=== PATIENT | female | born 2005 | race Caucasian/White ===

== ENCOUNTER 2024-10-18 14:02 | Emergency (ER) | payer OTHER, SELFPAY ==
[2024-10-18 14:32] VITALS: BP 118/65; PULSE 94; RESP 16; TEMP 36.4; O2SAT 99
--- NOTE | 2024-10-18 14:44 | ED.URI ---
HPI - URI/Sore Throat General Chief Complaint: Upper Respiratory Infection Stated Complaint: Sore Throat, Congestion, Achy Time Seen by Provider: 10/18/24 14:46 History of Present Illness HPI Narrative: 18-year-old female presented for complaint of sore throat, nasal congestion and body aches. Onset yesterday morning. Denies shortness of breath, wheezing, nausea vomiting diarrhea, fevers or chills. Taking ibuprofen, tylenol and nyquil. Related Data Allergies Allergy/AdvReac Type Severity Reaction Status Date / Time No Known Allergies Allergy Verified 10/18/24 14:47 Review of Systems Review of Systems: CONSTITUTIONAL: Denies fever, chills, or sweats. EYES: Denies visual changes, redness, or discharge. ENT: reports rhinorrhea, congestion, sore throat CARDIOVASCULAR: Denies chest pain, palpitations, or edema. RESPIRATORY: Denies dyspnea. GASTROINTESTINAL: Denies abdominal pain, nausea, vomiting, or diarrhea. SKIN: Denies rash NEUROLOGIC: Denies headache [facility] Social History Social History Smoking status: Never smoker Alcohol intake: never Exam Narrative: GENERAL: well-appearing EYES: conjunctivae clear ENT: Mucous membranes moist. TMs pearly pablo with normal light reflex bilaterally; no tragal tenderness. Oropharynx not erythematous without lesions. Tonsils enlarged 1+ and without exudate. No drooling, no hoarseness, no trismus, uvula midline. No tripod positioning, hot potato voice, or soft palate swelling. NECK: Supple. No lymphadenopathy CHEST: Clear to auscultation, breath sounds equal. No respiratory distress, speaks in full sentences. HEART: Regular rate and rhythm. No murmur heard. SKIN: Warm, dry, no rash. NEURO: Alert and oriented x3. Course Course Emergency Course: Patient is aware of diagnosis, understands and agrees to treatment plan. Anticipatory guidance given. Patient agrees to follow-up as directed and is aware of reasons to seek care at the emergency department. Portions of this record may have been created with voice recognition software Level of Care: Express Care Visit Vital Signs Vital signs: Vital Signs Temperature 97.6 F 10/18/24 14:32 Pulse Rate 94 10/18/24 14:32 Respiratory Rate 16 10/18/24 14:32 Blood Pressure 118/65 10/18/24 14:32 Pulse Oximetry 99 10/18/24 14:32 Temperature 97.6 F 10/18/24 14:32 Pulse Rate 94 10/18/24 14:32 Respiratory Rate 16 10/18/24 14:32 Blood Pressure 118/65 10/18/24 14:32 Pulse Oximetry 99 10/18/24 14:32 MDM - URI/Sore Throat MDM Narrative Medical decision making narrative: Negative flu, COVID, strep result reviewed with pt. Advise supportive treatments. Patient is appropriate for outpatient treatment and follow-up. Differential Diagnosis Differential diagnosis: Likely upper respiratory infection, viral infection and pharyngitis Lab Data Labs: Lab Results 10/18/24 Range/Units 14:46 POC Influenza A Ag Negative (Negative) POC Influenza B Ag Negative (Negative) POC SARS CoV-2 Ag Negative (Negative) POC Grp A Strep Screen Negative (Negative) Discharge Plan Discharge Clinical Impression: Upper respiratory infection Patient Disposition: Home, Self-Care Condition: Stable Instructions: Antibiotic Form, Upper Respiratory Infection (ED) Additional Instructions: Flu and COVID negative. Rapid strep swab was negative today You will be notified in a few days if the culture comes back positive for strep, and appropriate antibiotics will be called in at that time. if symptoms are due to a viral illness, it is not treated with antibiotics. Viral symptoms can be present for up to 10-14 days. Recommendations: Flonase spray and Zyrtec for sinus congestion Cough syrup may cause drowsiness; avoid driving or take it at night time. Tylenol every 8 hours as needed for pain/fever Soft foods, cool liquids, warm tea. Gargle with warm saltwater twice a day. Chloraseptic spray and throat lozenges. Rest and stay hydrated. --Follow up with your PCP --Go to the ER immediately if you cannot swallow your saliva, trouble breathing/wheezing, throat swelling, pain is persistent and severe Patient Language: Turkmen Follow-up/Referrals: Adrianne,Monet Ruth, CORPORATE COMPLIANCE MANAGER [Primary Care Provider] - Stand Alone Forms: Work/School Release IP Time of Disposition: 14:57
[2024-10-18 14:48] LABS: EDCOVIDSCREEN Negative (Negative); EDINFLUASCREEN Negative (Negative); EDINFLUBSCREEN Negative (Negative); EDSTREPNEGPOS1 Negative (Negative)
--- OUTSIDE RECORDS SUMMARY | 2024-10-25 16:37 | XMS_ITS | Clinical Summary ---
Author Organization [facility] Address On license of [facility] [place] [address] [place] [address] Care Team Providers Care Food And Beverage Cashier Name Role Phone Monet Silver [facility] Primary Care Provider + Allergies No known active allergies Medications busPIRone (BUSPAR) 15 MG tabletIndications: Situational anxiety TAKE 1 TABLET(15 MG) BY MOUTH TWICE DAILY 90 tablet 3 Active drospirenone-ethin yl estradiol (KISHOR) 3-0.02 MG tabletIndications: Encounter for initial prescription of contraceptive pills Take 1 tablet by mouth daily. 84 tablet 4 Active hydrOXYzine (ATARAX) 10 MG tabletIndications: Anxiety Take 1 tablet (10 mg total) by mouth 3 (three) times daily as needed for Itching. 30 tablet 5 4 Active Active Problems Problem Noted Date Diagnosed Date Anxiety 01/10/2024 BMI 22.0-22.9, adult 04/28/2018 Resolved Problems Problem Noted Date Diagnosed Date Resolved Date Well child visit 04/24/2018 07/01/2020 Immunizations Name Administration Dates Next Due Dtap (Acel-Immune) 06/22/2006, 5,04/19/2005,02/22 Dtap (Generic) 04/24/2016, 0,06/22/2006,06/14,04/19/2005,02/22/2005,01/12/2005 Flucelvax 6 Months+ (Prefill ed Syringe) 08/03/2019 HPV 11/05/2016,06/28/2016,05/04/2016 Hepatitis A Vaccine - 2 Dose 03/20/2007,06/22/20 06 Hepatitis B Pediatric 09/06/2005,01/17/2005,0310/2004 Hib Vaccine, Prp-D 06/22/2006, 5,04/19/2005,02/22 Influenza (Generic) 08/06/2008, 6,09/06/2005,08/01 Influenza Adult (Generic) 08/09/2023,07/30/2022, 08/01/2020 MMR (Generic) 12/29/2009,01/28/2006 Meningococcal (MenQuadfi) 07/18/2022 Meningococcal B 04/24/2016 PFIZER COVID-19 (WHALEY CAP), MRNA, LNP-S, PF, 30 MCG/0.3 ML TRACEY-SUCROSE, IM 11/10/2021 PFIZER COVID-19 (ORIGINAL FO RMULATION, PURPLE CAP) mRNA, LNP-S, PF, 30 MCG/0.3 ML DOSE 05/10/2021,04/17/2021 Pneumococcal (Generic) 01/28/2006,2004,04/19/2005,02/22 Polio Ipv (Generic) 01/28/2006,04/19/2005,2004 Polio Opv (Generic) 12/29/2009,04/09/2005,2004 Varicella Vaccine 12/29/2009,01/28/2006 Family History Medical History Relation Comments Diabetes Father Relation Status Comments Father Alive Mother Alive Social History Tobacco Use Types Packs/Day Years Used Date Smoking Tobacco: Never Smokeless Tobacco: Never Tobacco Cessation:Counseling Given: No Alcohol Use Standard Drinks/Week Comments No 0 (1 standard drink = 0.6 oz pur e alcohol) AUDIT-C Answer Date Recorded Frequency of Alcohol Consumption Never 04/30/2019 Average Number of Drinks Not on file 019 Frequency of Binge Drinking Not on file 04/20 PHQ-2 Answer Date Recorded Patient Health Questionnaire-2 Score 0 10/28/2023 Comments No Sex and Gender Information Value Date Recorded Sex Assigned at Not on file Legal Sex Female 6:09 PM CDT Gender Identity Not on file Sexual Orientation Not on file Last Filed Vital Signs Vital Sign Reading Time Taken Comments Blood Pressure 126/83 04/30/2024 4:50 PM CDT Pulse 93 04/30/2024 4:50 PM CDT Temperature 36.6 ??C (97.9 ??F) 04/30/2024 4:50 PM CD T Respiratory Rate 16 04/30/2024 4:50 PM CDT Oxygen Saturation 99% 04/30/2024 4:50 PM CDT Inhaled Oxygen Concentration - - Weight 80.7 kg (178 lb) 04/30/2024 4:50 PM CDT Height 180.3 cm (5' 11 ) 04/30/2024 4:50 PM CDT Body Mass Index 24.83 04/30/2024 4:50 PM CDT Plan of Treatment Health Maintenance Due Date Last Done Comments Hepatitis C 2022 COVID-19 Vaccine ( season) 2024 08/09/2023, 08/29/2022, 11/10/2021, Additional history exists Influenza Adult (#1) 2024 08/09/2023, 07/30/2022, 08/01/2020, Additional history exists Annual Physical 04/30/2025 04/30/2024, 10/2022, 07/18/2022, Additional history exists DTaP, Tdap and Td Vaccines (7 - Tdap) 04/24/2026 04/24/2016, 12/29/2009, 06/22/2006, Additional history exists Hepatitis B Vaccines Completed 09/06/2005, 01/17/2005, 2004 Pneumococcal Vaccine: Pediatrics (0 to 5 Years) and At-Risk Patients (6 to 64 Years) Aged Out 01/28/2006, 06/14/2005, 04/19/2005, Additional history exists No longer eligible based on patient's age to complete this topic HPV Vaccines Completed 11/05/2016, 05/2016, 05/04/2016 Meningococcal Vaccine Completed 07/18/2022, 016 RSV Immunizations Under 20 Months Aged Out No longer eligible based on patient's age to complete this topic Insurance [employer] Care Teams Food And Beverage Cashier Relationship Specialty Start Date End Date Monet Silver, MECHANICAL INSULATOR-BC [id number], [address] [place] [address] PCP - General Nurse Practitioner Family 10/28/23
--- OUTSIDE RECORDS SUMMARY | 2024-10-25 16:37 | XMS_ITS | Encounter Summary ---
Author Organization [facility] Address [address] [place] [address]. [place] [address] [place] [address] Care Team Providers Care Preparation Supervisor Name Role Phone Monet SilverP- Primary Care Provider + Encounter Details Date Type Department Care Team (Latest Contact Info) Description 04/22/2024 Scan HEALTH INFO SR[facility]CS Scanned, Doc Med Group Social History Tobacco Use Types Packs/Day Years Used Date Smoking Tobacco: Never Smokeless Tobacco: Never Alcohol Use Standard Drinks/Week Comments No 0 [...] on file Sexual Orientation Not on file documented as of this encounter Plan of Treatment Not on file documented as of this encounter Visit Diagnoses Not on filedocumented in this encounter Additional Health Concerns Assessment Noted Time PHQ-9 Depression Total Score: 0 10/28/19 24 4:50 PM SPINNER FRAME documented as of this encounter Care Teams Preparation Supervisor Relationship Specialty Start Date End Date Monet Silver FNP-TIP [id number], [address] [place] [id number] PCP - General Nurse Practitioner Family 10/28/23 documented as of this encounter
--- OUTSIDE RECORDS SUMMARY | 2024-10-25 16:37 | XMS_ITS | Encounter Summary ---
Author Organization [facility] Address [facility] [facility] [place] [address] [place] [address] Care Team Providers Care Wood Processing Worker Name Role Phone Monet Silver [facility] Primary Care Provider + Encounter Details Date Type Department Care Team (Late st Contact Info) Description 07/24/2024 Orders Only [facility] - [place] [address] [place] [address] Mike Garcia MD [address] [place] [address] Social History Tobacco Use Types Packs/Day Years [...] as of this encounter Plan of Treatment Scheduled Orders Name Type Priority Associated Diagnoses Orde r Schedule OXR LT FOOT M3V Imaging Routine Pain in left foot Expected: 07/27/2024, Expires: 07/24/2025 documented as of this encounter Visit Diagnoses Diagnosis Pain in left foot- Primary Pain in limb documented in this encounter Additional Health Concerns Assessment Noted Time PHQ-9 Depression Total Score: 0 10/28/19 4:50 PM AGRICULTURE LABORATORY TECHNICIAN documented as of this encounter Care Teams Wood Processing Worker Relationship Specialty Start Date End Date Monet Silver, DRAPERY ESTIMATOR- [phone], [address] [place] [id number] PCP - General Nurse Practitioner Family 10/28/23 documented as of this encounter
--- OUTSIDE RECORDS SUMMARY | 2024-10-25 16:37 | XMS_ITS | Patient Health Summary ---
Author Organization [facility] Address [address] [place] [address] Care Team Providers Care Researcher Name Role Phone Samina Bui MD Unavailable Tian Jenkins MD Primary Care Provider + [phone] Note from [facility],non-owned Affiliates and Associated Physician Practices is amultiple site organization consisting of ambulatory clinics and hospital sitesin [place], [place], [place] and [place]. This disclosure is being madepursuant to the Care Everywhere program and may not contain all information available regarding this patient. Last updated 18.[facility] Allergies No known active allergies Medications * Be aware that medications may not be up to date on this document. Alwaysverify current medications with the patient. * cetirizine (ZYRTEC) 5 MG/5ML syrup Take 2.5 mg by mouth daily. Immunizations * DTaP VACCINE IM (6wk-6yrs)(Given 06/22/2006, 06/14/2005, 04/19/2005, 02/22/2005) * HEP A PEDS 2 DOSE(Given 03/20/2007, 06/22/2006) * HEP B VACCINE, PED/ADOL(Given 09/06/2005, 01/17/2005, 2004) * HIB BOOSTER(Given 06/22/2006, 06/14/2005, 04/19/2005, 02/22/2005) * INFLUENZA(Given 08/06/2008, 08/01/2006, 09/06/2005, 08/01/2005) * MMR(Given 01/28/2006) * PNEUMOCOCCAL CONJ, PEDS(Given 01/28/2006, 06/14/2005, 04/19/2005, 02/22/2005) * POLIO IPV(Given 01/28/2006, 04/19/2005, 2004) * VARICELLA(Given 01/28/2006) Social History Tobacco Use Types Packs/Day Years Used Date Smoking Tobacco: Never Assessed Sex and Gender Information Value Date Recorded Sex Assigned at Not on file Gender Identity Not on file Sexual Orientation Not on file Last Filed Vital Signs Vital Sign Reading Time Taken Comments Blood Pressure 103/79 07/08/2010 9:40 PM CDT Pulse 109 07/08/2010 9:40 PM CDT Temperature 36.6 ??C (97.8 ??F) 07/08/2010 6:02 PM CD T Respiratory Rate 17 07/08/2010 9:40 PM CDT Oxygen Saturation 99% 07/08/2010 9:40 PM CDT Inhaled Oxygen Concentration - - Weight 23 kg (50 lb 11.3 oz) 07/08/2010 6:02 PM CDT Height - - Body Mass Index - - Procedures * ED SEDATION(Performed 07/08/2010) * ED SEDATION(Performed 07/08/2010) Results * ED SEDATION (07/08/2010 10:32 PM CDT) Narrative 07/08/2010 10:32 PM CDT 07/08/2010 ?6:31 PM Azalia Neri [id number] History Chief Complaint Patient presents with ? ? Laceration ??pt was running, tripped and fell into corner of [facility] cabinet. ?? Incident around 1430. ??No LOC. ??No vomiting. ??about 1.5cm laceration. ??bleeding controlled. Laceration The incident occurred 3 to 5 hours ago. The laceration is located on the face.The laceration is 2 cm in size. The depth of the laceration is through muscle.The quality of the laceration is: straight.The pain has been improving since onset. She reports no foreign bodies present. Her tetanus status is UTD. Past Medical History Diagnosis Date ? ? Routine or Child Health Check 08/02/08 ? ? Acute Upper Respiratory Infections of Unspecified Site 09/26/07, 12/16/07 ??02/20/08 ? ? UNSPECIFIED OTITIS MEDIA 12/16/07 ? ? Unspecified Otalgia 12/29/07 ? ? Acute Pharyngitis 04/13/08 ? ? Unspecified Esotropia 04/13/08 ? ? Streptococcal Sore Throat 11/02/08 ? ? Acute Sinusitis, Unspecified 01/01/09 No past surgical history on file. History Social History ? ? Marital Status: Single ??Spouse Name: N/A ??Number of Children: N/A ? ? Years of Education: N/A Occupational History ? ? Not on file. Social History Main Topics ? ? Tobacco Use: Not on file ? ? Alcohol Use: Not on file ? ? Drug Use: Not on file ? ? Sexually Active: Not on file Other Topics Concern ? ? Not on file Social History Narrative ? ? No narrative on file Medications Current outpatient prescriptions Medication Sig Dispense Refill ? ? cetirizine (ZYRTEC) 5 MG/5ML syrup Take 2.5 mg by mouth daily. ? Review of Systems Constitutional: Negative. ?? HENT: Negative. ?? Eyes: Negative. ?? Respiratory: Negative. ?? Cardiovascular: Negative. ?? Neurological: Negative for dizziness and headaches. BP 102/72 Pulse 104 Temp 97.8 ??F Resp 22 Wt 23 kg (50 lb 11.3 oz) Physical Exam Constitutional: She appears well-developed and well-nourished. She is active. HENT: Head: Atraumatic. Right Ear: Tympanic membrane normal. Left Ear: Tympanic membrane normal. Nose: Nose normal. Mouth/Throat: Dentition is normal. Oropharynx is clear. ? 2 cm horizontal laceration through muscle above left eyebrow Eyes: Conjunctivae and extraocular motions are normal. Pupils are equal, round, and reactive to light. Neck: Normal range of motion. Neck supple. Cardiovascular: Normal rate, regular rhythm, S1 normal and S2 normal. ?? Pulmonary/Chest: Effort normal and breath sounds normal. Procedures Sedation Date/Time: 07/08/2010 7:29 PM Performed by: MILA LOVE Authorized by: MILA LOVE Consent: Written consent obtained. Risks and benefits: risks, benefits and alternatives were discussed Consent given by: parent Patient understanding: patient states understanding of the procedure being performed Patient consent: the patient's understanding of the procedure matches consent given Procedure consent: procedure consent matches procedure scheduled Relevant documents: relevant documents present and verified Test results: test results available and properly labeled Site marked: the operative site was marked Imaging studies: imaging studies available Required items: required blood products, implants, devices, and special equipment available Patient identity confirmed: arm band Time out: Immediately prior to procedure a time out was called to verify the correct patient, procedure, equipment, ict customer support officer and site/side marked as required. ASA Class I-No underlying medical problems Likelihood of discomfort High Ability to remain immobile Poor Anticipated level of sedation Moderate History of sleep apnea/snoring No Limited ROM-head,mouth,neck No Loose or chipped teeth No Chest assessment Clear Heart assessment Regular Rhythm Patient sedated: yes Sedation Date/Time: 07/08/2010 8:30 PM Performed by: MILA LOVE Authorized by: MILA LOVE Consent: Written consent obtained. Consent given by: parent Patient understanding: patient states understanding of the procedure being performed Patient consent: the patient's understanding of the procedure matches consent given Procedure consent: procedure consent matches procedure scheduled Relevant documents: relevant documents present and verified Test results: test results available and properly labeled Site marked: the operative site was marked Imaging studies: imaging studies available Required items: required blood products, implants, devices, and special equipment available Patient identity confirmed: arm band Time out: Immediately prior to procedure a time out was called to verify the correct patient, procedure, equipment, ict customer support officer and site/side marked as required. ASA Class I-No underlying medical problems Likelihood of discomfort High Ability to remain immobile Poor Anticipated level of sedation Moderate History of sleep apnea/snoring No Limited ROM-head,mouth,neck No Loose or chipped teeth No Chest assessment Clear Heart assessment Regular Rhythm Patient sedated: no Patient tolerance: Patient tolerated the procedure well with no immediate complications. EKG Interpretation Lab/SPO2 Interpretation Medical Decision Making I have reviewed the: Nursing Notes and Vitals. I have discussed the case with ENT. Progress Notes: I have personally seen and examined this patient. I have fully participated in the care of this patient. I have reviewed all pertinent clinical information, including history, physical exam and plan. I have reviewed the nurses notes. I have reviewed available labs and radiographic studies. ? ED Plan/Course: laceration repaired by ENT-see procedure note. Clinical Impression: facial laceration Procedure Note Mila Love MD - 07/08/2010 6:31 PM CDT 07/08/2010 6:31 PM Azalia E Halle [id number] History Chief Complaint Patient presents with ? ? Laceration pt was running, tripped and fell into corner of [facility] cabinet. Incidentaround 1430. No LOC. No vomiting. about 1.5cm laceration. bleedingcontrolled. Laceration The incident occurred 3 to 5 hours ago. The laceration is located on theface.The laceration is 2 cm in size. The depth of the laceration isthrough muscle.The quality of the laceration is: straight.The pain hasbeen improving since onset. She reports no foreign bodies present. Hertetanus status is UTD. Past Medical History Diagnosis Date ? ? Routine Infant or Child Health Check 08/02/08 ? ? Acute Upper Respiratory Infections of Unspecified Site 09/26/07,12/16/07 02/20/08 ? ? UNSPECIFIED OTITIS MEDIA 12/16/07 ? ? Unspecified Otalgia 12/29/07 ? ? Acute Pharyngitis 04/13/08 ? ? Unspecified Esotropia 04/13/08 ? ? Streptococcal Sore Throat 11/02/08 ? ? Acute Sinusitis, Unspecified 01/01/09 No past surgical history on file. History Social History ? ? Marital Status: Single Spouse Name: N/A Number of Children: N/A ? ? Years of Education: N/A Occupational History ? ? Not on file. Social History Main Topics ? ? Tobacco Use: Not on file ? ? Alcohol Use: Not on file ? ? Drug Use: Not on file ? ? Sexually Active: Not on file Other Topics Concern ? ? Not on file Social History Narrative ? ? No narrative on file Medications Current outpatient prescriptions Medication Sig Dispense Refill ? ? cetirizine (ZYRTEC) 5 MG/5ML syrup Take 2.5 mg by mouth daily. Review of Systems Constitutional: Negative. HENT: Negative. Eyes: Negative. Respiratory: Negative. Cardiovascular: Negative. Neurological: Negative for dizziness and headaches. BP 102/72 Pulse 104 Temp 97.8 ??F Resp 22 Wt 23 kg (50 lb 11.3oz) Physical Exam Constitutional: She appears well-developed and well-nourished. She isactive. HENT: Head: Atraumatic. Right Ear: Tympanic membrane normal. Left Ear: Tympanic membrane normal. Nose: Nose normal. Mouth/Throat: Dentition is normal. Oropharynx is clear. 2 cm horizontal laceration through muscle above left eyebrow Eyes: Conjunctivae and extraocular motions are normal. Pupils are equal,round, and reactive to light. Neck: Normal range of motion. Neck supple. Cardiovascular: Normal rate, regular rhythm, S1 normal and S2 normal. Pulmonary/Chest: Effort normal and breath sounds normal. Procedures Sedation Date/Time: 07/08/2010 7:29 PM Performed by: MILA LOVE Authorized by: MILA LOVE Consent: Written consent obtained. Risks and benefits: risks, benefits and alternatives were discussed Consent given by: parent Patient understanding: patient states understanding of the procedure beingperformed Patient consent: the patient's understanding of the procedure matchesconsent given Procedure consent: procedure consent matches procedure scheduled Relevant documents: relevant documents present and verified Test results: test results available and properly labeled Site marked: the operative site was marked Imaging studies: imaging studies available Required items: required blood products, implants, devices, and specialequipment available Patient identity confirmed: arm band Time out: Immediately prior to procedure a time out was called to verifythe correct patient, procedure, equipment, ict customer support officer and site/sidemarked as required. ASA Class I-No underlying medical problems Likelihood of discomfort High Ability to remain immobile Poor Anticipated level of sedation Moderate History of sleep apnea/snoring No Limited ROM-head,mouth,neck No Loose or chipped teeth No Chest assessment Clear Heart assessment Regular Rhythm Patient sedated: yes Sedation Date/Time: 07/08/2010 8:30 PM Performed by: MILA LOVE Authorized by: MILA LOVE Consent: Written consent obtained. Consent given by: parent Patient understanding: patient states understanding of the procedure beingperformed Patient consent: the patient's understanding of the procedure matchesconsent given Procedure consent: procedure consent matches procedure scheduled Relevant documents: relevant documents present and verified Test results: test results available and properly labeled Site marked: the operative site was marked Imaging studies: imaging studies available Required items: required blood products, implants, devices, and specialequipment available Patient identity confirmed: arm band Time out: Immediately prior to procedure a time out was called to verifythe correct patient, procedure, equipment, ict customer support officer and site/sidemarked as required. ASA Class I-No underlying medical problems Likelihood of discomfort High Ability to remain immobile Poor Anticipated level of sedation Moderate History of sleep apnea/snoring No Limited ROM-head,mouth,neck No Loose or chipped teeth No Chest assessment Clear Heart assessment Regular Rhythm Patient sedated: no Patient tolerance: Patient tolerated the procedure well with no immediatecomplications. EKG Interpretation Lab/SPO2 Interpretation Medical Decision Making I have reviewed the: Nursing Notes and Vitals. I have discussed the case with ENT. Progress Notes: I have personally seen and examined this patient. I havefully participated in the care of this patient. I have reviewed allpertinent clinical information, including history, physical exam and plan.I have reviewed the nurses notes. I have reviewed available labs andradiographic studies. ED Plan/Course: laceration repaired by ENT-see procedure note. Clinical Impression: facial laceration Mila Love MD PROCEDURE/MINOR SURG ICAL ORDERABLES * ED SEDATION (07/08/2010 10:32 PM CDT) Narrative 07/08/2010 10:32 PM CDT 07/08/2010 ?6:31 PM Azalia Neri [id number] History Chief Complaint Patient presents with ? ? Laceration ??pt was running, tripped and fell into corner of [facility] cabinet. ?? Incident around 1430. ??No LOC. ??No vomiting. ??about 1.5cm laceration. ??bleeding controlled. Laceration The incident occurred 3 to 5 hours ago. The laceration is located on the face.The laceration is 2 cm in size. The depth of the laceration is through muscle.The quality of the laceration is: straight.The pain has been improving since onset. She reports no foreign bodies present. Her tetanus status is UTD. Past Medical History Diagnosis Date ? ? Routine Infant or Child Health Check 08/02/08 ? ? Acute Upper Respiratory Infections of Unspecified Site 09/26/07, 12/16/07 ??02/20/08 ? ? UNSPECIFIED OTITIS MEDIA 12/16/07 ? ? Unspecified Otalgia 12/29/07 ? ? Acute Pharyngitis 04/13/08 ? ? Unspecified Esotropia 04/13/08 ? ? Streptococcal Sore Throat 11/02/08 ? ? Acute Sinusitis, Unspecified 01/01/09 No past surgical history on file. History Social History ? ? Marital Status: Single ??Spouse Name: N/A ??Number of Children: N/A ? ? Years of Education: N/A Occupational History ? ? Not on file. Social History Main Topics ? ? Tobacco Use: Not on file ? ? Alcohol Use: Not on file ? ? Drug Use: Not on file ? ? Sexually Active: Not on file Other Topics Concern ? ? Not on file Social History Narrative ? ? No narrative on file Medications Current outpatient prescriptions Medication Sig Dispense Refill ? ? cetirizine (ZYRTEC) 5 MG/5ML syrup Take 2.5 mg by mouth daily. ? Review of Systems Constitutional: Negative. ?? HENT: Negative. ?? Eyes: Negative. ?? Respiratory: Negative. ?? Cardiovascular: Negative. ?? Neurological: Negative for dizziness and headaches. BP 102/72 Pulse 104 Temp 97.8 ??F Resp 22 Wt 23 kg (50 lb 11.3 oz) Physical Exam Constitutional: She appears well-developed and well-nourished. She is active. HENT: Head: Atraumatic. Right Ear: Tympanic membrane normal. Left Ear: Tympanic membrane normal. Nose: Nose normal. Mouth/Throat: Dentition is normal. Oropharynx is clear. ? 2 cm horizontal laceration through muscle above left eyebrow Eyes: Conjunctivae and extraocular motions are normal. Pupils are equal, round, and reactive to light. Neck: Normal range of motion. Neck supple. Cardiovascular: Normal rate, regular rhythm, S1 normal and S2 normal. ?? Pulmonary/Chest: Effort normal and breath sounds normal. Procedures Sedation Date/Time: 07/08/2010 7:29 PM Performed by: MILA LOVE Authorized by: MILA LOVE Consent: Written consent obtained. Risks and benefits: risks, benefits and alternatives were discussed Consent given by: parent Patient understanding: patient states understanding of the procedure being performed Patient consent: the patient's understanding of the procedure matches consent given Procedure consent: procedure consent matches procedure scheduled Relevant documents: relevant documents present and verified Test results: test results available and properly labeled Site marked: the operative site was marked Imaging studies: imaging studies available Required items: required blood products, implants, devices, and special equipment available Patient identity confirmed: arm band Time out: Immediately prior to procedure a time out was called to verify the correct patient, procedure, equipment, ict customer support officer and site/side marked as required. ASA Class I-No underlying medical problems Likelihood of discomfort High Ability to remain immobile Poor Anticipated level of sedation Moderate History of sleep apnea/snoring No Limited ROM-head,mouth,neck No Loose or chipped teeth No Chest assessment Clear Heart assessment Regular Rhythm Patient sedated: yes Sedation Date/Time: 07/08/2010 8:30 PM Performed by: MILA LOVE Authorized by: MILA LOVE Consent: Written consent obtained. Consent given by: parent Patient understanding: patient states understanding of the procedure being performed Patient consent: the patient's understanding of the procedure matches consent given Procedure consent: procedure consent matches procedure scheduled Relevant documents: relevant documents present and verified Test results: test results available and properly labeled Site marked: the operative site was marked Imaging studies: imaging studies available Required items: required blood products, implants, devices, and special equipment available Patient identity confirmed: arm band Time out: Immediately prior to procedure a time out was called to verify the correct patient, procedure, equipment, ict customer support officer and site/side marked as required. ASA Class I-No underlying medical problems Likelihood of discomfort High Ability to remain immobile Poor Anticipated level of sedation Moderate History of sleep apnea/snoring No Limited ROM-head,mouth,neck No Loose or chipped teeth No Chest assessment Clear Heart assessment Regular Rhythm Patient sedated: no Patient tolerance: Patient tolerated the procedure well with no immediate complications. EKG Interpretation Lab/SPO2 Interpretation Medical Decision Making I have reviewed the: Nursing Notes and Vitals. I have discussed the case with ENT. Progress Notes: I have personally seen and examined this patient. I have fully participated in the care of this patient. I have reviewed all pertinent clinical information, including history, physical exam and plan. I have reviewed the nurses notes. I have reviewed available labs and radiographic studies. ? ED Plan/Course: laceration repaired by ENT-see procedure note. Clinical Impression: facial laceration Procedure Note Mila Love MD - 07/08/2010 6:31 PM CDT 07/08/2010 6:31 PM Azalia Neri [id number] History Chief Complaint Patient presents with ? ? Laceration pt was running, tripped and fell into corner of [facility]. Incidentaround 1430. No LOC. No vomiting. about 1.5cm laceration. bleedingcontrolled. Laceration The incident occurred 3 to 5 hours ago. The laceration is located on theface.The laceration is 2 cm in size. The depth of the laceration isthrough muscle.The quality of the laceration is: straight.The pain hasbeen improving since onset. She reports no foreign bodies present. Hertetanus status is UTD. Past Medical History Diagnosis Date ? ? Routine Infant or Child Health Check 08/02/08 ? ? Acute Upper Respiratory Infections of Unspecified Site 09/26/07,12/16/07 02/20/08 ? ? UNSPECIFIED OTITIS MEDIA 12/16/07 ? ? Unspecified Otalgia 12/29/07 ? ? Acute Pharyngitis 04/13/08 ? ? Unspecified Esotropia 04/13/08 ? ? Streptococcal Sore Throat 11/02/08 ? ? Acute Sinusitis, Unspecified 01/01/09 No past surgical history on file. History Social History ? ? Marital Status: Single Spouse Name: N/A Number of Children: N/A ? ? Years of Education: N/A Occupational History ? ? Not on file. Social History Main Topics ? ? Tobacco Use: Not on file ? ? Alcohol Use: Not on file ? ? Drug Use: Not on file ? ? Sexually Active: Not on file Other Topics Concern ? ? Not on file Social History Narrative ? ? No narrative on file Medications Current outpatient prescriptions Medication Sig Dispense Refill ? ? cetirizine (ZYRTEC) 5 MG/5ML syrup Take 2.5 mg by mouth daily. Review of Systems Constitutional: Negative. HENT: Negative. Eyes: Negative. Respiratory: Negative. Cardiovascular: Negative. Neurological: Negative for dizziness and headaches. BP 102/72 Pulse 104 Temp 97.8 ??F Resp 22 Wt 23 kg (50 lb 11.3oz) Physical Exam Constitutional: She appears well-developed and well-nourished. She isactive. HENT: Head: Atraumatic. Right Ear: Tympanic membrane normal. Left Ear: Tympanic membrane normal. Nose: Nose normal. Mouth/Throat: Dentition is normal. Oropharynx is clear. 2 cm horizontal laceration through muscle above left eyebrow Eyes: Conjunctivae and extraocular motions are normal. Pupils are equal,round, and reactive to light. Neck: Normal range of motion. Neck supple. Cardiovascular: Normal rate, regular rhythm, S1 normal and S2 normal. Pulmonary/Chest: Effort normal and breath sounds normal. Procedures Sedation Date/Time: 07/08/2010 7:29 PM Performed by: MILA LOVE Authorized by: MILA LOVE Consent: Written consent obtained. Risks and benefits: risks, benefits and alternatives were discussed Consent given by: parent Patient understanding: patient states understanding of the procedure beingperformed Patient consent: the patient's understanding of the procedure matchesconsent given Procedure consent: procedure consent matches procedure scheduled Relevant documents: relevant documents present and verified Test results: test results available and properly labeled Site marked: the operative site was marked Imaging studies: imaging studies available Required items: required blood products, implants, devices, and specialequipment available Patient identity confirmed: arm band Time out: Immediately prior to procedure a time out was called to verifythe correct patient, procedure, equipment, ict customer support officer and site/sidemarked as required. ASA Class I-No underlying medical problems Likelihood of discomfort High Ability to remain immobile Poor Anticipated level of sedation Moderate History of sleep apnea/snoring No Limited ROM-head,mouth,neck No Loose or chipped teeth No Chest assessment Clear Heart assessment Regular Rhythm Patient sedated: yes Sedation Date/Time: 07/08/2010 8:30 PM Performed by: MILA LOVE Authorized by: MILA LOVE Consent: Written consent obtained. Consent given by: parent Patient understanding: patient states understanding of the procedure beingperformed Patient consent: the patient's understanding of the procedure matchesconsent given Procedure consent: procedure consent matches procedure scheduled Relevant documents: relevant documents present and verified Test results: test results available and properly labeled Site marked: the operative site was marked Imaging studies: imaging studies available Required items: required blood products, implants, devices, and specialequipment available Patient identity confirmed: arm band Time out: Immediately prior to procedure a time out was called to verifythe correct patient, procedure, equipment, ict customer support officer and site/sidemarked as required. ASA Class I-No underlying medical problems Likelihood of discomfort High Ability to remain immobile Poor Anticipated level of sedation Moderate History of sleep apnea/snoring No Limited ROM-head,mouth,neck No Loose or chipped teeth No Chest assessment Clear Heart assessment Regular Rhythm Patient sedated: no Patient tolerance: Patient tolerated the procedure well with no immediatecomplications. EKG Interpretation Lab/SPO2 Interpretation Medical Decision Making I have reviewed the: Nursing Notes and Vitals. I have discussed the case with ENT. Progress Notes: I have personally seen and examined this patient. I havefully participated in the care of this patient. I have reviewed allpertinent clinical information, including history, physical exam and plan.I have reviewed the nurses notes. I have reviewed available labs andradiographic studies. ED Plan/Course: laceration repaired by ENT-see procedure note. Clinical Impression: facial laceration Mila Love MD PROCEDURE/MINOR SURG ICAL ORDERABLES Care Teams Researcher Relationship Specialty Start Date End Date Samina Bui MD PCP - Pediatrics 08/25/09 Tian Jenkins MD [address] [place] [address] PCP - General 07/08/10
--- OUTSIDE RECORDS SUMMARY | 2024-10-25 16:37 | XMS_ITS | Encounter Summary ---
Author Organization [facility] Address Formerly [facility] [place] [address] [place] [address] Care Team Providers Care Tree Climber Name Role Phone Monet SilverP- Primary Care Provider + Encounter Details Date Type Department Care Team (Latest Contact Info) Description 04/22/2024 Travel Social History Tobacco Use Types Packs/Day Years [...] Total Score: 0 10/28/19 24 4:50 PM MAINTENANCE AND OPERATIONS SUPERVISOR documented as of this encounter Care Teams Tree Climber Relationship Specialty Start Date End Date Monet Silver FNP-BC [address], [address] [place] [address] PCP - General Nurse Practitioner Family 10/28/23 documented as of this encounter
--- OUTSIDE RECORDS SUMMARY | 2024-10-25 16:37 | XMS_ITS | Encounter Summary ---
Author Organization [facility] Address Formerly [facility] [facility] [place] [place] [address] [place] [address] Care Team Providers Care Piece Hand Name Role Phone Nika Fitzgerald [facility] Primary Care Provider + Reason for Visit * Reason Comments Medication Follow up medication renewal Encounter Details Date Type Department Care Team (Late st Contact Info) Description 04/30/2024 4:40 PM CDT Office Visit [facility] [id number] [place] [id number] Nika Fitzgerald, [facility] [id number] [place] [address] [address] [place] [address] Medication (Follow up medication renewal) Social History Tobacco Use Types Packs/Day Years [...] on file documented as of this encounter Last Filed Vital Signs Vital Sign Reading [...] Mass Index 24.83 04/30/2024 4:50 PM CDT documented in this encounter Progress Notes * Nika Fitzgerald, AUTOMOTIVE SALES EXECUTIVE-BC - 04/30/2024 4:40 PM CDT Reason for Visit: SPORTS PHYSICAL EXAM: History of Present Illness: Azalia Neri is a 18-year-old female with past medical history of anxiety. She presents to the clinic today for sports physical. Today, she reports feeling well, and without any health complaints. She denies history of concussion, arrhythmia, heart murmur, seizure disorder, asthma, musculoskeletal injuries or disease. She saw orthopedics for evaluation of foot pain and no surgery wasneeded. She was advised against surgery due to its risks and low success rate. The doctor explainedthat the pain was due to tight calf muscles putting pressure on the toes, causing inflammation. Thepatient is doing calf stretches and has been prescribed insoles for her shoes. The foot pain does not interfere with daily activities but may be problematic during sports season. She reports her uncle recently from sudden at age 45 yo. She denies dizziness, CP, dyspnea, or near syncope. She has had palpitations in the past that she attributed to anxiety. Echocardiogram and holter monitor were ordered but she has not yet scheduled. Past Medical History: Diagnosis Date Allergy seasonal Anxiety No past surgical history on file. Family History Problem Relation Name Age of Onset Diabetes Father Aren Social History Tobacco Use Smoking status: Never Smokeless tobacco: Never Vaping Use Vaping status: Never Used Substance Use Topics Alcohol use: No Drug use: No Review of Systems - General: No new diagnoses since the last visit. Reports not having fevers, chills, or night sweats. - Cardiovascular: No chest pain, shortness of breath, irregular heartbeat, or murmurs. Family history includes an uncle who suddenly at age 45 due to a heart-related issue. - Respiratory: No shortness of breath, wheezing. - Gastrointestinal: No diarrhea, constipation. - Genitourinary: No urinary symptoms. - Musculoskeletal: No broken bones, back pain, or injuries. Able to perform various movements without issues. - Neurological: No history of seizures, head injuries, dizziness, or fainting. No numbness or tingling. - Psychiatric: History of anxiety, no recent changes. - Dermatologic: No rashes. - HEENT: No hearing issues, ringing in ears, trouble swallowing. No lumps or changes in the breast. - Ophthalmologic: Vision test required, last checked during the last physical. - Allergies: No changes in allergies. Patient has no known allergies. Current Outpatient Medications Medication Instructions busPIRone (BUSPAR) 15 MG tablet TAKE 1 TABLET(15 MG) BY MOUTH TWICE DAILY drospirenone-ethinyl estradiol (KISHOR) 3-0.02 MG tablet 1 tablet, Oral, Daily hydrOXYzine (ATARAX) 10 mg, Oral, 3 times daily PRN OBJECTIVE: Vitals: 04/30/24 1650 BP: 126/83 Pulse: 93 Resp: 16 Temp: 97.9 ??F (36.6 ??C) SpO2: 99% Body mass index is 24.83 kg/m??. Physical Exam Vitals reviewed. Constitutional: General: She is not in acute distress. Appearance: Normal appearance. She is normal weight. She is not ill-appearing or toxic-appearing. HENT: Head: Normocephalic and atraumatic. Right Ear: Tympanic membrane, ear canal and external ear normal. There is no impacted cerumen. Left Ear: Tympanic membrane, ear canal and external ear normal. There is no impacted cerumen. Nose: Nose normal. Mouth/Throat: Mouth: Mucous membranes are moist. Pharynx: Oropharynx is clear. Eyes: General: No scleral icterus. Right eye: No discharge. Left eye: No discharge. Extraocular Movements: Extraocular movements intact. Conjunctiva/sclera: Conjunctivae normal. Pupils: Pupils are equal, round, and reactive to light. Neck: Thyroid: No thyroid mass, thyromegaly or thyroid tenderness. Vascular: No carotid bruit. Trachea: Trachea normal. Cardiovascular: Rate and Rhythm: Normal rate and regular rhythm. Pulses: Normal pulses. Radial pulses are 2+ on the right side and 2+ on the left side. Dorsalis pedis pulses are 2+ on the right side and 2+ on the left side. Heart sounds: Normal heart sounds. No murmur heard. No gallop. Pulmonary: Effort: Pulmonary effort is normal. No respiratory distress. Breath sounds: Normal breath sounds. No wheezing, rhonchi or rales. Abdominal: General: Bowel sounds are normal. There is no distension. Palpations: Abdomen is soft. There is no mass. Tenderness: There is no abdominal tenderness. There is no right CVA tenderness, left CVA tendernessor guarding. Musculoskeletal: General: No swelling, tenderness, deformity or signs of injury. Normal range of motion. Cervical back: Normal range of motion and neck supple. Right lower leg: No edema. Left lower leg: No edema. Lymphadenopathy: Cervical: No cervical adenopathy. Skin: General: Skin is warm and dry. Capillary Refill: Capillary refill takes less than 2 seconds. Findings: No lesion or rash. Neurological: General: No focal deficit present. Mental Status: She is alert and oriented to person, place, and time. Cranial Nerves: Cranial nerves 2-12 are intact. Sensory: Sensation is intact. Motor: Motor function is intact. No weakness or tremor. Coordination: Coordination is intact. Gait: Gait is intact. Deep Tendon Reflexes: Reflex Scores: Bicep reflexes are 2+ on the right side and 2+ on the left side. Patellar reflexes are 2+ on the right side and 2+ on the left side. Psychiatric: Mood and Affect: Mood and affect normal. Speech: Speech normal. Speech is not slurred. Behavior: Behavior normal. Behavior is cooperative. Thought Content: Thought content normal. Cognition and Memory: Cognition normal. Judgment: Judgment normal. VISION: Right Eye: 20/20 Left Eye: 20/20 ASSESSMENT: Healthy 18-year-old female who is cleared for sports activities as desired pending negative EKG. Encounter Diagnose(s) ICD-10-CM SNOMED CT(R) 1. Routine sports physical exam Z02.5 SPECIAL EXAMINATION STATUS ECG 12 lead 2. Family history of sudden Z84.89 FAMILY HISTORY OF SUDDEN ECG 12 lead PLAN: School Preparticipation Examination form reviewed with gaurdian and student, and completed, and will be released to patient pending EKG results. [facility] Certificate of Child Health Examination Form reviewed, including immunizations,health history, risk evaluation. Physical exam portion completed and signed, with approval for physical education and interscholastic sports for the next year.* Immunizations reviewed and Up to date. 4. Anticipatory guidance on diet, activity, safe sex, tobacco use, substance use and abuse. She verbalized understanding. RADHA DILLON 05/10/2023 5:14 PM documented in this encounter Plan of Treatment Not on file documented as of this encounter Results * ECG 12 lead (05/20/2024 11:13 AM CDT) 05/20/2024 11:1 3 AM CDT Narrative [facility] - 05/22/2024 5:15 PM CDT ?[facility] ? Test Date: ?2024-05-20 Pat Name: ? AZALIAMAYRA BUSCHKODAK ?Department: ?? 85 ? Room: ? Gender: ? Female ? Disc Jockey: ?? : ?2005 ? Requested By: NIKA FITZGERALD Order Number: [id number] ? Reading : ?? Buddy Allen ? Measurements Intervals ?Otto ? Rate: ? 70 ? P: ?53 TX: ? 182 ?QRS: ?47 QRSD: ? 96 ? T: ?33 QT: ? 363 ? QTc: ?392 ? Interpretive Statements SINUS RHYTHM Compared to ECG 10/19/2019 11:32:52 No significant changes Procedure Note Buddy Allen MD - 05/22/2024 [facility] Test Date: 2024-05-20 Pat Name: AZALIA NERI Department: 85 Room: Gender: Female Disc Jockey: : 2005 Requested By: NIKA FITZGERALD Order Number: [id number] Reading MD: Buddy Allen Measurements Intervals Otto Rate: 70 P: 53 TX: 182 QRS: 47 QRSD: 96 T: 33 QT: 363 QTc: 392 Interpretive Statements SINUS RHYTHM Compared to ECG 10/19/2019 11:32:52 No significant changes us Nika WOOD-TIP ECG ORDERABLES Final Re sult [facility] documented in this encounter Visit Diagnoses Diagnosis Routine sports physical exam- Primary Other general medical examination for administrative purposes Family history of sudden Family history of other condition Routine sports physical exam Other general medical examination for administrative purposes Family history of sudden Family history of other condition documented in this encounter Additional Health Concerns Assessment Noted Time PHQ-9 Depression Total Score: 0 10/28/19 24 4:50 PM [facility] documented as of this encounter Care Teams Piece Hand Relationship Specialty Start Date End Date Nika Fitzgerald FNP-BC [address] [facility], [address] [place] [address] PCP - General Nurse Practitioner Family 10/28/23 documented as of this encounter
--- OUTSIDE RECORDS SUMMARY | 2024-10-25 16:37 | XMS_ITS | Referral Summary ---
Author Organization [facility] Address [address] [place] [address] Care Team Providers Care Park Activities Coordinator Name Role Phone Samina Bui MD Unavailable Tian Jenkins MD Primary Care Provider [phone] Source Comments [facility],non-owned Affiliates and Associated Physician Practices is amultiple site organization consisting of ambulatory clinics and hospital sitesin [place], [place], [place] and [place]. This disclosure is being madepursuant to the Care Everywhere program and may not contain all information available regarding this patient. Last updated 18.[facility] [employer] Allergies No known active allergies Medications * Be aware that medications may not be up to date on this document. Alwaysverify current medications with the patient. Medication Sig Dispensed Refills Start Date End Date Status cetirizine (ZYRTEC) 5 MG/5ML syrup Take 2.5 mg by mouth daily. Active Immunizations Name Administration Dates Next Due DTaP VACCINE IM (6wk-6yrs) 06/22/2006,06/14/2005 ,04/19/2005,02/22/2005 HEP A PEDS 2 DOSE 03/20/2007,06/22/2006 HEP B VACCINE, PED/ADOL 09/06/2005,01/17/2005, HIB BOOSTER 06/22/2006,06/14/2005,04/19/2005 ,02/22/2005 INFLUENZA 08/06/2008,08/01/2006,09/06/2005 ,08/01/2005 MMR 01/28/2006 PNEUMOCOCCAL CONJ, PEDS 01/28/2006,06/14/2005,,02/22/2005 POLIO IPV 01/28/2006,04/19/2005,2004 VARICELLA 01/28/2006 Social History Tobacco Use Types Packs/Day Years [...] - - Body Mass Index - - Plan of Treatment Not on file Care Teams Park Activities Coordinator Relationship Specialty Start Date End Date Samina Bui MD PCP - Pediatrics 08/25/09 Tian Jenkins MD [address] [place] [address] PCP - General 07/08/10
--- OUTSIDE RECORDS SUMMARY | 2024-10-25 16:37 | XMS_ITS | Encounter Summary ---
Author Organization [facility] Address [address] [place] [address] Care Team Providers Care Tech Brazer Tester Name Role Phone Samina Bui MD Unavailable Tian Jenkins MD Primary Care Provider [phone] Encounter Details Date Type Department Care Team (Late st Contact Info) Description 07/08/2010 6:34 PM CDT - 07/08/2010 6:35 PM CDT Hospital Encounter Emergency Med icine Discharge Disposition: Home or Self Care Social History Tobacco Use Types Packs/Day Years Used Date Smoking Tobacco: Never Assessed Sex and Gender Information Value Date Recorded Sex Assigned at Not on file Gender Identity Not on file Sexual Orientation Not on file documented as of this encounter Medications at Time of Discharge Medication Sig Dispensed Refills Start Date End Date cetirizine (ZYRTEC) 5 MG/5ML syrup Take 2.5 mg by mouth daily. documented as of this encounter Miscellaneous Notes * Miscellaneous Scans - Document, Scanned - 08/15/2010 5:40 PM CDT documented in this encounter Plan of Treatment Not on file documented as of this encounter Visit Diagnoses Not on filedocumented in this encounter Care Teams Tech Brazer Tester Relationship Specialty Start Date End Date Samina Bui MD PCP - Pediatrics 08/25/09 Tian Jenkins MD [address] [place] [address] PCP - General 07/08/10 documented as of this encounter
--- OUTSIDE RECORDS SUMMARY | 2024-10-25 16:37 | XMS_ITS | Encounter Summary ---
Author Organization [facility] Address [facility] [facility] [place] [address] [place] [address] Care Team Providers Care Piano Bench Assembler Name Role Phone Monet SilverP- Primary Care Provider + Encounter Details Date Type Department Care Team (Latest Contact Info) Description 05/20/2024 Travel Social History Tobacco Use Types Packs/Day [...] Total Score: 0 10/28/19 24 4:50 PM FILM EDITOR SUPERVISOR documented as of this encounter Care Teams Piano Bench Assembler Relationship Specialty Start Date End Date Monet Silver FNP-BC [address], [address] [place] [address] PCP - General Nurse Practitioner Family 10/28/23 documented as of this encounter
--- OUTSIDE RECORDS SUMMARY | 2024-10-25 16:37 | XMS_ITS | Clinical Summary ---
Author Organization [facility] Address [address] [facility] [place] [address] Care Team Providers Care Wood Milling Machine Operator Name Role Phone Samina Bui MD Unavailable Tian Jenkins MD Primary Care Provider [phone] Source Comments [facility],non-owned Affiliates and Associated Physician Practices is amultiple site organization consisting of ambulatory clinics and hospital sitesin [place], [place], [place] and [place]. This disclosure is being madepursuant to the Care Everywhere program and may not contain all information available regarding this patient. Last updated 18.[facility] [employer] Allergies No known active allergies Medications * [...] Mass Index - - Plan of Treatment Health Maintenance Due Date Last Done Comments DTAP/TDAP/TD VACCINES (5 - Tdap) 12/20/2015 06/22/2006, 06/14/2005, 04/19/2005, Additional history exists HIV SCREENING 12/20/2019 HPV VACCINE (1 - 3-dose series) 12/20/2019 CHLAMYDIA/GONORRHEA SCREENING 2020 HEPATITIS C SCREENING 12/15/2022 DEPRESSION SCREENING 10/21/2023 COVID-19 VACCINE ( season) 2024 INFLUENZA VACCINE (#1) 2024 8, 08/01/2006, 09/06/2005, Additional history exists ZOSTER VACCINE (1 of 2) 2054 HEPATITIS B VACCINE Completed 09/06/2005, 01/17/2005, 2004 PNEUMOCOCCAL VACCINE Completed 01/28/2006, 06/14/2005, 04/19/2005, Additional history exists HIB VACCINE Completed 06/22/2006, 05/22, 04/19/2005, Additional history exists MENINGOCOCCAL VACCINE Aged Out No ella radha eligible based on patient's age to complete this topic Care Teams Wood Milling Machine Operator Relationship Specialty Start Date End Date Samina Bui MD PCP - Pediatrics 08/25/09 Tian Jenkins MD [address] [place] [address] PCP - General 07/08/10
--- OUTSIDE RECORDS SUMMARY | 2024-10-25 16:37 | XMS_ITS | Encounter Summary ---
Author Organization [facility] Address [address] [place] [address]. [place] [address] [place] [address] Care Team Providers Care Extruding Press Adjuster Name Role Phone Monet SilverP- Primary Care Provider + Encounter Details Date Type Department Care Team (Latest Contact Info) Description 05/01/2024 Scan HEALTH INFO SRVCS Scanned, Doc Med [...] Total Score: 0 10/28/19 24 4:50 PM PANEL SAW OPERATOR documented as of this encounter Care Teams Extruding Press Adjuster Relationship Specialty Start Date End Date Monet Silver FNP-TIP [address], [address] [place] [address] PCP - General Nurse Practitioner Family 10/28/23 documented as of this encounter
--- OUTSIDE RECORDS SUMMARY | 2024-10-25 16:37 | XMS_ITS | Encounter Summary ---
Author Organization [facility] Address [facility] [facility] [place] [address] [place] [address] Care Team Providers Care Teacher Asst Name Role Phone Monet SilverP- Primary Care Provider + Encounter Details Date Type Department Care Team (Latest Contact Info) Description 04/30/2024 Travel Social History Tobacco Use Types Packs/Day [...] Total Score: 0 10/28/19 24 4:50 PM VP DELIVERY documented as of this encounter Care Teams Teacher Asst Relationship Specialty Start Date End Date Monet Silver FNP-BC [address], [address] [place] [address] PCP - General Nurse Practitioner Family 10/28/23 documented as of this encounter
--- OUTSIDE RECORDS SUMMARY | 2024-10-25 16:37 | XMS_ITS | Encounter Summary ---
Author Organization [facility] Address [address] [place] [address] Care Team Providers Care Nonprofit Fundraiser Name Role Phone Samina Bui MD Unavailable Tian Jenkins MD Primary Care Provider + [phone] Reason for Visit * Reason Comments Laceration pt was running, trip ped and [facility]. Incident around 1430. No LOC. No vomiting. about 1.5cm laceration. bleeding controlled. Encounter Details Date Type Department Care Team (Late st Contact Info) Description 07/08/2010 6:34 PM CDT - 07/08/2010 9:51 PM CDT Emergency ER at [address] [address] Conversion, Doctor Mila Love MD [address] [place] [address] [place] [address] Laceration of Face Discharge Disposition: Home or Self Care Social [...] - - Body Mass Index - - documented in this encounter Discharge Instructions * Discharge Instructions* Candace Mcintosh MD - 07/08/2010 9:03 PM CDT Laceration Care, Child A laceration is a cut or lesion that goes through all layers of the skin and into the tissue just beneath the skin. Your child's caregiver used either sutures, byron, wound adhesive (glue), or Steri-Strips to repair the laceration. These tools bring the skin margins together to allow for faster healing and a better cosmetic outcome. All such wounds will heal with a scar. Once the wound has healed, scarring canbe minimized by covering the wound with sunscreen during the day for one year. HOME CARE INSTRUCTIONS For Sutures or Byron: l Keep the wound clean and dry. l If your child was given a dressing, you should change it at least once a day or if it becomes wetor dirty or as instructed. l Twice a day, wash the area with soap and water and rinse with plain water to remove all soap. Pat(do not rub) dry with a clean towel. Look for signs of infection (see below). l After cleaning, apply a thin layer of the antibiotic ointment recommended by your child's caregiver. This will help prevent infection and keep the bandage from sticking. l Your child may shower as usual after the first 24 hours, but should not soak the area in water until the sutures are dissolved. l Acetaminophen (Tylenol??) or ibuprofen (Advil?? or Motrin??) may be taken as directed for relief from pain and discomfort. Seek immediate medical care IF: l There is redness, swelling, increasing pain, or pus coming from the wound. l There is a red line that goes up your child's arm or leg. l You notice a foul smell coming from the wound or dressing. l Your child develops a fever (temperature 100.4?? F (38?? C) or higher). l The wound edges reopen. l You notice something coming out of the wound such as wood or glass. l The wound is on your child's hand or foot and you find that they are unable to properly move a finger or toe. l There is severe swelling around the wound causing pain and numbness or a change in color in your child's arm, hand, leg, or foot. Document Released: 12/17/2007 Document Re-Released: 10/26/2008 ExitCare?? Patient Information ??2009 [employer]. Lacerations on the Face Cuts on the face usually heal quickly, but need special care to reduce the scarring. Keep the cut clean. Scabs and crusts can be removed by using a cotton swab moistened with clean tap water. You canalso use a warm, wet washcloth. If you allow a scab to stay on too long, it may leave a wider scar when the stitches come out. You can use an antibiotic ointment to cover the healing cut after cleaning it. The sutures in facial lacerations should usually be taken out in 4-5 days to avoid stitch landon. It will take 1-2 years for the scar to lose its redness and to heal completely. Wait a few days after your stitches are removed before applying makeup. You should protect your healing wound by using a sunscreen for the next 3-6 months to reduce the pigment that will form in the scar. SEEK IMMEDIATE MEDICAL CARE IF YOU DEVELOP: ?? Redness, pain, or swelling around the wound. ?? Pus-like drainage. ?? Chills or a fever. You may need a tetanus booster if you have not had one in the past 5 years. Check your vaccination records with your caregiver to see if you need one. Document Released: 11/14/2005 Document Re-Released: 07/24/2007 ExitCare?? Patient Information ??2009 [employer]Pin. Post Procedural Sedation, Child Your child has been given sedation today for a procedure. This was to help your child relax or evensleep through the procedure. They may remain sleepy and a little ???out of it?? for up to several hours after this procedure. A responsible adult family member or adult friend should stay with the child until the medications have worn off. Your child will need to be observed closely for the next 24 hours and should play indoors. Your child's coordination may be slightly impaired until all the medicine used today has completely worn off. Before leaving the hospital, ask questions if there is anything you do not understand. Make sure that you fully understand your child's medication and possible side effects. home care instructions 1. Do not leave your child unattended at any time in a car seat. If the child falls asleep in a carseat, make sure their head remains upright. Watch them continuously to make sure there are no breathing difficulties. 2. Never leave you child alone while they are still sleepy unless it is bedtime and the child had previously been at normal behavior before going to sleep. 3. Your child may drink fluids and eat light foods when fully awake if there is no nausea (feeling sick to their stomach) or vomiting. 4. Your child should not ride a bicycle, skate, use swing sets, climb, swim, use machines, or participate in any activity where they could become injured. Avoid these activities for at least twenty-four hours or longer until behaving and acting normally again. 5. Ask questions if you do not understand something. 6. Supervise all play or bathing for the next twenty four hours. 7. Make sure you and your family fully understands everything about the medication given your childand what side effects may occur. 8. Keep all appointments as scheduled. Follow all instructions. seek immediate medical care if: 9. Your child has recurrent vomiting. 10. Your child develops a rash. call 911 if: 11. Your child becomes difficult to awaken. 12. Your child has trouble breathing. 13. Your child does not appear normal. Document Released: 10/07/2006 Document Re-Released: 04/19/2008 [facility] Patient Information ??2009 PixelPin. * Discharge Instructions* Document, Scanned - 07/10/2010 3:11 PM CDT documented in this encounter Medications at Time of Discharge Medication Sig Dispensed Refills Start Date End Date cetirizine (ZYRTEC) 5 MG/5ML syrup Take 2.5 mg by mouth daily. documented as of this encounter ED Notes * Deandra Zhang RN - 07/08/2010 9:50 PM CDT Pt awake and alert - denies any complaints. amb with steady gait. Instructions give to parents. No questions voiced. * Deandra Zhang RN - 07/08/2010 9:25 PM CDT Previous note charted in error under Yue HINDS - charted by Deandra Mccollum RN * Yue Alva RN - 07/08/2010 9:19 PM CDT Popsicle given - pt awake and alert, denies any complaints. Mother at bedside. Awaiting discharge. * Mila Love MD - 07/08/2010 6:31 PM CDTAssociated Order(s): ED SEDATION; ED SEDATION 07/08/2010 6:31 PM Azalia Neri [id number] History Chief Complaint Patient presents with ??? Laceration pt was running, tripped and fell into corner of [facility] cabinet. Incident around 1430. No LOC. No vomiting. about 1.5cm laceration. bleeding controlled. Laceration The incident occurred 3 to 5 hours ago. The laceration is located on the face.The laceration is 2 cm in size. The depth of the laceration is through muscle.The quality of the laceration is: straight.The pain has been improving since onset. She reports no foreign bodies present. Her tetanus status is UTD. Past Medical History Diagnosis Date ??? Routine Infant or Child Health Check 08/02/08 ??? Acute Upper Respiratory Infections of Unspecified Site 09/26/07, 12/16/07 02/20/08 ??? UNSPECIFIED OTITIS MEDIA 12/16/07 ??? Unspecified Otalgia 12/29/07 ??? Acute Pharyngitis 04/13/08 ??? Unspecified Esotropia 04/13/08 ??? Streptococcal Sore Throat 11/02/08 ??? Acute Sinusitis, Unspecified 01/01/09 No past surgical history on file. History Social History ??? Marital Status: Single Spouse Name: N/A Number of Children: N/A ??? Years of Education: N/A Occupational History ??? Not on file. Social History Main Topics ??? Tobacco Use: Not on file ??? Alcohol Use: Not on file ??? Drug Use: Not on file ??? Sexually Active: Not on file Other Topics Concern ??? Not on file Social History Narrative ??? No narrative on file Medications Current outpatient prescriptions Medication Sig Dispense Refill ??? cetirizine (ZYRTEC) 5 MG/5ML syrup Take 2.5 [...] to verify the correct patient, procedure, equipment, learning support specialist and site/side marked as required. ASA Class [...] to verify the correct patient, procedure, equipment, learning support specialist and site/side marked as required. ASA Class [...] have reviewed available labs and radiographic studies. ED Plan/Course: laceration repaired by ENT-see procedure note. Clinical Impression: facial laceration * Candace Mcintosh MD - 07/08/2010 6:29 PM CDT 07/08/2010 6:29 PM Azalia Neri [id number] History Chief Complaint Patient presents with ??? Laceration pt was running, tripped and fell into corner of [facility] cabinet. Incident around 1430. No LOC. No vomiting. about 1.5cm laceration. bleeding controlled. HPI Comments: Azalia Neri is a previously healthy 4 y.o. female who presents with 2 cm laceration to left side of forehead. Patient fell and hit head on glass cabinet at home today at approximately 1430. Denies LOC, vomiting, vision change. Initially presented to OSH, transferred here - parents want lac repaired by plastics. Last PO intake at 12:00pm. Past Medical History Diagnosis Date ??? Routine Infant or Child Health Check 08/02/08 ??? Acute Upper Respiratory Infections of Unspecified Site 09/26/07, 12/16/07 02/20/08 ??? UNSPECIFIED OTITIS MEDIA 12/16/07 ??? Unspecified Otalgia 12/29/07 ??? Acute Pharyngitis 04/13/08 ??? Unspecified Esotropia 04/13/08 ??? Streptococcal Sore Throat 11/02/08 ??? Acute Sinusitis, Unspecified 01/01/09 No past surgical history on file. History Social History ??? Marital Status: Single Spouse Name: N/A Number of Children: N/A ??? Years of Education: N/A Occupational History ??? Not on file. Social History Main Topics ??? Tobacco Use: Not on file ??? Alcohol Use: Not on file ??? Drug Use: Not on file ??? Sexually Active: Not on file Other Topics Concern ??? Not on file Social History Narrative ??? No narrative on file Medications Current outpatient prescriptions Medication Sig Dispense Refill ??? cetirizine (ZYRTEC) 5 MG/5ML syrup Take 2.5 mg by mouth daily. Review of Systems HENT: Negative for neck pain. Eyes: Negative for visual disturbance. Gastrointestinal: Negative for vomiting. Skin: Positive for wound. Neurological: Negative for dizziness and headaches. BP 102/72 Pulse 104 Temp 97.8 ??F Resp 22 Wt 23 kg (50 lb 11.3 oz) Physical Exam Constitutional: She appears well-developed and well-nourished. She is active and cooperative. HENT: Head: Normocephalic. Right Ear: External ear and pinna normal. Left Ear: External ear and pinna normal. Nose: Nose normal. Mouth/Throat: Mucous membranes are moist. Oropharynx is clear. 2 cm laceration above left eyebrow, muscle exposed, mild amount of swelling and bruising. Eyes: Conjunctivae and lids are normal. Neck: Full passive range of motion without pain. Cardiovascular: Normal rate, regular rhythm, S1 normal and S2 normal. Murmur heard. Systolic murmur is present with a grade of 1/6 Pulmonary/Chest: Effort normal and breath sounds normal. There is normal air entry. Abdominal: Soft. Bowel sounds are normal. She exhibits no distension. There is no organomegaly. No tenderness. Musculoskeletal: Normal range of motion. Neurological: She is alert. She has normal strength. No cranial nerve deficit or sensory deficit. Reflex Scores: Patellar reflexes are 2+ on the right side and 2+ on the left side. Skin: Skin is warm and dry. Capillary refill takes less than 3 seconds. Laceration noted. No rash noted. Psychiatric: She has a normal mood and affect. Her speech is normal and behavior is normal. Thoughtcontent normal. Procedures Procedures Conscious sedation and laceration repair. Please see ED attending and ENT resident procedure notes for details. EKG Interpretation Lab/SPO2 Interpretation Medical Decision Making Progress Notes Discussed with ENT. ENT will repair laceration. Patient has been consented for procedural sedation. 2049: Laceration sutured by ENT. Patient tolerated procedure well. See ENT resident and ED attending procedure notes for details. ED Plan/Course Will discharge patient when sedation wears off. Patient tolerated lac repair and sedation well. Clinical Impression Head laceration Candace Mcintosh MD 07/09/2010 1:51 AM * Karen Murphy RN - 07/08/2010 5:19 PM CDT Nurse report--L eyebrow gaping laceration--2 cm, npo., coming by car. documented in this encounter Miscellaneous Notes * Miscellaneous Scans - Document, Scanned - 07/14/2010 4:03 PM CDT * Miscellaneous Scans - Document, Scanned - 07/10/2010 12:25 PM CDT * Miscellaneous Scans - Document, Scanned - 07/10/2010 10:41 AM CDT * Miscellaneous Scans - Document, Scanned - 07/10/2010 10:36 AM CDT documented in this encounter Plan of Treatment Not on file documented as of this encounter Procedures Procedure Name Priority Date/Time Associated Diagnosis Comments ED SEDATION Routine 07/08/2010 10:32 PM CDT ED SEDATION Routine 07/08/2010 10:32 PM CDT documented in this encounter Results * ED SEDATION (07/08/2010 10:32 PM CDT) Narrative 07/08/2010 10:32 PM CDT 07/08/2010 ?6:31 PM Azalia Neri [id number] History Chief Complaint Patient presents with ? ? Laceration ??pt was running, tripped and fell into corner of [email or web address] cabinet. ?? Incident around 1430. ??No LOC. [...] to verify the correct patient, procedure, equipment, learning support specialist and site/side marked as required. ASA Class [...] to verify the correct patient, procedure, equipment, learning support specialist and site/side marked as required. ASA Class [...] PM CDT 07/08/2010 6:31 PM Azalia Neri [id number] History Chief Complaint Patient presents with ? ? Laceration pt was running, tripped and fell into corner of [facility] cabinet. Incidentaround 1430. No LOC. No vomiting. [...] called to verifythe correct patient, procedure, equipment, learning support specialist and site/sidemarked as required. ASA Class I-No [...] called to verifythe correct patient, procedure, equipment, learning support specialist and site/sidemarked as required. ASA Class I-No [...] PM CDT 07/08/2010 ?6:31 PM Azalia Neri [id number] History Chief Complaint Patient presents with ? ? Laceration ??pt was running, tripped and fell into corner of [email or web address] cabinet. ?? Incident around 1430. ??No LOC. [...] to verify the correct patient, procedure, equipment, learning support specialist and site/side marked as required. ASA Class [...] to verify the correct patient, procedure, equipment, learning support specialist and site/side marked as required. ASA Class [...] PM CDT 07/08/2010 6:31 PM Azalia Neri [id number] History Chief Complaint Patient presents with ? ? Laceration pt was running, tripped and fell into corner of [facility]. Incidentaround 1430. No LOC. No vomiting. [...] called to verifythe correct patient, procedure, equipment, learning support specialist and site/sidemarked as required. ASA Class I-No [...] called to verifythe correct patient, procedure, equipment, learning support specialist and site/sidemarked as required. ASA Class I-No [...] Mila Love MD PROCEDURE/MINOR SURG ICAL ORDERABLES documented in this encounter Visit Diagnoses Diagnosis Laceration of face Open wound of face, unspecified site, without mention of complication documented in this encounter Administered Medications Inactive Administered Medications - up to 3 most recent administrations Medication Order MAR Action Action Date Dose Rate Site acetaminophen (TYLENOL) solution 340 mg 340 mg (14.8 mg/kg), Oral, ONCE, 1 dose, On 07/08/10 at 1815, Do not exceed 90 mg/kg/day or 4 g/day whichever is less $ Given 07/08/2010 6:12 PM CDT 340 mg ketamine (KETALAR) injection 25 mg 25 mg (1.09 mg/kg), Intravenous, PRN, Sedation, 4 doses, Starting on 07/08/10 at 1858, Until 07/09/10 at 0951, High Risk, High Alert Medication: Must document double check on IV MAR flowsheet. $ Given 07/08/2010 8:25 PM CDT 50 mg krmxmdund-bgugtdphbbr-gyipnzlwlh (LET) solution 3 mL 3 mL (0.13 mL/kg), Topical, ONCE, 1 dose, On 07/08/10 at 1815 $ Given 07/08/2010 6:08 PM CDT 3 mL documented in this encounter Active and Recently Administered Medications Times are shown in CDT. Scheduled Medication Order 07/06/2010 07/07/2010 07/08/2010 acetaminophen (TYLENOL) solution 340 mg (COMPLETED) 340 mg (14.8 mg/kg), Oral, ONCE, 1 dose, On 07/08/10 at 1815, Do not exceed 90 mg/kg/day or 4 g/day whichever is less 1812 ($ Given - Prov ider: Ashlee Cruz) bhtjgpmxm-uaweqwzovsv-xruvsnlkgv (LET) solution 3 mL (COMPLETED) 3 mL (0.13 mL/kg), Topical, ONCE, 1 dose, On 07/08/10 at 1815 1808 ($ Given - Prov ider: Ashlee Cruz) PRN Medication Order 07/06/2010 07/07/2010 07/08/2010 ketamine (KETALAR) injection 25 mg (CANCELED) 25 mg (1.09 mg/kg), Intravenous, PRN, Sedation, 4 doses, Starting on 07/08/10 at 1858, Until 07/09/10 at 0951, High Risk, High Alert Medication: Must document double check on IV MAR flowsheet. 2024 ($ Given - Prov ider: Deandra Zhang RN) documented in this encounter Care Teams Nonprofit Fundraiser Relationship Specialty Start Date End Date Samina Bui MD PCP - Pediatrics 08/25/09 Tian Jenkins MD [address] [place] [address] PCP - General 07/08/10 documented as of this encounter
--- OUTSIDE RECORDS SUMMARY | 2024-10-25 16:37 | XMS_ITS | Encounter Summary ---
Author Organization [facility] Address [address] [place] [address]. [place] [address] [place] [address] Care Team Providers Care Environmental Communications Specialist Name Role Phone Monet SilverP- Primary Care Provider + Encounter Details Date Type Department Care Team (Latest Contact Info) Description 04/29/2024 Scan HEALTH INFO SRVCS Scanned, Doc Med [...] Total Score: 0 10/28/19 24 4:50 PM ORGANIC SEARCH LEAD documented as of this encounter Care Teams Environmental Communications Specialist Relationship Specialty Start Date End Date Monet Silver FNP-TIP [address], [address] [place] [id number] PCP - General Nurse Practitioner Family 10/28/23 documented as of this encounter
--- OUTSIDE RECORDS SUMMARY | 2024-10-25 16:37 | XMS_ITS | Encounter Summary ---
Author Organization [facility] Address [address] [place] [address]. [place] [address] [place] [address] Care Team Providers Care Passenger Service Supervisor Name Role Phone Monet Silver [facility] Primary Care Provider + Encounter Details Date Type Department Care Team (Late st Contact Info) Description 05/25/2024 OluKai Message Enc [facility] Family & Internal Medicine [facility] [address] [place] [address] Britany, [facility] Provider Sports Physical Social History Tobacco Use Types Packs/Day Years [...] Total Score: 0 10/28/19 24 4:50 PM POOL LIFEGUARD documented as of this encounter Care Teams Passenger Service Supervisor Relationship Specialty Start Date End Date Monet Silver, [facility]- [address], [address] [place] [address] PCP - General Nurse Practitioner Family 10/28/23 documented as of this encounter
--- OUTSIDE RECORDS SUMMARY | 2024-10-25 16:37 | XMS_ITS | Encounter Summary ---
Author Organization [facility] Address [facility] [place] [place] [address] [place] [address] Care Team Providers Care City Editor Name Role Phone Nika Fitzgerald [facility] Primary Care Provider + Encounter Details Date Type Department Care Team (Latest Contact Info) Description 05/20/2024 12:07 PM CDT - 05/20/2024 11:59 PM CDT Hospital Encounter [facility] Cardiopulmonary Services [address] [place], [place] [id number] Nika Fitzgerald, [facility] [address], [address] [place] [address] Discharge Disposition: Home or Self Care (Routine Discharge) Social History Tobacco Use Types Packs/Day Years [...] this encounter Medications at Time of Discharge busPIRone (BUSPAR) 15 MG tabletIndications:S ituational anxiety TAKE 1 TABLET(15 MG) BY MOUTH TWICE DAILY 90 tablet 05/31/2023 drospirenone-ethiny l estradiol (KISHOR) 3-0.02 MG tabletIndications:E ncounter for initial prescription of contraceptive pills Take 1 tablet by mouth daily. 84 tablet 04/17/2024 hydrOXYzine (ATARAX) 10 MG tabletIndications:A nxiety Take 1 tablet (10 mg total) by mouth 3 (three) times daily as needed for Itching. 30 tablet 5 05/19/2024 documented as of this encounter Plan of Treatment Not on file documented as of this encounter Procedures Procedure Name Priority Date/Time Associated Diagnosis Comments ECG 12-LEAD Routine 05/20/2024 11:13 AM CDT Routine sports physical exam Family history of sudden documented in this encounter Results * ECG 12 lead (05/20/2024 11:13 AM CDT) 05/20/2024 11:1 3 AM CDT Narrative [facility] ([facility]) RAD - 05/22/2024 5:15 PM CDT ?[facility] ? Test Date: ?2024-05-20 Pat Name: ? AZALIA NERI ?Department: ?? 85 ? Room: ? Gender: ? Female ? Jumpbasting Facing Baster: ?? : ?2005 ? Requested By: NIKA FITZGERALD Order Number: [id number] ? Reading : ?? Buddy Allen ? Measurements Intervals ?[place] ? Rate: ? 70 ? P: ?53 NV: ? 182 ?QRS: ?47 QRSD: ? 96 ? T: ?33 QT: ? 363 ? QTc: ?392 ? Interpretive Statements SINUS RHYTHM Compared to ECG 10/19/2019 11:32:52 No significant changes Procedure Note Buddy Allen MD - 05/22/2024 [facility] Test Date: 2024-05-20 Pat Name: AZALIA NERI Department: 85 Room: Gender: Female Jumpbasting Facing Baster: : 2005 Requested By: NIKA FITZGERALD Order Number: [id number] Reading MD: Buddy Allen Measurements Intervals [place] Rate: 70 P: 53 NV: 182 QRS: 47 QRSD: 96 T: 33 QT: 363 QTc: 392 Interpretive Statements SINUS RHYTHM Compared to ECG 10/19/2019 11:32:52 No significant changes us Nika WOOD-TIP ECG ORDERABLES Final Re sult [facility] RAD documented in this encounter Visit Diagnoses Diagnosis Routine sports physical exam Other general medical examination for administrative purposes Family history of sudden Family history of other condition documented in this encounter Additional Health Concerns Assessment Noted Time PHQ-9 Depression Total Score: 0 10/28/19 24 4:50 PM FREIGHT FLAGMAN documented as of this encounter Care Teams City Editor Relationship Specialty Start Date End Date Nika Fitzgerald FNP-BC [address] [facility] [address] [address] [place] [address] PCP - General Nurse Practitioner Family 10/28/23 documented as of this encounter
--- OUTSIDE RECORDS SUMMARY | 2024-10-25 16:38 | XMS_ITS | Encounter Summary ---
Author Organization [facility] Address [facility] [place] [address] [place] [address] Care Team Providers Care Entry Analyst Name Role Phone Monet SilverP- Primary Care Provider + Encounter Details Date Type Department Care Team (Latest Contact Info) Description 01/10/2024 Travel Social History Tobacco Use Types Packs/Day [...] Total Score: 0 10/28/19 24 4:50 PM REFINER OPERATOR documented as of this encounter Care Teams Entry Analyst Relationship Specialty Start Date End Date Monet Silver FNP-BC [address], [address] [place] [address] PCP - General Nurse Practitioner Family 10/28/23 documented as of this encounter
--- OUTSIDE RECORDS SUMMARY | 2024-10-25 16:38 | XMS_ITS | Encounter Summary ---
Author Organization [facility] Address [facility] [place] [address] [place] [address] Care Team Providers Care Programmer Analyst Name Role Phone Monet SilverP- Primary Care Provider + Encounter Details Date Type Department Care Team (Latest Contact Info) Description 10/28/2023 Travel Social History Tobacco Use Types Packs/Day [...] Total Score: 0 10/28/19 24 4:50 PM MECHANICAL MAINTENANCE documented as of this encounter Care Teams Programmer Analyst Relationship Specialty Start Date End Date Monet Silver FNP-BC [address], [address] [place] [address] PCP - General Nurse Practitioner Family 10/28/23 documented as of this encounter
--- OUTSIDE RECORDS SUMMARY | 2024-10-25 16:38 | XMS_ITS | Encounter Summary ---
Author Organization [facility] Address [facility] [place] [address] [place] [address] Care Team Providers Care Business Coordinator Name Role Phone Christina Reid Primary Care Provider Encounter Details Date Type Department Care Team (Latest Contact Info) Description 10/23/2022 9:25 AM SECURITY SITE SUPERVISOR - 10/23/2022 11:59 PM [facility] Hospital Encounter [facility] [address] [place], [place] [id number] [place] [address] [place], [place] [id number] Discharge Disposition: Home or Self Care (Routine [...] Date Recorded Patient Health Questionnaire-2 Score 0 10/23/2022 Comments No Sex and Gender Information Value Date Recorded Sex Assigned at Not on file Legal Sex Female 6:09 PM CDT Gender Identity Not on file Sexual Orientation Not on file COVID-19 Exposure Response Date Recorded In the last 10 days, have yanick segura been in contact with someone who was confirmed or suspected to have Coronavirus/COVID-19? No / Unsure 10/23/2022 8:40 AM SECURITY SITE SUPERVISOR documented as of this encounter Medications at Time of Discharge busPIRone (BUSPAR) 15 MG tabletIndication s:Situational anxiety Take 1 tablet (15 mg total) by mouth 2 (two) times daily. 90 tablet 10/23/2022 3 PENICILLIN G SODIUM IJ Taking for tooth extraction 3 documented as of this encounter Plan of Treatment Not on file documented as of this encounter Procedures Procedure Name Priority Date/Time Associated Diagnosis Comments TSH W/REFLEX Routine 10/23/2022 9:49 AM SECURITY SITE SUPERVISOR Routine general medical examination at a [facility] care facility COMPREHENSIVE METABOLIC PANEL Routine 10/23/2022 9:49 AM SECURITY SITE SUPERVISOR Routine general medical examination at a [facility] care facility LIPID PANEL Routine 10/23/2022 9:49 AM SECURITY SITE SUPERVISOR Routine general medical examination at a [facility] care facility CBC W/DIFF AUTOMATED Routine 10/23/2022 9:49 AM SECURITY SITE SUPERVISOR Routine general medical examination at [facility] facility documented in this encounter Results * LIPID PANEL (10/23/2022 9:49 AM SECURITY SITE SUPERVISOR) CHOLESTEROL 107 <200.0 MG/DL 10/23/2022 10:58 AM SECURITY SITE SUPERVISOR [facility] TRIGLYCERIDES 49 <150 MG/DL 10/23/2022 10:58 AM SECURITY SITE SUPERVISOR [facility] HDL 45 >40.0 MG/DL 10/23/2022 10:58 AM [facility] LDL (CALCULATED) 52 <100 MG/DL 10/23/19 10:58 AM [facility] NON HDL CHOLESTEROL 62 <130 MG/DL 10/23 10:58 AM [facility] CHOL/HDL RATIO 2.4 0.0 - 4.5 10/23/2022 10:58 AM [facility] VLDL CALCULATION 10 5 - 55 MG/DL 10/23/2022 10:58 AM [facility] LIPID INTERPRETATION 10/23/2022 10:58 AM [facility] Comment: NIH CONCENSUS REPORT RECOMMENDATIONS: ?ADULT ?CHILD ??LOW RISK: ?CHOLESTEROL ? <200 ? <170 ?TRIGLYCERIDE ?<150 ?--- ?HDL ? >=60 ?--- ?LDL ? <100 ? <110 ??BORDERLINE: ?CHOLESTEROL ? 200-239 ?? 170-199 ?TRIGLYCERIDE ?150-199 ? --- ?HDL ?40-59 ?--- ?LDL ? 100-159 ?? 110-129 ??HIGH RISK: ?CHOLESTEROL ? >=240 ?>=200 ?TRIGLYCERIDE ?>=200 ? --- ?HDL ?<40 ?--- ?LDL ? >=160 ?>=130 10/23/2022 9:49 AM SECURITY SITE SUPERVISOR [facility] Final Result [facility] [address] [place] [address], * (ABNORMAL) COMPREHENSIVE METABOLIC PANEL (10/23/2022 9:49 AM SECURITY SITE SUPERVISOR) Pathologist [facility] GLUCOSE 91 70 - 99 MG/DL 10/23/2022 10:58 AM [facility] BUN 10 7 - 18 MG/DL 10/23/2022 10:58 AM [facility] CREATININE S/P/B 0.68 0.55 - 1.02 MG/DL 10/23/2022 10:58 AM [facility] SODIUM S/P/B 140 136 - 145 MMOL/L 10/23/2022 10:58 AM [facility] POTASSIUM S/P/B 4.1 3.5 - 5.1 MMOL/L 10/23/2022 10:58 AM [facility] CHLORIDE S/P/B 103 100 - 108 MMOL/L 10/23/2022 10:58 AM [facility] CO2 26.6 21 - 32 MMOL/L 10/23/2022 10:58 AM [facility] CALCIUM S/P/B 9.0 8.5 - 10.1 MG/DL 10/23/2022 10:58 AM [facility] BILIRUBIN TOTAL S/P/B 0.7 0.2 - 1.1 MG/DL 10/23/2022 10:58 AM [facility] TOTAL PROTEIN S/P/B 7.7 6.4 - 8.2 G/DL 10/23/2022 10:58 AM [facility] ALBUMIN S/P/B 4.1 3.4 - 5.0 G/DL 10/23/2022 10:58 AM [facility] AST 14(L) 15 - 37 U/L 10/23/2022 10:58 AM [facility] ALT 8(L) 14 - 55 U/L 10/23/2022 10:58 AM [facility] ALKALINE PHOSPHATASE S/P/B 48(L) 50 - 136 U/L 10/23/2022 10:58 AM [facility] ANION GAP 10.4 5 - 15 MMOL/L 10/23/2022 10:58 AM [facility] BUN CREATININE RATIO 14.7 6 - 26 10/23/2022 10:58 AM [facility] A/G RATIO 1.1 1.0 - 2.0 RATIO 10/23/2022 10:58 AM [facility] GFR ESTIMATE NOT CALCULATED ML/MIN/1. 73 M2 10/23/2022 10:58 AM [facility] Comment: NOTE: eGFR is not calculated for patients <18 years of age. This is an estimated GFR calculation using the new CKD EPI creatinine equation without race and so does not require a correction factor for race. This estimated GFR should not be used for calculating drug doses. 10/23/2022 9:49 AM SECURITY SITE SUPERVISOR us Christina [facility] Final Result [facility] [address] [place] [address], * TSH W/REFLEX (10/23/2022 9:49 AM SECURITY SITE SUPERVISOR) TSH 1.213 0.358 - 3.74 uIU/ML 10/23/2022 10:58 AM [facility] Comment: HIGH DOSES OF BIOTIN MAY INTERFERE WITH THIS TEST RESULT. CORRELATION TO CLINICAL HISTORY AND PRESENTATION RECOMMENDED. FREE T4 NOT INDICATED 10/23/2022 9:49 AM SECURITY SITE SUPERVISOR Christina [facility] Final Result [facility] [address] [place] [address], * (ABNORMAL) CBC W/DIFF AUTOMATED (10/23/2022 9:49 AM SECURITY SITE SUPERVISOR) WBC 5.23 4.2 - 9.4 x10'3/uL 10/23/2022 10:33 AM [facility] RBC 4.51 3.90 - 4.96 x10'6/uL 10/23/2022 10:33 AM [facility] HGB 13.1 10.8 - 13.3 G/DL 10/23/2022 10:33 AM [facility] HCT 40.0(H) 32.4 - 39.5 % 10/23/2022 10:33 AM [facility] MCV 88.7 76.9 - 90.6 FL 10/23/2022 10:33 AM [facility] MCH 29.0 24.8 - 29.5 PG 10/23/2022 10:33 AM [facility] MCHC 32.8 31.8 - 34.6 G/DL 10/23/2022 10:33 AM [facility] RDW 12.6 12.4 - 14.9 % 10/23/2022 10:33 AM [facility] PLT 213 189 - 394 x10'3/uL 10/23/2022 10:33 AM [facility] MPV 11.3 9.6 - 11.7 FL 10/23/2022 10:33 AM [facility] RBC MORPHOLOGY NORMAL 10/23/2022 10:33 AM [facility] PLT MORPH. NORMAL 10/23/2022 10:33 AM [facility] WBC MORPHOLOGY NORMAL 10/23/2022 10:33 AM [facility] LYMPHOCYTES % 35.2 15.8 - 45.0 % 10/23/2022 10:33 AM [facility] NEUTROPHILS % 53.5 42.1 - 71.9 % 10/23/2022 10:33 AM [facility] MONOCYTES % 7.8 5.7 - 12.5 % 10/23/2022 10:33 AM [facility] EOSINOPHILS 2.5 0.0 - 5.6 % 10/23/2022 10:33 AM [facility] BASOPHILS 0.6 0.0 - 1.3 % 10/23/2022 10:33 AM [facility] ABS. NEUTROPHILS 2.80 1.40 - 6.00 x10'3/uL 10/23/2022 10:33 AM [facility] IMMATURE GRANS % 0.4 0.0 - 0.5 % 10/23/2022 10:33 AM [facility] ABS. LYMPHOCYTES 1.84 0.80 - 4.70 x10'3/uL 10/23/2022 10:33 AM [facility] 10/23/2022 9:49 AM SECURITY SITE SUPERVISOR Christina [facility] Final Result [facility] [address] [place] [address], documented in this encounter Visit Diagnoses Diagnosis Routine general medical examination at a health care facility documented in this encounter Additional Health Concerns Assessment Noted Time PHQ-9 Depression Total Score: 0 12/13/19 22 3:57 PM SECURITY SITE SUPERVISOR documented as of this encounter Care Teams Business Coordinator Relationship Specialty [place] [address] [place] [address] PCP - General PHYSICIAN PLASTIC CUTTER 12/29/19 10/27/23 documented as of this encounter
--- OUTSIDE RECORDS SUMMARY | 2024-10-25 16:38 | XMS_ITS | Encounter Summary ---
Author Organization [facility] Address [address] [place] [address]. [place] [address] [place] [address] Care Team Providers Care Emd Special Education Teacher Name Role Phone Adrianne Monet Mccollum [facility] Primary Care Provider + Reason for Visit * Reason Onset Date Comments Schedule Test 11/11/2023 48hr monitor Encounter Details Date Type Department Care Team (Late st Contact Info) Description 11/11/2023 Telephone [facility] [address] [address] Kierra العلي RMA Schedule Test (48hr monitor) Social History Tobacco Use Types Packs/Day Years [...] on file documented as of this encounter Progress Notes * ELENI Wilburn - 11/11/2023 11:58 AM CST Left message to schedule 48hr monitor per Monet Silver NP ODYNAMICS PROFESSOR documented in this encounter Plan of Treatment Not on file documented as of this encounter Visit Diagnoses Not on filedocumented in this encounter Additional Health Concerns Assessment Noted Time PHQ-9 Depression Total Score: 0 10/28/19 24 4:50 PM HYDRODYNAMICS PROFESSOR documented as of this encounter Care Teams Emd Special Education Teacher Relationship Specialty Start Date End Date Monet Silver, FUEL EFFICIENT AUTOMOBILE DESIGNER- [address] [facility], [address] [place] [address] PCP - General Nurse Practitioner Family 10/28/23 documented as of this encounter
--- OUTSIDE RECORDS SUMMARY | 2024-10-25 16:38 | XMS_ITS | Encounter Summary ---
Author Organization [facility] Address [address] [place] [address]. [place] [address] [place] [address] Care Team Providers Care Apprentice Architect Name Role Phone Christina Reid Primary Care Provider [phone] Encounter Details Date Type Department Care Team (Latest Contact Info) Description 10/23/2022 Travel Social History Tobacco Use Types Packs/Day [...] Recorded In the last 10 days, have yo u been in contact with someone who was confirmed or suspected to have Coronavirus/COVID-19? No / Unsure 10/23/2022 8:40 AM FISHERIES TECHNICAL OFFICER documented as of this encounter Plan of Treatment Not on file documented as of this encounter Visit Diagnoses Not on filedocumented in this encounter Additional Health Concerns Assessment Noted Time PHQ-9 Depression Total Score: 0 12/13/19 22 3:57 PM FISHERIES TECHNICAL OFFICER documented as of this encounter Care Teams Apprentice Architect Relationship Specialty [place] [address] [place] [address] PCP - General PHYSICIAN UNINDENTURED APPRENTICE 12/29/19 10/27/23 documented as of this encounter
--- OUTSIDE RECORDS SUMMARY | 2024-10-25 16:38 | XMS_ITS | Encounter Summary ---
Author Organization [facility] Address [facility] [place] [address] [place] [address] Care Team Providers Care Train Attendant Name Role Phone Monet Silver [facility] Primary Care Provider + Encounter Details Date Type Department Care Team (Late st Contact Info) Description 03/17/2024 Orders Only [facility] - [place] [address] [place] [address] Elias Boland MD [address] [place] [address] Social History Tobacco Use Types Packs/Day Years [...] documented as of this encounter Results * OXR FOOT STANDING LT 3V (03/19/2024 8:04 AM CDT) Anatomical Region Laterality Modality Foot Radiographic Lupe ging Narrative 03/19/2024 2:42 PM CDT PROCEDURE: OXR FOOT STANDING LT 3V VIEWS: 3 DATE: ??03/19/24 CLINICAL INDICATION: pain FINDINGS: Weightbearing rated rest of the left foot demonstrates lucency present within the medial sesamoid with increased sclerosis present within the fragments. ??Lateral sesamoid appears unremarkable. ??Overall alignment within the foot appears normal. ??There are no significant degenerative changes. ??Minimal soft tissue swelling is noted. IMPRESSION: Left medial sesamoid fracture us Elias Boland MD GENERAL IMAGING Final Result documented in this encounter Visit Diagnoses Diagnosis Pain of foot, unspecified laterality- Primary documented in this encounter Additional Health Concerns Assessment Noted Time PHQ-9 Depression Total Score: 0 10/28/19 4:50 PM VACUUM PLASTIC FORMING MACHINE OPERATOR documented as of this encounter Care Teams Train Attendant Relationship Specialty Start Date End Date Monet Silver, PLANT OPERATIONS ENGINEER-BC [address] [facility], [address] [place] [address] PCP - General Nurse Practitioner Family 10/28/23 documented as of this encounter
--- OUTSIDE RECORDS SUMMARY | 2024-10-25 16:38 | XMS_ITS | Encounter Summary ---
Author Organization [facility] Address [address] [place] [address]. [place] [address] [place] [address] Care Team Providers Care Manager Machine Name Role Phone Adrianne Monet Mccollum [facility] Primary Care Provider + Reason for Visit * Reason Onset Date Comments Schedule Test 11/19/2023 48hr monitor Encounter Details Date Type Department Care Team (Late st Contact Info) Description 11/19/2023 Telephone [facility] [address] [address] Kierra العلي RMA Schedule Test (48hr monitor) [...] encounter Progress Notes * ELENI Wilburn - 11/19/2023 5:16 PM CST Left message to schedule 48hr monitor per S SILAS Silver (x2) Will send letter for patient to contact our office to schedule EAST ARCHEOLOGY PROFESSOR documented in this encounter Plan of Treatment Not on file documented as of this encounter Visit Diagnoses Not on filedocumented in this encounter Additional Health Concerns Assessment Noted Time PHQ-9 Depression Total Score: 0 10/28/19 4:50 PM NEAR EAST ARCHEOLOGY PROFESSOR documented as of this encounter Care Teams Manager Machine Relationship Specialty Start Date End Date Monet Silver, TRADING MANAGER- [address] [address], [address] [place] [address] PCP - General Nurse Practitioner Family 10/28/23 documented as of this encounter
--- OUTSIDE RECORDS SUMMARY | 2024-10-25 16:38 | XMS_ITS | Encounter Summary ---
Author Organization [facility] Address [facility]6 [facility] [place] [address] [place] [address] Care Team Providers Care Or Rn Name Role Phone Monet Silver [facility] Primary Care Provider + Encounter Details Date Type Department Care Team (Late st Contact Info) Description 03/11/2024 Paydiantt Message Enc [facility] Family & Internal Medicine - [place] [address] [place] [address] Monet Silver, [facility] [address] [facility] [address] [place] [address] Foot Pain Social History Tobacco Use Types Packs/Day Years [...] as of this encounter Progress Notes * RADHA Rizzo - 03/11/2024 5:16 PM CDT I have seen her in the past, but it looks like Christina is still listed as PCP. I would recommend she be seen in the office for this to determine if further evaluation or referral is needed to podiatry. She should wear supportive shoes/tennis shoes. If her running shoes are old or worn it would be beneficial to change them. I would recommend she stop running until pain has improved. She can try OTC acetaminophen or ibuprofen for pain and soaking in epsom salts 10-20 minutes daily. * Swetha Cerda RN - 03/11/2024 2:41 PM CDT Please advise. Are you her primary provider now? documented in this encounter Plan of Treatment Not on file documented as of this encounter Visit Diagnoses Not on filedocumented in this encounter Additional Health Concerns Assessment Noted Time PHQ-9 Depression Total Score: 0 10/28/19 24 4:50 PM CAGE SUPERVISOR documented as of this encounter Care Teams Or Rn Relationship Specialty Start Date End Date Monet Silver FNP-BC [address] [facility], [address] [place] [address] PCP - General Nurse Practitioner Family 10/28/23 documented as of this encounter
--- OUTSIDE RECORDS SUMMARY | 2024-10-25 16:38 | XMS_ITS | Encounter Summary ---
Author Organization [facility] Address [facility] [place] [address] [place] [address] Care Team Providers Care Finishing Machine Operator Name Role Phone Christina Reid Primary Care Provider [phone] Reason for Visit * Reason Comments Physical Pt here for well chi ld and sports physical and meningitis shot Encounter Details Date Type Department Care Team (Late st Contact Info) Description 07/18/2022 3:00 PM CDT Office Visit [facility] Medical Group Family & Internal Medicine [facility] [address] [place] [address] [place] [id number] [place] [address] Physical (Pt here for well child and sports physical and meningitis shot) Social History Tobacco Use Types Packs/Day Years [...] on file 04/20 PHQ-2 Answer Date Recorded PHQ-2 Score - If the patient scores above 3, please move on to questions 3-9 0 12/13/2021 Comments No Sex and Gender Information Value Date Recorded Sex Assigned at Not on file Legal Sex Female 6:09 PM CDT Gender Identity Not on file Sexual Orientation Not on file COVID-19 Exposure Response Date Recorded In the last 10 days, have yo u been in contact with someone who was confirmed or suspected to have Coronavirus/COVID-19? No / Unsure 07/18/2022 2:49 PM CDT documented as of this encounter Last Filed Vital Signs Vital Sign Reading Time Taken Comments Blood Pressure 109/67 07/18/2022 2:51 PM CDT Pulse 81 07/18/2022 2:51 PM CDT Temperature 36.8 ??C (98.3 ??F) 07/18/2022 2:51 PM CD T Respiratory Rate 18 07/18/2022 2:51 PM CDT Oxygen Saturation 99% 07/18/2022 2:51 PM CDT Inhaled Oxygen Concentration - - Weight 74.8 kg (165 lb) 07/18/2022 2:51 PM CDT Height 176.5 cm (5' 9.5 ) 07/18/2022 2:51 PM CDT Body Mass Index 24.02 07/18/2022 2:51 PM CDT Body Mass Index Percentile 77.61% 07/18/2022 2:5 1 PM CDT Growth Chart: [facility] (Girls, 2- 20 Years) documented in this encounter Patient Instructions * Patient Instructions* CHAPARRITA Maria - 07/18/2022 3:00 PM CDT BMI: Body Mass Index (BMI) is a number calculated from a person's weight and height. It is used to assess if excess weight is a health risk and whether further healthcare interventions are necessary.As parents and caregivers, it is our job to teach children a healthy lifestyle. One way to encourage that is to follow the 5210 program. 5: Eat 5 servings of fruits and veggies everyday 2: Limit yourchild???s recreational screen time to less than 2 hours each day 1: Encourage at least 1 hour or more of physical activity each day 0: No sugar drinks. Encourage that your child limits his fluid intake to water and low-fat milk. For more resources: letsgo.org, choosemyplate.gov, letsmove.gov NUTRITION: Your goal for milk intake is 16 ounces (2 cups) per day. The [place] [employer] andthe [place] of [employer] recommend a daily intake of at least 600 IU of Vitamin D for everyone over age 1. This may be accomplished by offering a children???s multivitamin that offers 400-600 IU of vitamin D per serving once a day in addition to the daily milk intake. Your child should also aim for a goal of at least 1200 mg of calcium each day. Encourage calcium rich foods or a calcium supplement. DEVELOPMENT: Continue to keep an open, nonjudgmental line of communication between you and your teen regarding all those difficult topics: sex, dating, drugs, alcohol, tobacco. Be on the alert forsudden changes in mood, school performance, relationships with family/peers. PARENTING A TEENAGER: C hoose your villatoro carefully, be available to your teen, establish interactions with your teen???s friends and their parents. Let your teen know that you are available in times of trouble without judgement. Use these times for education. Do not belittle their need for peer acceptance, but help them with self- confidence and decision making. Take the time to talk to your teenager, even if their bodylanguage says they???re not interested. Show them the same respect that you expect in return: make eye contact, don???t interrupt, ask questions to elicit converstion, share your own experiences, andlisten, listen, listen. SCHOOL: This can be an extremely stressful time for a teenager. There is typ ically a great deal of pressure to start making decisions about the future. Grades are extremely important at this age. Your child may be preparing for college preparatory exams and choosing what to do beyond high school. Watch carefully for signs of stress in your teen, such as irritability, depression, and exhaustion. Extracurricular activities can be good for the resume and even boost school performance and self-confidence. Although, too many may be counterproductive. Reward the achievementsthat your teen accomplishes and help them make a plan for those areas where he/she might be struggling. WORK: About half of all high school students have some kind of a timekeeper supervisor job. Before your teen considers this, make sure that he/she is fulfilling his/her goals at home and at school. The [employer] of the [employer] suggests these guidelines: No more than 4 hours per day and 20 hours per week during the school year, No more than 8 hours per day and 40 hours per week during the summer, no working before 7 am or after 10 pm. IMMUNIZATIONS: Menactra #2 (Meningococcal vaccine groups A,C,Y, W-135). After the age of 16, your teenager should have completed all of thechildhood immunizations. Optional vaccines to consider if not already done: Flu vaccine, Hepatitis A vaccine, HPV vaccine, Meningococcal group B vaccine (Trumenba) NEXT VISIT: We recommend seeing your child every year for a healthy check up to monitor for normal physical, emotional, and social growth. Pediatricians often see children through their 18th year and sometimes longer. If you and y documented in this encounter Progress Notes * CHAPARRITA Maira - 07/18/2022 3:00 PM CDT Images from the original note were not included. _ Reason for Visit: Physical (Pt here for well child and sports physical and meningitis shot) History of Present Illness: FRANK Neri is a 16-year-old female here for well-child exam.She presents with her father. She is due for meningitis shot. She is also due for a sports physical. She has no ongoing health issues. ROS: Review of Systems Feeling well. Denies headaches, vision or hearing problems. No recent colds or flus, denies symptoms suggestive of allergies. Denies dysphagia, heartburn or indigestion. No dyspnea or chest pain on exertion. No nausea, abdominal pain, change in bowel habits, black or bloody stools. No urinary tractsymptoms. No muscle or joint aches or pains. No foot or leg edema. No numbness, tingling,or weakness. No anxiety or depressive symptoms, Sleeping well. No significant weight gain or loss. No fatigue. Medications: No outpatient medications have been marked as taking for the 07/18/22 encounter (Office Visit) with CHAPARRITA Maria. No Known Allergies Past Medical History: Diagnosis Date ??? Allergy seasonal ??? Anxiety History reviewed. No pertinent surgical history. Social History Tobacco Use ??? Smoking status: Never Smoker ??? Smokeless tobacco: Never Used Vaping Use ??? Vaping Use: Never used Substance Use Topics ??? Alcohol use: No ??? Drug use: No Family History Problem Relation Name Age of Onset ??? Diabetes Father Aren Family Status Relation Name Status ??? Mother Alive ??? Father Aren Alive Physical Exam Constitutional: Patient is oriented to person, place, and time. Patient appears well-developed and well-nourished. HENT: Right Ear: External ear normal. Left Ear: External ear normal. Head: Normocephalic. Nose: Nose normal. Mouth/Throat: Oropharynx is clear and moist. Eyes: Pupils are equal, round, and reactive to light. Neck: No JVD present. No thyromegaly present. Cardiovascular: Normal rate, regular rhythm, normal heart sounds and intact distal pulses. No murmur heard. Pulmonary/Chest: No respiratory distress. Patient has no wheezes. Patient has no rales. Patient exhibits no tenderness. Abdominal: Patient exhibits no distension and no mass. There is no tenderness. There is no rebound and no guarding. Musculoskeletal: Normal range of motion. Patient exhibits no edema, tenderness or deformity. Lymphadenopathy: Patient has no cervical adenopathy. Neurological: Patient is alert and oriented to person, place, and time. Skin: No rash noted. No erythema. Psychiatric: Patient has a normal mood and affect. The behavior is normal. Thought content normal. No flowsheet data found. Vitals: 07/18/22 1451 Patient Position: Sitting BP Location: Left arm Cuff size: Adult Regular BP: (!) 109/67 Pulse: 81 Body mass index is 24.02 kg/m??. Assessment and Plan Encounter Diagnose(s) ICD-10-CM ICD-9-CM SNOMED CT(R) 1. Need for prophylactic vaccination and inoculation against meningococcus Z23 V03.89 REQUIRES A MENINGITIS VACCINATION [[id number]] MenQuadfi (MENINGOCOCCAL CONJUGATE VAC) 2. Encounter for routine child health examination without abnormal findings Z00.129 V20.2 PATIENT ENCOUNTER STATUS See forms completed for patient's physical. Orders Placed This Encounter ??? [[id number]] MenQuadfi (MENINGOCOCCAL CONJUGATE VAC) Patient should follow annual wellness exams recommended for age and sex of patient. Items to consider but not limited included yearly annual fasting labs, colonscopy or cologuard when indicated. PSA and prostate for males. Mammogram and female exam for females, Portions of this note were dictated using [employer] speech recognition software. Occasional wrong wordor sound-alike substitutions may have occurred due to the inherent limitations of voice recognition software. Please read the chart carefully and recognize, using context, where the substitutions may have occurred. Christina Reid PA-C evaluated and Dr Buddy Allen reviewed and agrees with plan. Cosigned by Buddy Allen MD at 07/19/2022 7:03 AM CDT documented in this encounter Plan of Treatment Not on file documented as of this encounter Visit Diagnoses Diagnosis Need for prophylactic vaccination and inoculation against meningococcus- Primary Need for other specified prophylactic vaccination against single bacterial disease Encounter for routine child health examination without abnormal findings Routine infant or child health check documented in this encounter Additional Health Concerns Assessment Noted Time PHQ-9 Depression Total Score: 0 12/13/19 22 3:57 PM MACHINE UMBRELLA TIPPER documented as of this encounter Care Teams Finishing Machine Operator Relationship Specialty [place] [address] [place] [address] PCP - General PHYSICIAN COMPLIANCE CONSULTANT 12/29/19 10/27/23 documented as of this encounter
--- OUTSIDE RECORDS SUMMARY | 2024-10-25 16:38 | XMS_ITS | Encounter Summary ---
Author Organization [facility] Address [address] [place] [address]. [place] [address] [place] [address] Care Team Providers Care Sr. Manager Marketing Name Role Phone Unavailable Primary Care Provider Unavailabl e Encounter Details Date Type Department Care Team (Latest Contact Info) Description 05/09/2018 Abstract [facility] Medical Group Hedy Lyles NP Social History Tobacco Use Types Packs/Day Years Used Date Smoking Tobacco: Never Assessed Comments Unknown Sex and Gender Information Value Date Recorded Sex Assigned at Not on file Legal Sex Female 6:09 PM CDT Gender Identity Not on file Sexual Orientation Not on file documented as of this encounter Plan of Treatment Not on file documented as of this encounter Visit Diagnoses Not on filedocumented in this encounter
--- OUTSIDE RECORDS SUMMARY | 2024-10-25 16:38 | XMS_ITS | Encounter Summary ---
Author Organization [facility] Address [facility] [place] [address] [place] [address] Care Team Providers Care Brazing Machine Operator Automatic Name Role Phone Monet Silvre [facility] Primary Care Provider + Reason for Visit * Reason Comments Medication Follow up medication Encounter Details Date Type Department Care Team (Late st Contact Info) Description 04/01/2024 8:20 AM CDT Office Visit [facility] Medical Group Family & Internal Medicine [facility] [id number] [place] [address] Monet Silver, [facility] [id number] [place] [address] [address] [place] [address] Medication (Follow up medication ) Social History Tobacco Use Types Packs/Day Years [...] Sign Reading Time Taken Comments Blood Pressure 112/64 04/01/2024 8:22 AM CDT Pulse 77 04/01/2024 8:22 AM CDT Temperature 36.3 ??C (97.3 ??F) 04/01/2024 8:22 AM CD T Respiratory Rate 16 04/01/2024 8:22 AM CDT Oxygen Saturation 99% 04/01/2024 8:22 AM CDT Inhaled Oxygen Concentration - - Weight 79.4 kg (175 lb) 04/01/2024 8:22 AM CDT Height 180.3 cm (5' 11 ) 04/01/2024 8:22 AM CDT Body Mass Index 24.41 04/01/2024 8:22 AM CDT documented in this encounter Progress Notes * Monet Silver, SUPERVISOR BILLPOSTING-BC - 04/01/2024 8:20 AM CDT Reason for Visit: Medication (Follow up medication ) History of Present Illness: Azalia Neri is a healthy 18-year-old female who presents to the clinic today for follow up of contraception and anxiety. Patient reports that anxiety is well-managed with buspirone and hydroxyzine, which is taken as needed, approximately once every week. Sleep, appetite, and mood are good. No c/o palpitations, dizziness, CP, or dyspnea. Patient has yet to start control due to a recent move and anticipates beginning it in about five days when her next menses starts. She has chronic left foot pain, which does not spike unless engaging in activities like sprinting. The pain is manageable, and the patient worksout almost daily without significant issues. She has been seeing orthopedics for this. She reports occasional drowsiness from hydroxyzine but prefers it over anxiety symptoms. No driving concerns. No smoking, alcohol, marijuana, or other drug use. No concerns for sexually transmitted infections. Nonew surgeries or allergies. Current Outpatient Medications Medication Instructions busPIRone (BUSPAR) 15 MG tablet TAKE 1 TABLET(15 MG) BY MOUTH TWICE DAILY drospirenone-ethinyl estradiol (KISHOR) 3-0.02 MG tablet 1 tablet, Oral, Daily Review of patient's allergies indicates: No Known Allergies Past Medical History: Diagnosis Date Allergy seasonal Anxiety History reviewed. No pertinent surgical history. Social History Socioeconomic History Marital status: Single Tobacco Use Smoking status: Never Smokeless tobacco: Never Vaping Use Vaping status: Never Used Substance and Sexual Activity Alcohol use: No Drug use: No Sexual activity: Never Social History Narrative Lives with parents and siblings Family History Problem Relation Name Age of Onset Diabetes Father Aren Review of Systems Constitutional: Negative. Respiratory: Negative. Cardiovascular: Negative. Gastrointestinal: Negative. Musculoskeletal: Positive for arthralgias (left foot). Neurological: Negative. Psychiatric/Behavioral: The patient is nervous/anxious. All other systems reviewed and are negative. Physical exam: Filed Vitals: 04/01/24 0822 BP: 112/64 Pulse: 77 Resp: 16 Temp: 97.3 ??F (36.3 ??C) TempSrc: Temporal SpO2: 99% Weight: 79.4 kg (175 lb) Height: 1.803 m (5' 11 ) Body mass index is 24.41 kg/m??. Physical Exam Vitals reviewed. Constitutional: General: She is not in acute distress. Appearance: Normal appearance. She is normal weight. She is not ill-appearing. HENT: Head: Normocephalic. Mouth/Throat: Mouth: Mucous membranes are moist. Eyes: General: No scleral icterus. Conjunctiva/sclera: Conjunctivae normal. Cardiovascular: Rate and Rhythm: Normal rate and regular rhythm. Pulses: Normal pulses. Heart sounds: Normal heart sounds. No murmur heard. No gallop. Pulmonary: Effort: Pulmonary effort is normal. No respiratory distress. Breath sounds: Normal breath sounds. Abdominal: Palpations: Abdomen is soft. Musculoskeletal: Right lower leg: No edema. Left lower leg: No edema. Skin: General: Skin is warm and dry. Findings: No rash. Neurological: General: No focal deficit present. Mental Status: She is alert. Mental status is at baseline. Psychiatric: Mood and Affect: Mood normal. Speech: Speech normal. Speech is not rapid and pressured or tangential. Behavior: Behavior normal. Behavior is cooperative. Thought Content: Thought content normal. Judgment: Judgment normal. Assessment: Encounter Diagnose(s) ICD-10-CM SNOMED CT(R) 1. Anxiety F41.9 ANXIETY hydrOXYzine (ATARAX) 10 MG tablet 2. Left foot pain M79.672 PAIN IN LEFT FOOT Plan: Anxiety: Chronic, stable. Continue current medications: - Hydroxyzine 10 mg as needed Q8 hours and Buspirone 15 mg daily. Palpitations resolved. Start control with the next menstrual cycle and monitor for any side effects. Left foot pain: Chronic. Not requiring medication use. Follow-up with Ortho regarding foot pain andMRI results in April as scheduled. Continue supportive care. Follow-up visit in six months to check on the control and anxiety follow up. RADHA DILLON 04/01/2024 8:29 AM Be advised that voice recognition software has been used on this chart and inadvertent errors may occur. These may not represent a true interpretation of the dictation given. documented in this encounter Plan of Treatment Not on file documented as of this encounter Visit Diagnoses Diagnosis Anxiety- Primary Anxiety state, unspecified Left foot pain Pain in limb documented in this encounter Additional Health Concerns Assessment Noted Time PHQ-9 Depression Total Score: 0 10/28/19 24 4:50 PM NEWSPAPER OR PERIODICAL EDITOR documented as of this encounter Care Teams Brazing Machine Operator Automatic Relationship Specialty Start Date End Date Monet Silver FNP-BC [address], [address] [place] [address] PCP - General Nurse Practitioner Family 10/28/23 documented as of this encounter
--- OUTSIDE RECORDS SUMMARY | 2024-10-25 16:38 | XMS_ITS | Encounter Summary ---
Author Organization [facility] Address [address] [place] [address]. [place] [address] [place] [address] Care Team Providers Care Plasma Processing Technician Name Role Phone Monet Silver [facility] Primary Care Provider + Reason for Visit * Reason Onset Date Comments Schedule Test 12/04/2023 48hr hm Encounter Details Date Type Department Care Team (Late st Contact Info) Description 12/04/2023 Telephone [facility] [address] [address] Kierra العلي RMA Schedule Test (48hr hm) Social History Tobacco Use Types Packs/Day Years [...] encounter Progress Notes * ELENI Wilburn - 12/04/2023 10:55 AM CST Several attempts made to contact patient by phone and by letter with no response. At this time we will make no further attempts to reach patient and will return their care back to ordering. (48hr ) NG SUPERVISOR documented in this encounter Plan of Treatment Not on file documented as of this encounter Visit Diagnoses Not on filedocumented in this encounter Additional Health Concerns Assessment Noted Time PHQ-9 Depression Total Score: 0 10/28/19 4:50 PM SEWING SUPERVISOR documented as of this encounter Care Teams Plasma Processing Technician Relationship Specialty Start Date End Date Monet Silver, LEVI MAKER- [address], [address] [place] [address] PCP - General Nurse Practitioner Family 10/28/23 documented as of this encounter
--- OUTSIDE RECORDS SUMMARY | 2024-10-25 16:38 | XMS_ITS | Encounter Summary ---
Author Organization [facility] Address [address] [place] [address]. [place] [address] [place] [address] Care Team Providers Care Cruise Director Name Role Phone Christina Reid Primary Care Provider [phone] Encounter Details Date Type Department Care Team (Latest Contact Info) Description 12/10/2021 Travel Social History Tobacco Use Types Packs/Day Years Used Date Smoking Tobacco: Never Smokeless Tobacco: Never Alcohol Use Standard Drinks/Week Comments No 0 (1 standard drink = 0.6 oz pur e alcohol) AUDIT-C Answer Date Recorded Frequency of Alcohol Consumption Never 04/30/2019 Average Number of Drinks Not on file 019 Frequency of Binge Drinking Not on file 04/20 Comments No Sex and Gender Information Value Date Recorded Sex Assigned at Not on file Legal Sex Female 6:09 PM CDT Gender Identity Not on file Sexual Orientation Not on file COVID-19 Exposure Response Date Recorded In the last 10 days, have yo u been in contact with someone who was confirmed or suspected to have Coronavirus/COVID-19? No / Unsure 12/10/2021 8:52 AM TRUCK DRIVER HELPER documented as of this encounter Plan of Treatment Not on file documented as of this encounter Visit Diagnoses Not on filedocumented in this encounter Care Teams Cruise Director Relationship Specialty [place] [address] [place] [address] PCP - General PHYSICIAN INSURANCE COMPLIANCE ANALYST 12/29/19 10/27/23 documented as of this encounter
--- OUTSIDE RECORDS SUMMARY | 2024-10-25 16:38 | XMS_ITS | Encounter Summary ---
Author Organization [facility] Address [facility] [place] [address] [place] [address] Care Team Providers Care Risk Officer Name Role Phone Christina Reid Primary Care Provider Reason for Visit * Reason Onset Date Comments Downtime Visit 07/16/2023 Encounter Details Date Type Department Care Team (Late st Contact Info) Description 06/21/2023 9:00 AM CDT Office Visit [facility] Medical Group Family & Internal Medicine [facility] [address] [place] [address] Monet Silver, [facility]- [address] [facility], [address] [place] [address] Downtime Visit Social History Tobacco Use Types Packs/Day Years [...] Date Recorded Patient Health Questionnaire-2 Score 0 11/20/2022 Comments No Sex and Gender Information Value Date Recorded Sex Assigned at Not on file Legal Sex Female 6:09 PM CDT Gender Identity Not on file Sexual Orientation Not on file documented as of this encounter Last Filed Vital Signs Vital Sign Reading Time Taken Comments Blood Pressure 122/82 06/21/2023 12:21 PM CDT Pulse - - Temperature - - Respiratory Rate - - Oxygen Saturation - - Inhaled Oxygen Concentration - - Weight - - Height - - Body Mass Index - - documented in this encounter Progress Notes * Ella Harmon MD - 11/04/2023 10:03 AM CST Additional documentation from 06/16/23-07/02/23 may be found under the media tab. REPORT DEVELOPER * Cortney Pope RN - 06/21/2023 9:00 AM CDTAddended by: CORTNEY POPE on: 07/16/2023 12:25 PM Modules accepted: Level of Service * Cortney Pope RN - 06/21/2023 9:00 AM CDT Refer to scanned documents for care provided during this time. documented in this encounter Plan of Treatment Not on file documented as of this encounter Visit Diagnoses Diagnosis DOWNTIME VISIT- Primary documented in this encounter Additional Health Concerns Assessment Noted Time PHQ-9 Depression Total Score: 0 12/13/19 22 3:57 PM BI REPORT DEVELOPER documented as of this encounter Care Teams Risk Officer Relationship Specialty [place] [address] [place] [address] PCP - General PHYSICIAN OPEN HEARTH STOCKYARD SUPERVISOR 12/29/19 10/27/23 documented as of this encounter
--- OUTSIDE RECORDS SUMMARY | 2024-10-25 16:38 | XMS_ITS | Encounter Summary ---
Author Organization [facility] Address [facility] [place] [address] [place] [address] Care Team Providers Care Sampling Theory Teacher Name Role Phone Unavailable Primary Care Provider Unavailabl e Reason for Visit * Reason Comments URI/ENT Symptoms Sore throat, headach es, chest congestion, productive cough. Symptoms for almost a week. Has been taking dayquil with some relief Encounter Details Date Type Department Care Team (Late st Contact Info) Description 11/23/2019 3:20 PM ELECTRIC BLASTING CAP ASSEMBLER Office Visit [facility] Family & Internal Medicine [facility] [address] [place] [address] [place] [address] [place] [address] URI/ENT Symptoms (Sore throat, headaches, chest congestion, productive cough. Symptoms for almost a week. Has been taking dayquil with some relief) Social History Tobacco Use Types Packs/Day Years [...] Sign Reading Time Taken Comments Blood Pressure 102/66 11/23/2019 3:34 PM ELECTRIC BLASTING CAP ASSEMBLER Pulse 77 11/23/2019 3:34 PM ELECTRIC BLASTING CAP ASSEMBLER Temperature 36.7 ??C (98.1 ??F) 11/23/2019 3:34 PM CS T Respiratory Rate 18 11/23/2019 3:34 PM ELECTRIC BLASTING CAP ASSEMBLER Oxygen Saturation 98% 11/23/2019 3:34 PM ELECTRIC BLASTING CAP ASSEMBLER Inhaled Oxygen Concentration - - Weight 73.9 kg (163 lb) 11/23/2019 3:34 PM ELECTRIC BLASTING CAP ASSEMBLER Height 176.5 cm (5' 9.5 ) 11/23/2019 3:34 PM ELECTRIC BLASTING CAP ASSEMBLER Body Mass Index 23.73 11/23/2019 3:34 PM ELECTRIC BLASTING CAP ASSEMBLER Body Mass Index Percentile 83.91% 11/23/2019 3:3 4 PM ELECTRIC BLASTING CAP ASSEMBLER Growth [facility] (Girls, 2- 20 Years) documented in this encounter Patient Instructions * Patient Instructions* CHAPARRITA Maria - 11/23/2019 3:20 PM ELECTRIC BLASTING CAP ASSEMBLER Images from the original note were not included. Patient Education Patient Education Sinus Headache Discharge Instructions About this topic A sinus headache is caused by infected sinuses. Sinuses are small air spaces in the head behind thenose, eyes, and cheeks. They lead into the nose. They allow fluid, called mucus, to drain. They canswell due to an allergy or an infection. When they swell, fluid gets trapped and it can get infected. This causes pressure in your head. If the pressure is very bad you will feel pain. If you move suddenly or lean forward the pain often gets worse. The pain is dull and throbs. You may feel it in the top of your face. You may also ache and have a yellow-green drainage from your nose. Your doctor may order drugs to stop the infection and to help with swelling. What care is needed at home? ?? Ask your doctor what you need to do when you go home. Make sure you ask questions if you do not understand what the doctor says. This way you will know what you need to do. ?? Use a salt water or saline rinse in your nose. Talk to your doctor about how often you should dothis. ?? Hold a warm cloth to your sinuses for a few minutes. Then, hold a cold cloth to your sinuses for30 seconds. Repeat a few times a day. ?? Take a hot bath or shower. Breathe in steam from a bowl of hot water or hot shower. This moist air can help the headache. ?? Drink 6 to 8 glasses of water each day. ?? Avoid beer, wine, and mixed drinks (alcohol). This can make the nose and sinuses swell. ?? Do not smoke and avoid areas where people smoke. What follow-up care is needed? Your doctor may ask you to make visits to the office to check on your progress. Be sure to keep these visits. What drugs may be needed? The doctor may order drugs to: ?? Relieve headache ?? Help with pain and swelling ?? Treat an allergy ?? Moisten your nose ?? Stop an infection Will physical activity be limited? You may be more comfortable if you do not lean forward or lie down. Try to sleep with your head andshoulders propped on a few pillows. Talk to your doctor about the right amount of activity for you. What can be done to prevent this health problem? ?? Avoid fumes, smoke, dust, and other allergens. These can bring on your headache. ?? Look for treatment if you have a cold or an infection. This can keep you from getting sinusitis. When do I need to call the doctor? ?? Signs of infection. These include a fever of 100.4??F (38??C) or higher, chills, very bad sore throat, ear or sinus pain, cough, more sputum or change in color of sputum. ?? Sinus headache lasts for more than a week ?? The drugs your doctor gave you do not work ?? You are not feeling better in 2 to 3 days or you are feeling worse Teach Back: Helping You Understand The Teach Back Method helps you understand the information we are giving you. The idea is simple. After talking with the staff, tell them in your own words what you were just told. This helps to makesure the staff has covered each thing clearly. It also helps to explain things that may have been abit confusing. Before going home, make sure you are able to do these: ?? I can tell you about my condition. ?? I can tell you what may help ease my pain. ?? I can tell you what I will do if my headache lasts for more than a week. Where can I learn more? [employer] https://americanmigrainefoundation.org/understanding-migraine/sinus-headaches/ NHS Choices http://www.nhs.uk/conditions/sinus-headache/Pages/Introduction.aspx Last Reviewed Date 2018-08-08 Consumer Information Use and Disclaimer This information is not specific medical advice and does not replace information you receive from your health care provider. This is only a brief summary of general information. It does NOT include all information about conditions, illnesses, injuries, tests, procedures, treatments, therapies, discharge instructions or life-style choices that may apply to you. You must talk with your health care provider for complete information about your health and treatment options. This information should not be used to decide whether or not to accept your health care provider???s advice, instructions or recommendations. Only your health care provider has the knowledge and training to provide advice that is right for you. Copyright Copyright ?? 2019 [employer]. and its affiliates and/or licensors. All rights reserved. TRIC BLASTING CAP ASSEMBLER documented in this encounter Progress Notes * CHAPARRITA Maria - 11/23/2019 3:20 PM CST Images from the original note were not included. _ Reason for Visit: URI/ENT Symptoms (Sore throat, headaches, chest congestion, productive cough. Symptoms for almost aweek. Has been taking dayquil with some relief) History of Present Illness: FRANK Neri is a 13-year-old female here for complaints of runny nose cough sore throat she has been sick for over a week she feels like she is getting worse shehas some nausea she has had no vomiting or diarrhea ROS: Review of Systems Feeling sick. Denies headaches, vision or hearing problems. Denies dysphagia, heartburn or indigestion. No dyspnea or chest pain on exertion. No nausea, abdominal pain, change in bowel habits, black or bloody stools. No urinary tract symptoms. No muscle or joint aches or pains. No foot or leg edema. No numbness, tingling,or weakness. No anxiety or depressive symptoms, Sleeping well. No significant weight gain or loss. No fatigue. Medications: Outpatient Medications Marked as Taking for the 11/23/19 encounter (Office Visit) with CHAPARRITA Maria Medication Sig Dispense Refill ??? amoxicillin 500 MG capsule Take 1 capsule (500 mg total) by mouth 3 (three) times daily for 10 days. 30 capsule 0 ??? loratadine 10 MG tablet Take 10 mg by mouth daily. ??? Xavhzpfhutoiwty-WU-DB-APAP (DAYQUIL LIQUICAPS OR) Take 2 tablets by mouth as needed. No Known Allergies History reviewed. No pertinent past medical history. History reviewed. No pertinent surgical history. Social History Tobacco Use ??? Smoking status: Never Smoker ??? Smokeless tobacco: Never Used Substance Use Topics ??? Alcohol use: No Frequency: Never ??? Drug use: No No family history on file. No family status information on file. Physical Exam Constitutional: Patient is oriented to person, place, and time. Patient appears well-developed and well-nourished. HENT: Right Ear: External ear normal. Left Ear: External ear normal. TMs of air-fluid levels bilaterally head: Normocephalic. Nose: Nose normal. Mouth/Throat: Oropharynx is clear and moist. No postnasal drainage eyes: Pupils are equal, round, and reactive to [...] edema, tenderness or deformity. Lymphadenopathy: Patient has positive cervical adenopathy. Neurological: Patient is alert and oriented to person, place, and time. Skin: No rash noted. No erythema. Psychiatric: Patient has a normal mood and affect. The behavior is normal. Thought content normal. No flowsheet data found. Vitals: 11/23/19 1534 Patient Position: Sitting BP Location: Right arm BP: (!) 102/66 Pulse: 77 Body mass index is 23.73 kg/m??. Diagnoses/Impression: 1. Acute non-recurrent frontal sinusitis amoxicillin 500 MG capsule Orders Placed This Encounter ??? Sgberqrfikzftvn-HW-QM-APAP (DAYQUIL LIQUICAPS OR) ??? amoxicillin 500 MG capsule Recommendations and Plan: See patient instructions I also suggest that she take Mucinex Patient should follow annual wellness exams recommended for age and sex of patient. Items to consider but not limited included yearly annual fasting labs, colonscopy or cologuard when indicated. PSA and prostate for males. Mammogram and female exam for females, Christina Reid PA-C evaluated and Dr Buddy Allen reviewed and agrees with plan. Cosigned by Buddy Allen MD at 11/23/2019 5:09 PM ELECTRIC BLASTING CAP ASSEMBLER TRIC BLASTING CAP ASSEMBLER TRIC BLASTING CAP ASSEMBLER documented in this encounter Plan of Treatment Not on file documented as of this encounter Visit Diagnoses Diagnosis Acute non-recurrent frontal sinusitis- Primary documented in this encounter
--- OUTSIDE RECORDS SUMMARY | 2024-10-25 16:38 | XMS_ITS | Encounter Summary ---
Author Organization [facility] Address [address] [place] [address]. [place] [address] [place] [address] Care Team Providers Care Real Estate Developer Name Role Phone Christina Reid Primary Care Provider [phone] Encounter Details Date Type Department Care Team (Latest Contact Info) Description 06/08/2020 Travel Social History Tobacco Use Types Packs/Day [...] Exposure Response Date Recorded In the last month, have you been in contact with someone who was confirmed or suspected to have Coronavirus / COVID-19? No / Unsure 06/08/2020 3:46 PM CDT documented as of this encounter Plan of Treatment Not on file documented as of this encounter Visit Diagnoses Not on filedocumented in this encounter Care Teams Real Estate Developer Relationship Specialty [place] [address] [place] [address] PCP - General PHYSICIAN OTR [employer] TRUCK DRIVER 12/29/19 10/27/23 documented as of this encounter
--- OUTSIDE RECORDS SUMMARY | 2024-10-25 16:38 | XMS_ITS | Encounter Summary ---
Author Organization [facility] Address [facility] [place] [address] [place] [address] Care Team Providers Care Management Psychologist Name Role Phone Christina Reid Primary Care Provider [phone] Reason for Visit * Reason Comments Sports Physical Encounter Details Date Type Department Care Team (Late st Contact Info) Description 12/13/2021 4:00 PM ABSENCE MANAGEMENT CONSULTANT Office Visit [facility] Family & Internal Medicine - [place] [address] [place] [address] [place] [address] [place], [place] [id number] Sports Physical Social History Tobacco Use Types [...] suspected to have Coronavirus/COVID-19? No / Unsure 12/13/2021 3:51 PM ABSENCE MANAGEMENT CONSULTANT documented as of this encounter Last Filed Vital Signs Vital Sign Reading Time Taken Comments Blood Pressure 102/70 12/13/2021 3:55 PM ABSENCE MANAGEMENT CONSULTANT Pulse 85 12/13/2021 3:55 PM ABSENCE MANAGEMENT CONSULTANT Temperature 36.6 ??C (97.9 ??F) 12/13/2021 3:55 PM CS T Respiratory Rate 18 12/13/2021 3:55 PM ABSENCE MANAGEMENT CONSULTANT Oxygen Saturation 99% 12/13/2021 3:55 PM ABSENCE MANAGEMENT CONSULTANT Inhaled Oxygen Concentration - - Weight 76.7 kg (169 lb) 12/13/2021 3:55 PM ABSENCE MANAGEMENT CONSULTANT Height 176.5 cm (5' 9.5 ) 12/13/2021 3:55 PM ABSENCE MANAGEMENT CONSULTANT Body Mass Index 24.6 12/13/2021 3:55 PM ABSENCE MANAGEMENT CONSULTANT Body Mass Index Percentile 82.39% 12/13/2021 3:5 5 PM ABSENCE MANAGEMENT CONSULTANT Growth Chart: [facility] (Girls, 2- 20 Years) documented in this encounter Progress Notes * CHAPARRITA Maria - 12/13/2021 4:00 PM CST Images from the original note were not included. _ Reason for Visit: Sports Physical History of Present Illness: FRANK Neri is a 15-year-old female here for sports physical ROS: Review of Systems Feeling well. Denies [...] have been marked as taking for the 12/13/21 encounter (Office Visit) with CHAPARRITA Maria. No [...] ??? Mother Alive ??? Father Aren Alive PHQ-2 - Over the last 2 weeks, how often have you been bothered by any of the following problems? 1. Little Interest or pleasure in doing things: 0-Not at All 2. Feeling down,depressed,or hopeless: 0-Not at All PHQ-2 Score - If the patient scores above 3, please move on to questions 3-9: 0 PHQ 9 - Over the last 2 weeks, how often have you been bothered by any of the following problems? Total Score: 0 Physical Exam Constitutional: Patient is oriented to [...] content normal. No flowsheet data found. Vitals: 12/13/21 1555 Patient Position: Sitting BP Location: Left arm Cuff size: Adult Regular BP: 102/70 Pulse: 85 Body mass index is 24.6 kg/m??. Assessment and Plan Encounter Diagnose(s) ICD-10-CM ICD-9-CM SNOMED CT(R) 1. Routine sports physical exam Z02.5 V70.3 SPECIAL EXAMINATION STATUS There are no diagnoses linked to this encounter. No orders of the defined types were placed in this encounter. See form I spent over 30 minutes obtaining history and performing exam. Time was also spent either ordering medications, tests, or ordering procedures. Time was also spent documenting the medical record, reviewing results, and communicating test results to the patient. Patient should follow annual wellness exams recommended for age and sex of patient. Items to consider but not limited included yearly annual fasting labs, colonscopy or cologuard when indicated. PSA and prostate for males. Mammogram and female exam for females, Portions of this note were dictated using [employer] speech recognition software. Occasional wrong wordor sound-alike substitutions may have occurred due to the inherent limitations of voice recognition software. Please read the chart carefully and recognize, using context, where the substitutions may have occurred. Christina Reid PA-C evaluated and Dr Buddy Allen reviewed and agrees with plan. Cosigned by Buddy Allen MD at 12/14/2021 7:40 AM ABSENCE MANAGEMENT CONSULTANT NCE MANAGEMENT CONSULTANT NCE MANAGEMENT CONSULTANT documented in this encounter Plan of Treatment Not on file documented as of this encounter Visit Diagnoses Diagnosis Routine sports physical exam- Primary Other general medical examination for administrative purposes documented in this encounter Additional Health Concerns Assessment Noted Time PHQ-9 Depression Total Score: 0 12/13/19 22 3:57 PM ABSENCE MANAGEMENT CONSULTANT documented as of this encounter Care Teams Management Psychologist Relationship Specialty [place] [address] [place] [address] PCP - General PHYSICIAN BULK FILLER 12/29/19 10/27/23 documented as of this encounter
--- OUTSIDE RECORDS SUMMARY | 2024-10-25 16:38 | XMS_ITS | Encounter Summary ---
Author Organization [facility] Address [facility] [place] [address] [place] [address] Care Team Providers Care Brush Or Broom Cutter Name Role Phone Monet Silver [facility] Primary Care Provider + Reason for Visit * Reason Onset Date Comments Appointment Reminder 03/17/2024 Encounter Details Date Type Department Care Team (Late st Contact Info) Description 03/17/2024 Telephone [facility] Orthopedic & Sports Medicine - [place] [address] [place], [place] [id number] Elias Boland MD [address] [place] [address] Appointment Reminder Social History Tobacco Use Types Packs/Day Years [...] as of this encounter Progress Notes * Rosemary Marcelino MA - 03/17/2024 2:53 PM CDT Called patient and verified that it was her left foot. She was scheduled with Dr. Boland on 03/19 at 8AM. * Hedy Francis MA - 03/17/2024 2:37 PM CDT Patient c/o pain in foot received request for appt to rule out possible stress fx Per Dr. Boland he will see patient this week and then Dr. Morley will see any follow ups needed task to Rosemary to schedule documented in this encounter Plan of Treatment Not on file documented as of this encounter Visit Diagnoses Not on filedocumented in this encounter Additional Health Concerns Assessment Noted Time PHQ-9 Depression Total Score: 0 10/28/19 24 4:50 PM CONSERVATION ENFORCEMENT OFFICER documented as of this encounter Care Teams Brush Or Broom Cutter Relationship Specialty Start Date End Date Monet Silver, STITCH BONDER MACHINE OPERATOR HELPER- [address], [address] [place] [address] PCP - General Nurse Practitioner Family 10/28/23 documented as of this encounter
--- OUTSIDE RECORDS SUMMARY | 2024-10-25 16:38 | XMS_ITS | Encounter Summary ---
Author Organization [facility] Address [address] [place] [address]. [place] [address] [place] [address] Care Team Providers Care Crop Research Scientist Name Role Phone Unavailable Primary Care Provider Unavailabl e Encounter Details Date Type Department Care Team (Late st Contact Info) Description 04/13/2008 Abstract [facility] CONVERSION [address] [place] [address] , Generic Conversion, Social History Tobacco Use Types Packs/Day Years [...]
--- OUTSIDE RECORDS SUMMARY | 2024-10-25 16:38 | XMS_ITS | Encounter Summary ---
Author Organization [facility] Address [facility] [facility] [place] [address] [place] [address] Care Team Providers Care Refueling Ramp Supervisor Name Role Phone Monet SilverP- Primary Care Provider + Encounter Details Date Type Department Care Team (Latest Contact Info) Description 03/31/2024 Travel Social History Tobacco Use Types Packs/Day [...] Total Score: 0 10/28/19 24 4:50 PM DUMPCART DRIVER documented as of this encounter Care Teams Refueling Ramp Supervisor Relationship Specialty Start Date End Date Monet Silver FNP-BC [address], [address] [place] [address] PCP - General Nurse Practitioner Family 10/28/23 documented as of this encounter
--- OUTSIDE RECORDS SUMMARY | 2024-10-25 16:38 | XMS_ITS | Encounter Summary ---
Author Organization [facility] Address [address] [place] [address] [place] [address] Care Team Providers Care Book Critic Name Role Phone Monet Silver [facility] Primary Care Provider + Reason for Referral * Imaging (Urgent) - Closed Specialty Diagnoses / Procedures Referred By Contac t Referred To Contact RADIOLOGY Diagnoses Left foot pain Procedures MRI FOOT LT WO CON Héctor Dumas MD [address] [place] [address] Phone: tel:[phone] fax: Referral ID Status Reason Start Date Expiration Date Visits Re quested Visits Authorized [id number] Closed 03/19/2024 04/18/2025 1 1 Reason for Visit * Reason Comments New Patient L foot pain that ran domly flared up end of softball season last fall. Pain under ball of foot. Worsens when bares weight. No known trauma Encounter Details Date Type Department Care Team (Late st Contact Info) Description 03/19/2024 8:00 AM CDT Office Visit [facility] Orthopedic & Sports Medicine - [place] [address] [place] [address] Héctor Dumas MD [address] [place] [address] New Patient (L foot pain that randomly flared up end of softball season last fall. Pain under ball of foot. Worsens when bares weight. No known trauma) Social History Tobacco Use Types Packs/Day Years [...] Sign Reading Time Taken Comments Blood Pressure 111/77 03/19/2024 8:04 AM CDT Pulse 77 03/19/2024 8:04 AM CDT Temperature 36.6 ??C (97.9 ??F) 03/19/2024 8 :04 AM CDT Respiratory Rate - - Oxygen Saturation - - Inhaled Oxygen Concentration - - Weight 79.6 kg (175 lb 6.4 oz) 03/19/2024 8:04 AM CDT Height 180.3 cm (5' 11 ) 03/19/2024 8:0 4 AM CDT patient reports Body Mass Index 24.46 03/19/2024 8:04 AM CDT documented in this encounter Progress Notes * Héctor Dumas MD - 03/19/2024 8:00 AM CDT Images from the original note were not included. Office Visit Reason for Visit: New Patient (L foot pain that randomly flared up end of softball season last fall. Pain under ball of foot. Worsens when bares weight. No known trauma) History of Present Illness: Azalia Neri is a healthy and active 18-year-old female presents for evaluation of chronic left foot pain. 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 She noted around July 2023 and shehad increasing left great toe pain. She was able to continue with normal activities with occasionalsoreness. She finished a full fall and spring season and softball but it seems that it is graduallyinterfering with her performance. Denies any specific injuries or trauma that contributed to the pain. It has been gradual and progressive. Denies having issues like this in the past. Denies numbnessor tingling to left lower extremity. Review of Systems: Constitutional: Negative for chills, fever and significant weight changes. Respiratory: Negative for shortness of breath, dyspnea. Cardiovascular: Negative for chest pain. Gastrointestinal: Negative for abdominal pain, constipation, diarrhea, nausea and vomiting. Genitourinary: Negative for dysuria. Outpatient Medications Marked as Taking for the 03/19/24 encounter (Office Visit) with Héctor Dumas MD Medication Sig Dispense Refill busPIRone (BUSPAR) 15 MG tablet TAKE 1 TABLET(15 MG) BY MOUTH TWICE DAILY 90 tablet 0 drospirenone-ethinyl estradiol (KISHOR) 3-0.02 MG tablet Take 1 tablet by mouth daily. 84 tablet 0 Review of patient's allergies indicates: No Known Allergies Past Medical History: Diagnosis Date Allergy seasonal Anxiety History reviewed. No pertinent surgical history. Social History Tobacco Use Smoking status: Never Smokeless tobacco: Never Vaping Use Vaping status: Never Used Substance Use Topics Alcohol use: No Drug use: No Family History Problem Relation Name Age of Onset Diabetes Father Aren Vital Signs: Filed Vitals: 03/19/24 0804 BP: 111/77 Pulse: 77 Temp: 97.9 ??F (36.6 ??C) TempSrc: Temporal Weight: 79.6 kg (175 lb 6.4 oz) Height: 1.803 m (5' 11 ) Estimated BMI Today: Estimated body mass index is 24.46 kg/m?? as calculated from the following: Height as of this encounter: 1.803 m (5' 11 ). Weight as of this encounter: 79.6 kg (175 lb 6.4 oz). Physical Exam: Constitutional: she is oriented to person, place, and time. she appears well- developed and well-nourished. No distress. HENT: Head: Normocephalic and atraumatic. Eyes: Conjunctivae are normal. No scleral icterus. Neck: Neck supple. Cardiovascular: Regular rate and intact distal pulses. Pulmonary/Chest: Effort normal. No stridor. No respiratory distress. Neurological: she is alert and oriented to person, place, and time. Skin: Skin is warm and dry. Psychiatric: she has a normal mood and affect. Nursing note and vitals reviewed. Ortho Exam: Physical examination of the left foot and ankle demonstrates no significant swelling or edema. She has normal posture. She has good range of motion. She is neurovascular intact distally. She is tender along the medial sesamoid of the great toe. She has good range of motion of the great toe. Imaging: Radiographs of the left foot demonstrates lucency through the medial sesamoid of the great toe withincreased sclerosis of the medial sesamoid. 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 This is a chronic condition, I do not think that she would really benefit from any immediate immobilization. She could potentially benefit from surgery. Case was discussed with Dr. Garcia who recommended an MRI and follow-up in his clinic to discuss further care. MRI ordered today and follow-up with Dr. Garcia to be scheduled after obtaining the images. Encounter Diagnose(s) ICD-10-CM SNOMED CT(R) 1. Left foot pain M79.672 PAIN IN LEFT FOOT MRI FOOT LT WO CON HÉCTOR DUMAS MD 03/19/2024 Portions of this note were dictated using Slingbox speech recognition software. Occasional wrong wordor sound-alike substitutions may have occurred due to the inherent limitations of voice recognition software. Please read the chart carefully and recognize, using context, where the substitutions may have occurred. documented in this encounter Plan of Treatment Not on file documented as of this encounter Results * MRI FOOT LT WO CON (03/31/2024 9:09 AM CDT) Anatomical Region Laterality Modality Foot Magnetic Resonan ce 03/31/2024 9:19 AM CDT Impressions 03/31/2024 9:25 AM CDT =====IMPRESSION:===== Possible tibial sesamoiditis of the first MTP. Bipartite tibial sesamoid. Adjacent mild plantar subcutaneous T2 hyperintensity, which may relate to adventitial bursitis. No acute osseous abnormality. No evidence of stress fracture, no bursitis. Ordered By: HÉCTOR DUMAS Interpreted By: Deep Topete, 03/31/2024 9:19 AM Narrative 03/31/2024 9:25 AM CDT EXAMINATION: MRI left foot without contrast EXAM DATE/TIME: 03/31/2024 8:25 AM REASON FOR EXAM: ??medial sesamoid injury Foot pain, chronic, osseous injury suspected ? First digit pain COMPARISON: None TECHNIQUE: Multiplanar, multisequence MRI of the left foot was obtained without the use of an IV contrast agent. FINDINGS: Mild plantar subcutaneous edema adjacent to the first MTP. No evidence of intermetatarsal bursitis. No evidence of intrinsic muscular atrophy of the foot. No convincing evidence of tenosynovitis or tendon tear. Lisfranc ligament is intact. No evidence of fracture. No suspicious bone lesion. Midfoot articulations intact. First MTP: T2 hyperintensity of the tibial sesamoid concerning for sesamoiditis and possible contusion. Joint well aligned. There is a bipartite tibial sesamoid. Procedure Note Deep Topete MD - 03/31/2024 EXAMINATION: MRI left foot without contrast EXAM DATE/TIME: 03/31/2024 8:25 AM REASON FOR EXAM: medial sesamoid injury Foot pain, chronic, osseous injury suspected First digit pain COMPARISON: None TECHNIQUE: Multiplanar, multisequence MRI of the left foot was obtainedwithout the use of an IV contrast agent. FINDINGS: Mild plantar subcutaneous edema adjacent to the first MTP. No evidence of intermetatarsal bursitis. No evidence of intrinsic muscular atrophy of the foot. No convincing evidence of tenosynovitis or tendon tear. Lisfranc ligament is intact. No evidence of fracture. No suspicious bone lesion. Midfoot articulations intact. First MTP: T2 hyperintensity of the tibial sesamoid concerning forsesamoiditis and possible contusion. Joint well aligned. There is abipartite tibial sesamoid. =====IMPRESSION:===== Possible tibial sesamoiditis of the first MTP. Bipartite tibial sesamoid.Adjacent mild plantar subcutaneous T2 hyperintensity, which may relate toadventitial bursitis. No acute osseous abnormality. No evidence of stress fracture, nobursitis. Ordered By: HÉCTOR DUMAS Interpreted By: Deep Topete, 03/31/2024 9:19 AM us Héctor Dumas MD MRI Final Result documented in this encounter Visit Diagnoses Diagnosis Left foot pain- Primary Pain in limb Left foot pain Pain in limb documented in this encounter Additional Health Concerns Assessment Noted Time PHQ-9 Depression Total Score: 0 10/28/19 24 4:50 PM RETAIL CLIENT MANAGER documented as of this encounter Care Teams Book Critic Relationship Specialty Start Date End Date Monet Silver, NEWSPAPER PRESS OPERATOR APPRENTICE- [id number] [facility], [address] [place] [id number] PCP - General Nurse Practitioner Family 10/28/23 documented as of this encounter
--- OUTSIDE RECORDS SUMMARY | 2024-10-25 16:38 | XMS_ITS | Encounter Summary ---
Author Organization [facility] Address [facility] [facility] [place] [address] [place] [address] Care Team Providers Care Mortgage Branch Manager Name Role Phone Unavailable Primary Care Provider Unavailabl e Reason for Visit * Reason Comments Physical 9th grade pysical an d sports physical-pt plays basketball and softball Encounter Details Date Type Department Care Team (Late st Contact Info) Description 04/30/2019 7:20 AM CDT Office Visit [facility] Family & Internal Medicine [address] [phone] Serina Lyles NP Physical (9th grade pysical and sports physical-pt plays basketball and softball ) Social History Tobacco Use Types Packs/Day [...] Sign Reading Time Taken Comments Blood Pressure 102/64 04/30/2019 7:34 AM CDT Pulse 87 04/30/2019 7:34 AM CDT Temperature 37.1 ??C (98.7 ??F) 04/30/2019 7:34 AM CD T Respiratory Rate 16 04/30/2019 7:34 AM CDT Oxygen Saturation 98% 04/30/2019 7:34 AM CDT Inhaled Oxygen Concentration - - Weight 69 kg (152 lb 3.2 oz) 04/30/2019 7:34 AM CDT Height 175.3 cm (5' 9 ) 04/30/2019 7:34 AM CDT Body Mass Index 22.48 04/30/2019 7:34 AM CDT Body Mass Index Percentile 79.07% 04/30/2019 7:3 4 AM CDT Growth Chart: [facility] (Girls, 2- 20 Years) documented in this encounter Progress Notes * Serina Lyles NP - 04/30/2019 7:20 AM CDT Reason for Visit: Physical (9th grade pysical and sports physical-pt plays basketball and softball ) History of Present Illness: Azalia Neri is a 13-year-old female who presents to the office for routine annual exam today.She is needing sports physical form filled out today. ROS: Review of Systems Constitutional: Negative. HENT: Negative. Eyes: Negative. Respiratory: Negative. Cardiovascular: Negative. Gastrointestinal: Negative. Genitourinary: Negative. Musculoskeletal: Negative. Skin: Negative. Neurological: Negative. Psychiatric/Behavioral: Negative. Medications: Current Outpatient Medications: ??? wjymfpoz-ojuvykwtw-rbsokdzummvlbb otic solution, Place 3 drops in ear(s) 4 (four) times daily.,Disp: , Rfl: No Known Allergies No past medical history on file. No past surgical history on file. Social History Socioeconomic History ??? Marital status: Single Spouse name: Not on file ??? Number of children: Not on file ??? Years of education: Not on file ??? Highest education level: Not on file Occupational History ??? Not on file Social Needs ??? Financial resource strain: Not on file ??? Food insecurity: Worry: Not on file Inability: Not on file ??? Transportation needs: Medical: Not on file Non-medical: Not on file Tobacco Use ??? Smoking status: Never Smoker ??? Smokeless tobacco: Never Used Substance and Sexual Activity ??? Alcohol use: No Frequency: Never ??? Drug use: No ??? Sexual activity: No Lifestyle ??? Physical activity: Days per week: Not on file Minutes per session: Not on file ??? Stress: Not on file Relationships ??? Social connections: Talks on phone: Not on file Gets together: Not on file Attends synagogue service: Not on file Active member of club or organization: Not on file Attends meetings of clubs or organizations: Not on file Relationship status: Not on file ??? Intimate partner violence: Fear of current or ex partner: Not on file Emotionally abused: Not on file Physically abused: Not on file Forced sexual activity: Not on file Other Topics Concern ??? Not on file Social History Narrative ??? Not on file No family history on file. No family status information on file. Physical Exam Constitutional: She is oriented to person, place, and time. She appears well- developed and well-nourished. HENT: Head: Normocephalic. Eyes: Conjunctivae are normal. Neck: Neck supple. Cardiovascular: Normal rate, regular rhythm and normal heart sounds. Pulmonary/Chest: Effort normal and breath sounds normal. Neurological: She is alert and oriented to person, place, and time. Skin: Skin is warm and dry. Psychiatric: She has a normal mood and affect. Her behavior is normal. Judgment and thought contentnormal. Nursing note and vitals reviewed. Filed Vitals: 04/30/19 0734 BP: 102/64 Pulse: 87 Resp: 16 Temp: 98.7 ??F (37.1 ??C) TempSrc: Oral SpO2: 98% Weight: 69 kg (152 lb 3.2 oz) Height: 5' 9 (1.753 m) Body mass index is 22.48 kg/m??. Assessment Encounter Diagnose(s) ICD-10-CM ICD-9-CM SNOMED CT(R) 1. Encounter for routine child health examination without abnormal findings Z00.129 V20.2 PATIENT ENCOUNTER STATUS Recommendations and Plan: Orders Placed This Encounter ??? natshcpu-lhxhadhvz-gbmnbmxepwhtha otic solution Normal physical today and forms filled out and returned to patient. F/U annually and PRN SERINA LYLES NP 04/30/2019 8:07 AM documented in this encounter Plan of Treatment Not on file documented as of this encounter Visit Diagnoses Diagnosis Encounter for routine child health examination without abnormal findings- Primary Routine infant or child health check documented in this encounter
--- OUTSIDE RECORDS SUMMARY | 2024-10-25 16:38 | XMS_ITS | Encounter Summary ---
Author Organization [facility] Address [facility] [facility] [place] [address] [place] [address] Care Team Providers Care Claims Supervisor Name Role Phone Christina Reid Primary Care Provider [phone] Encounter Details Date Type Department Care Team (Latest Contact Info) Description 11/10/2021 Scan HEALTH INFO SRVCS Scanned, Documents Social History Tobacco Use Types Packs/Day Years [...] on filedocumented in this encounter Care Teams Claims Supervisor Relationship Specialty [place] [address] [place] [address] PCP - General PHYSICIAN DRUG SAFETY SCIENTIST 12/29/19 10/27/23 documented as of this encounter
--- OUTSIDE RECORDS SUMMARY | 2024-10-25 16:38 | XMS_ITS | Encounter Summary ---
Author Organization [facility] Address [facility]ly [facility] [place] [address] [place] [address] Care Team Providers Care Melting Supervisor Name Role Phone Unavailable Primary Care Provider Unavailabl e Encounter Details Date Type Department Care Team (Latest Contact Info) Description 05/26/2018 Abstract [facility] Martinez Myers MD Social History Tobacco Use Types Packs/Day Years Used Date Smoking Tobacco: Never Assessed Comments Unknown Sex and Gender Information Value Date Recorded Sex Assigned at Not on file Legal Sex Female 6:09 PM CDT Gender Identity Not on file Sexual Orientation Not on file documented as of this encounter Progress Notes * Martinez Saini Md, MD - 05/26/2018 2:19 PM CDT [facility] Authorization Release of Information First Name: Azalia Ryan initial: Last Name: Halle Álvarez Maggie authorize [facility] to release any and all healthcare information about me to my [facility] personal health record for my own uses and purposes. I acknowledge that such healthcare information may include the following: x-rays, clinical diagnosis, histories of present illnesses, immunizations, allergies, prescription drug information, laboratory results, diagnosticscreening and testing, clinical procedures, medical research, clinical trials, billing, account, and insurance information. I acknowledge that such healthcare information may include information regarding mental health screenings and/or treatment, including psychotherapy notes; HIV/AIDS, infectious disease, sexually transmitted infection testing, screening, diagnosis, and/or treatment; genetic testing; history of domestic violence, child abuse, and/or family abuse; and, substance/alcohol use and treatment history. I acknowledge that with this authorization [facility] may disclose any information or records (within the scope of the authorization) that [facility] has received about me from other healthcare Practices or facilities. [facility] may, within its discretion, withhold from disclosure any of the above information as permitted or required by law. Access to treatment or services may not be denied to me if I decline to sign this Authorization or revoke my Authorization. However, without this Authorization, my Practice will not electronically release my healthcare information to my [facility] personal health record. I may revoke this Authorization at any time. Such revocation will promptly take effect except to the extent that [facility] already has acted based on this Authorization. I may revoke this Authorization by removing [facility] as a health care Practice with whichI want to be connected on my [facility] account or providing my request to [facility]. However, I acknowledge that data previously submitted by [facility] as authorized by me prior to my subsequent revocation of this Authorization will remain in my [facility] account. I understand that I may delete my [facility] account any time. This authorization shall end upon the earliest of: a) the termination of the connection between my healthcare Practice and my [facility] Account; or b) upon my written request submitted to . For Authorized Representatives of Patients younger than 18 years old: This Authorization shall upon the earliest of: (1) the date the minor reaches the age of 18; or (2) the date [facility] receives written revocation from the minor, as an emancipated minor with legal authority to managehis/her own healthcare. I understand that the information submitted to my [facility] account is subject to the privacy and security protections of applicable Federal and State laws. I further understand and acknowledge that the manner in which [facility] protects my personal information is detailed in the [facility] Privacy Policy and the [facility] Terms of Use. I understand that [facility] is not responsible for the security of data stored in the [facility] database, and that the owners of [facility] are responsible for ensuring the securityof the data stored in [facility]. I have the right to receive a copy of this Authorization and may do so by clicking [Print] above. Signed on 05/26/2018 Please complete the following information: Halle Azalia 2005 If signing on behalf of a Patient, please complete the following: Relationship to Patient: [Place x in the appropriate box below] [ ] Patient [X] Parent/Guardian/Other Legal Sack Sewer Machine By clicking [I ACCEPT], I acknowledge and agree to the terms of this Authorization. * Generic Parveen Myers MD - 05/26/2018 2:19 PM CDT [facility] Authorized Individual Authorization - Full Access By accepting where indicated below, I hereby authorize Jane Neri (hereinafter, Authorized Individual ) to have full access to my [facility] personal health record. By authorizing Authorized Individual to have full access to my [facility] account, I acknowledge and agree that I am authorizing Authorized Individual to: *Review and update my personal health record as maintained on [facility]; *Communicate with my health care providers with regard to my health status and otherwise; *Engage, on my behalf, in such transactions as are permitted between me and my health care providers through all existing communication channels including, but not limited to, Lot[employer] I understand that that once my information is disclosed to Authorized Individual, I will no longer have control over my health information and Authorized Individual may re-disclose my health information in such manner as Authorized Individual may determine from time to time. [facility] will not be resp onsible for re-disclosures by Authorized Individual. Authorization for Disclosure of PHI from [facility] to Authorized Individual By accepting where indicated below, I hereby authorize: [facility], on its own behalf and on behalf of: (1) all of its subsidiaries and otherwise affiliated entities for which it has the authority to act; (2) each of their respective employees, independent contractors and agents; and (3) each of their respective employed or contracted health care providers, as applicable (collectively, [facility] , to disclose the following information to the above named Authorized Individual: Any and all data and health information about me maintained by [facility], including but not limited to information related to the following types of records or information: billing and account statements, prescription drug information, secured e-mail transmissions between myself and [facility], and clinical testing and laboratory results, including but not limited, to genetic testing information, mental health treatment information (excluding psychotherapy notes), infectious disease information (including HIV status), information regarding mental, physical or sexual abuse; and substance abuse treatment information. [facility] may, within its discretion, elect to withhold from disclosure to the Authorized Individual any of the above information that contains particularly sensitive information. I understand that the disclosure of HIV/AIDS-related records and information to the Authorized Individual could have adverse consequences for me, including the loss or denial of employment, the loss or denial of health or life insurance benefits, alienation from friends and family members, and other forms of discriminatory treatment, whether lawful or unlawful. I understand that I have the right to review my mental health records at any reasonable time prior to authorizing their disclosure. I understand that my authorization includes the authorization to disclose any information or records (within the scope of this authorization) that [facility] has received from other healthcare providers or facilities. The purpose of this authorization is to enable Authorized Individual, on my behalf and in my stead,to access and maintain my personal health record on [facility], and otherwise to communicate with and engage in transactions with my health care providers, subject to my control and direction. This authorization shall upon (1) my termination of my [facility] account; or (2) my removal of Authorized Individual as an authorized user of [facility]. I may terminate my [facility] Account or terminate an Authorized Individual by following the directions on my [facility] account at any time. In addition, I can request assistance from [facility] in so doing by sending an email to [email or web address] By signing where indicated below, I acknowledge that: I may revoke this Authorization at any time. Such revocation will promptly take effect except to the extent that my health care provider has already acted based on this Authorization. I may revoke this Authorization by removing Authorized Individual as an authorized user of my [facility] account. I understand that when I remove Authorized Individual as an authorized user of my [facility] a ccount, I will be prompted by [facility] to submit a Revocation of Authorization form to my health care provider, which shall terminate my authorization. My health care provider cannot condition my access to treatment or services if I refuse to sign this Authorization. However, I further acknowledge that if I do not authorize my health care provider to communicate with Authorized Individual through FollowMyHealth or otherwise, it may not release my information to Authorized Individual. I further acknowledge and agree that my health care provider may require additional documentation from me and/or Authorized Individual before it will communicate with Authorized Individual with regard to my health care. I understand that that once my information is disclosed to Authorized Individual, it will no longerbe protected health information covered by the HIPAA Privacy Rule and may be subject to further disclosure. [facility] will not be responsible for re-disclosures by Authorized Individual. I have the right to receive a copy of this authorization and a copy may be found in the documents section of my [facility] account. Signed on 05/26/2018 Fill in the following information: Last Name, First Name and CA: Jane Neri Proxy For Azalia Neri Date of : [DD/MM/YYYY] 2005 Contact Information for Jane Neri Phone Number Mailing Address Relationship to subject of information: [Place x in the appropriate box below] [] Patient [X] Parent/Guardian/Other Legal Sack Sewer Machine By clicking [I ACCEPT], I acknowledge and agree to the terms of this authorization. documented in this encounter Plan of Treatment Not on file documented as of this encounter Visit Diagnoses Not on filedocumented in this encounter
--- OUTSIDE RECORDS SUMMARY | 2024-10-25 16:38 | XMS_ITS | Encounter Summary ---
Author Organization [facility] Address [facility] [place] [address] [place] [address] Care Team Providers Care Automotive Service Professional Name Role Phone Monet Silver [facility] Primary Care Provider + Encounter Details Date Type Department Care Team (Late st Contact Info) Description 04/22/2024 [email or web address] Message Enc [facility] Family & Internal Medicine [facility] [address] [place] [address] Monet Silver, [facility] [address] [facility] [address] [place] [address] Upcoming Appt. 04/30/24 Social History Tobacco Use Types Packs/Day Years [...] Total Score: 0 10/28/19 24 4:50 PM TEARER documented as of this encounter Care Teams Automotive Service Professional Relationship Specialty Start Date End Date Monet Silver, PROPERTY CARETAKER- [address], [address] [place] [address] PCP - General Nurse Practitioner Family 10/28/23 documented as of this encounter
--- OUTSIDE RECORDS SUMMARY | 2024-10-25 16:38 | XMS_ITS | Encounter Summary ---
Author Organization [facility] Address [address] [place] [address]. [place] [address] [place] [address] Care Team Providers Care Tissue Technologist Name Role Phone Monet SilverP- Primary Care Provider + Encounter Details Date Type Department Care Team (Latest Contact Info) Description 03/19/2024 Scan HEALTH INFO SRVCS Scanned, Doc Med [...] Total Score: 0 10/28/19 24 4:50 PM YARN REWINDER documented as of this encounter Care Teams Tissue Technologist Relationship Specialty Start Date End Date Monet Silver FNP-TIP [address], [address] [place] [address] PCP - General Nurse Practitioner Family 10/28/23 documented as of this encounter
--- OUTSIDE RECORDS SUMMARY | 2024-10-25 16:38 | XMS_ITS | Encounter Summary ---
Author Organization [facility] Address [address] [place] [address]. [place] [address] [place] [address] Care Team Providers Care Prosthetic Dentist Name Role Phone Christina Reid Primary Care Provider [phone] Monet Silver [facility] Primary Care Provider + Encounter Details Date Type Department Care Team (Latest Contact Info) Description 06/21/2023 Scan HEALTH INFO SRVCS Scanned, Doc Med [...] Total Score: 0 12/13/19 22 3:57 PM AUTOMOTIVE MACHINIST APPRENTICE documented as of this encounter Care Teams Prosthetic Dentist Relationship Specialty [place] [address] [place] [address] PCP - General PHYSICIAN RESPIRATORY THERAPIST ASSISTANT 12/29/19 10/27/23 Monet Silver, [facility]- [address], [address] [place] [address] PCP - General Nurse Practitioner Family 10/28/23 documented as of this encounter
--- OUTSIDE RECORDS SUMMARY | 2024-10-25 16:38 | XMS_ITS | Encounter Summary ---
Author Organization [facility] Address [facility] [place] [address] [place] [address] Care Team Providers Care Photo Technologist Name Role Phone Adrianne Monet Mccollum [facility] Primary Care Provider + Reason for Visit * Reason Comments Follow Up Left foot Encounter Details Date Type Department Care Team (Late st Contact Info) Description 04/22/2024 10:00 AM CDT Office Visit [facility] Orthopedic & Sports Medicine - [place] [address] [place] [address] China Zuleta MD [address] [place] [address] Follow Up (Left foot) Social History Tobacco Use Types Packs/Day Years [...] Sign Reading Time Taken Comments Blood Pressure 100/63 04/22/2024 9:49 AM CDT Pulse 79 04/22/2024 9:49 AM CDT Temperature 36.2 ??C (97.1 ??F) 04/22/2024 9:49 AM CD T Respiratory Rate - - Oxygen Saturation - - Inhaled Oxygen Concentration - - Weight 81.5 kg (179 lb 9.6 oz) 04/22/2024 9:49 A M CDT Height - - Body Mass Index 25.05 04/01/2024 8:22 AM CDT documented in this encounter Progress Notes * China Zuleta MD - 04/22/2024 10:00 AM CDT Images from the original note were not included. Office Visit Reason for Visit: Follow Up (Left foot) History of Present Illness: She had prior pain in the left foot last fall while playing softball for [employer]. He did reasonably well in the off season just doing her weights program over the winter. The primary season is in the spring. Her pain worsened during the spring season. This was really just noticeable when running. Whenshe was at rest or doing weights activities or walking she had no pain. She was treated in the boot when outside of her supple activities for period of time. She is not sure if this helped at all. She was seen by Dr. Boland and an MRI was obtained on 03/31/2024. Says she is able to compete still, although she has this persistent pain at the plantar forefoot. No therapy or other interventions. Vitals: Filed Vitals: 04/22/24 0949 BP: 100/63 Pulse: 79 Temp: 97.1 ??F (36.2 ??C) Weight: 81.5 kg (179 lb 9.6 oz) Physical Exam: Physical Exam Constitutional: She is oriented to person, place, and time. She appears well- developed and well-nourished. HENT: Head: Normocephalic. Eyes: EOM are normal. Cardiovascular: Extremities perfused. Pulmonary/Chest: Effort normal. No respiratory distress. Neurological: She is alert and oriented to person, place, and time. Psychiatric: She has a normal mood and affect. Ortho: On exam she has normal foot posture. Neutral heel alignment. She does have mild hallux valgus on the left side. She also has elevated left fifth toe which is chronic. He is tender at the tibial sesamoid on the left foot. She has no restriction of the hallux MTP joint motion. She does have mild tenderness at the second metatarsal head plantarly and at the fibular sesamoid. Certainly more tender atthe tibial sesamoid. She has restricted ankle motion with dorsiflexion to just neutral or 1 or 2 degrees past neutral with the knee extended. This improves to 15 degrees ankle dorsiflexion with the knee flexed. X-rays and MRI are reviewed. The x-ray shows a bipartite tibial sesamoid perhaps a tibial sesamoid fracture. The MRI is reviewed from 03/31/2024. This shows some edema within and around the tibial sesamoid. Read as sesamoiditis by the radiologist. There is minimal edema within the tibial sesamoid bone itself. No image results found. Assessment: Tibial sesamoiditis left foot Gastrocnemius contracture Plan: Talked with the patient about the diagnosis and treatment options. I showed her how to do calf stretching. I want her to do this really regularly over the next couple of months, incorporating this into her daily routine. Carbon fiber inserts also were ordered to be used for when she is more active either in her softball cleat or tennis shoes. Follow-up in 3 months for repeat examination and x-rays 3 views left foot. Procedures Summary: There are no diagnoses linked to this encounter. ROS: ROS Medications: Current Outpatient Medications: busPIRone (BUSPAR) 15 MG tablet, TAKE 1 TABLET(15 MG) BY MOUTH TWICE DAILY, Disp: 90 tablet, Rfl: 0 drospirenone-ethinyl estradiol (KISHOR) 3-0.02 MG tablet, Take 1 tablet by mouth daily., Disp: 84 tablet, Rfl: 0 hydrOXYzine (ATARAX) 10 MG tablet, Take 1 tablet (10 mg total) by mouth 3 (three) times daily as needed for Itching., Disp: 30 tablet, Rfl: 5 Allergies: No Known Allergies Medical History: Past Medical History: Diagnosis Date Allergy seasonal Anxiety Surgical History: History reviewed. No pertinent surgical history. Social History: Social History Socioeconomic History Marital status: Single Tobacco Use Smoking status: Never Smokeless tobacco: Never Vaping Use Vaping status: Never Used Substance and Sexual Activity Alcohol use: No Drug use: No Sexual activity: Never Social History Narrative Lives with parents and siblings Family History: Family History Problem Relation Name Age of Onset Diabetes Father Aren CHINA ZULETA MD 04/22/2024 Provider Attestation: I, CHINA ZULETA MD, personally performed the services described in thisdocumentation. All medical record and diagnosis entries made by the scribe were at my direction andin my presence. I have reviewed the chart and agree that the record reflects my personal performance and is accurate and complete. documented in this encounter Plan of Treatment Not on file documented as of this encounter Visit Diagnoses Diagnosis Sesamoiditis of left foot- Primary documented in this encounter Additional Health Concerns Assessment Noted Time PHQ-9 Depression Total Score: 0 10/28/19 24 4:50 PM POLYGRAPH EXAMINER documented as of this encounter Care Teams Photo Technologist Relationship Specialty Start Date End Date Monet Silver, PROPOSAL DIRECTOR- [address] [facility], [address] [place] [address] PCP - General Nurse Practitioner Family 10/28/23 documented as of this encounter
--- OUTSIDE RECORDS SUMMARY | 2024-10-25 16:38 | XMS_ITS | Encounter Summary ---
Author Organization [facility] Address [address] [place] [address]. [place] [address] [place] [address] Care Team Providers Care Roll On Man Name Role Phone Unavailable Primary Care Provider Unavailabl e Encounter Details Date Type Department Care Team (Late st Contact Info) Description 08/23/2005 Abstract [facility] [address] [place] [address] Ashlee Prasad MD [address] [place] [address] Social History Tobacco Use Types Packs/Day Years [...]
--- OUTSIDE RECORDS SUMMARY | 2024-10-25 16:38 | XMS_ITS | Encounter Summary ---
Author Organization [facility] Address [address] [place] [address]. [place] [address] [place] [address] Care Team Providers Care Package Delivery Driver Name Role Phone Unavailable Primary Care Provider Unavailabl e Encounter Details Date Type Department Care Team (Late st Contact Info) Description 04/28/2018 Abstract [facility] Medical Group Family & Internal Medicine [facility] [address] [place] [address] Lena Brown MD Social History Tobacco Use Types Packs/Day Years Used Date Smoking Tobacco: Never Assessed Comments Unknown Sex and Gender Information Value Date Recorded Sex Assigned at Not on file Legal Sex Female 6:09 PM CDT Gender Identity Not on file Sexual Orientation Not on file documented as of this encounter Last Filed Vital Signs Vital Sign Reading Time Taken Comments Blood Pressure 124/68 04/28/2018 1:23 PM CDT Pulse 85 04/28/2018 1:23 PM CDT Temperature - - Respiratory Rate - - Oxygen Saturation - - Inhaled Oxygen Concentration - - Weight 65.8 kg (145 lb) 04/28/2018 1:23 PM CDT Height 172.7 cm (5' 8 ) 04/28/2018 1:23 PM CDT Body Mass Index 22.05 04/28/2018 1:23 PM CDT Body Mass Index Percentile 80.85% 04/28/2018 1:2 3 PM CDT Growth Chart: CDC (Girls, 2- 20 Years) documented in this encounter Progress Notes * Hedy Lyels PRECISION LAYOUT WORKER - 04/28/2018 1:20 PM CDT Reason For Visit New Patient Visit, Health Architecture Intern Complaint Pt. is here to establish care with Hedy. She is here with her mother and her older sister. [facility] Pt. is needing a sports physical done for school. History of Present Illness PHQ-2 Depression Questionnaire: Over the past 2 weeks, how often have you been bothered by the following problems? 1.) Little interest or pleasure in doing things? Not at all. 2.) Feeling down, depressed or hopeless? Not at all. TOTAL SCORE: 0. Negative Screening REALM SF: Date: 04/28/2018 Examiner: LYDIA Grade Completed: HIGH SCHOOL Reading Level: 7 Can Pronounce: Menopause, Antibiotics, Exercise, Jaundice, Rectal, Anemia, Behavior Unable to Pronounce: HPI Free Text: 12 year old WF presents to clinic today with her mother and sister. She is starting in 8th grade and playing softball and basketball, needing a physical form filled out today for sports. She is up to date on vaccinations and has had the first menactra. Patient and mother deny any complaints or concerns today. Review of Systems Constitutional: negative. Head and Face: negative. Eyes: negative. ENT: negative. Cardiovascular: negative. Respiratory: negative. Gastrointestinal: negative. Genitourinary: negative. Musculoskeletal: negative. Neurological: negative. Psychiatric: negative. Endocrine: negative. Hematologic and Lymphatic: negative. ROS reported by the patient. Surgical History 1. no history of surgery Family History Father 1. Family history of diabetes mellitus (V18.0) (Z83.3) 2. Family history of hypertension (V17.49) (Z82.49) Social History ?? Dental care, regularly ?? twice per year ?? Does not have living will ?? Does not use illicit drugs (V49.89) (Z78.9) ?? Exercises regularly ?? play basketball and softball ?? House ?? Lives with parents () ?? Never a smoker ?? No alcohol use ?? No secondhand smoke exposure (V49.89) (Z78.9) ?? Occasional caffeine consumption ?? tea occasionally ?? Older siblings ?? one sister ?? Single ?? Student ?? 8th grade Allergies 1. No Known Drug Allergies Vitals Recorded: [id number] 01:23PM Temperature 98.5 F Heart Rate 85 Respiration 16 Systolic 124 Diastolic 68 O2 Saturation 99 Height 5 ft 8 in Weight 145 lb BMI Calculated 22.05 BSA Calculated 1.78 BMI Percentile 80 % 2-20 Stature Percentile 99 % 2-20 Weight Percentile 92 % Physical Exam Constitutional - General appearance: No acute distress, well appearing and well nourished.. Eyes - Conjunctiva and lids: No injection, edema or discharge. Pupils and irises: Equal, round, reactive to light bilaterally.. Ears, Nose, Mouth, and Throat - External inspection of ears and nose: Normal without deformities ordischarge. Otoscopic examination: Tympanic membranes pablo, translucent with good bony landmarks andlight reflex. Canals patent without erythema. Hearing: Normal. Nasal mucosa, septum, and turbinates: Normal, no edema or discharge. Lips, teeth, and gums: Normal, good dentition. Oropharynx: Moist mucosa, normal tongue and tonsils without lesions.. Neck - Neck: Supple, symmetric, no masses.. Pulmonary - Respiratory effort: Normal respiratory rate and rhythm, no increased work of breathing.Auscultation of lungs: Clear bilaterally.. Cardiovascular - Auscultation of heart: Regular rate and rhythm, normal S1 and S2, no murmur. Peripheral vascular exam: Normal. Examination of extremities for edema and/or varicosities: Normal.. Abdomen - Abdomen: Normal bowel sounds, soft, non-tender, no masses. Liver and spleen: No hepatomegaly or splenomegaly. Examination for hernias: No hernias palpated.. Musculoskeletal - Gait and station: Normal gait. Digits and nails: Normal without clubbing or cyanosis. Inspection/palpation of joints, bones, and muscles: Normal. Evaluation for scoliosis: No scoliosis on exam. Range of motion: Normal. Stability: No joint instability. Muscle strength/tone: Normal.. Skin - Palpation of skin and subcutaneous tissue: No rash or lesions.. Neurologic - Cranial nerves: Normal. Reflexes: Normal. Sensation: Normal. Coordination: Normal.. Psychiatric - judgment and insight: Normal. Orientation to person, place, and time: Normal. Recent and remote memory: Normal. Mood and affect: Normal.. Assessment 1. Well child visit (V20.2) (Z00.129) 2. BMI 22.0-22.9, adult (V85.1) (Z68.22) Plan Physical form filled out today and patient is up to date on vaccinations today. Recommend to see stab setter and driller. F/U annually and PRN. Recommended influenza vaccination in the fall. Signatures Electronically signed by : Hedy Lyles APN; Apr 29 2018 2:53PM TRANSIT OPERATOR (Author) documented in this encounter Plan of Treatment Not on file documented as of this encounter Visit Diagnoses Not on filedocumented in this encounter
--- OUTSIDE RECORDS SUMMARY | 2024-10-25 16:38 | XMS_ITS | Encounter Summary ---
Author Organization [facility] Address [facility] [place] [address] [place] [address] Care Team Providers Care Infant And Toddler Teacher Name Role Phone Unavailable Primary Care Provider Unavailabl e Encounter Details Date Type Department Care Team (Late st Contact Info) Description 09/29/2015 Abstract [facility] Diagnostic Imaging [address] [place] [address] Jeffrey Galloway MD [address] [place] [address] Social History Tobacco Use Types Packs/Day Years [...] encounter Visit Diagnoses Diagnosis Pain in left ankle Pain in joint, ankle and foot documented in this encounter
--- OUTSIDE RECORDS SUMMARY | 2024-10-25 16:38 | XMS_ITS | Encounter Summary ---
Author Organization [facility] Address [address] [place] [address]. [place] [address] [place] [address] Care Team Providers Care Sprue Knocker Name Role Phone Christina Reid Primary Care Provider [phone] Encounter Details Date Type Department Care Team (Latest Contact Info) Description 07/18/2022 Travel Social History Tobacco Use Types Packs/Day [...] Total Score: 0 12/13/19 22 3:57 PM TECHNICAL PROPOSAL WRITER documented as of this encounter Care Teams Sprue Knocker Relationship Specialty [place] [address] [place] [address] PCP - General PHYSICIAN FIELD PIPE LINES SUPERVISOR 12/29/19 10/27/23 documented as of this encounter
--- OUTSIDE RECORDS SUMMARY | 2024-10-25 16:38 | XMS_ITS | Encounter Summary ---
Author Organization [facility] Address [address] [place] [address]. [place] [address] [place] [address] Care Team Providers Care Sales Project Manager Name Role Phone Christina Reid Primary Care Provider [phone] Encounter Details Date Type Department Care Team (Latest Contact Info) Description 12/29/2019 Travel Social History Tobacco Use Types Packs/Day [...] on filedocumented in this encounter Care Teams Sales Project Manager Relationship Specialty [place] [address] [address] [place], [place] [id number] PCP - General PHYSICIAN RIGHT OF WAY MAN 12/29/19 10/27/23 documented as of this encounter
--- OUTSIDE RECORDS SUMMARY | 2024-10-25 16:38 | XMS_ITS | Encounter Summary ---
Author Organization [facility] Address [facility] [place] [address] [place] [address] Care Team Providers Care Farm Machinery Erector Name Role Phone Unavailable Primary Care Provider Unavailabl e Encounter Details Date Type Department Care Team (Late st Contact Info) Description 07/08/2010 Abstract [facility] [address] [place] [address] Monique Fair MD [address] [place], [place] [id number] Social History Tobacco Use Types Packs/Day Years [...]
--- OUTSIDE RECORDS SUMMARY | 2024-10-25 16:38 | XMS_ITS | Encounter Summary ---
Author Organization [facility] Address Replaced by [facility] [place] [address] [place] [address] Care Team Providers Care Cleaner And Trimmer Name Role Phone Christina Reid Primary Care Provider Reason for Visit * Reason Comments School Physical Sports- sophomore Encounter Details Date Type Department Care Team (Late st Contact Info) Description 06/08/2020 4:00 PM CDT Office Visit [facility] Medical Group Family & Internal Medicine [facility] [address] [place] [address] Christina Reid [place] [id number] [place] [address] School Physical (Sports- sophomore ) Social History Tobacco Use Types Packs/Day [...] Sign Reading Time Taken Comments Blood Pressure 98/74 06/08/2020 4:04 PM CDT Pulse 87 06/08/2020 4:04 PM CDT Temperature 37.2 ??C (98.9 ??F) 06/08/2020 4:04 PM CD T Respiratory Rate 16 06/08/2020 4:04 PM CDT Oxygen Saturation 98% 06/08/2020 4:04 PM CDT Inhaled Oxygen Concentration - - Weight 71.8 kg (158 lb 3.2 oz) 06/08/2020 4:04 P M CDT Height 175.3 cm (5' 9 ) 06/08/2020 4:04 PM CDT Body Mass Index 23.36 06/08/2020 4:04 PM CDT Body Mass Index Percentile 80.14% 06/08/2020 4:0 4 PM CDT Growth Chart: [facility] (Girls, 2- 20 Years) documented in this encounter Progress Notes * CHAPARRITA Rodriguez - 06/08/2020 4:00 PM CDT Images from the original note were not included. Office Progress Note Encounter Date: 06/08/2020 Reason for Visit: School Physical (Sports- sophomore ) Physical for basketball possibly softball Patient reports she did the echocardiogram screening through the [facility] and hada normal exam. History of Present Illness: Azalia Neri is a 14-year-old female here for Well Child Exam. Doing well currently with no complaints Hx of asthma: No Hx of seizure d/o: No Hx of food allergy: No Family hx of at young age: No Well Child 12-18 Year ROS: Feeling well. Denies headaches, vision or hearing [...] weight gain or loss. No fatigue. Medications: Current Outpatient Medications: ??? loratadine 10 MG tablet, Take 10 mg by mouth as needed. , Disp: , Rfl: ??? Ngvgqtbvonveoim-OG-ZW-APAP (DAYQUIL LIQUICAPS OR), Take 2 tablets by mouth as needed., Disp: , Rfl: Allergies: No Known Allergies Medical History: Past Medical History: Diagnosis Date ??? Allergy seasonal Surgical History: No past surgical history on file. Social History: Social History Tobacco Use ??? Smoking status: Never Smoker ??? Smokeless tobacco: Never Used Substance Use Topics ??? Alcohol use: No Frequency: Never ??? Drug use: No Family History: Family History Problem Relation Name Age of Onset ??? Diabetes Father PE: Filed Vitals: 06/08/20 1604 BP: (!) 98/74 Pulse: 87 Resp: 16 Temp: 98.9 ??F (37.2 ??C) TempSrc: Oral SpO2: 98% Weight: 71.8 kg (158 lb 3.2 oz) Height: 5' 9 (1.753 m) Body mass index is 23.36 kg/m??. 80 %ile (Z= 0.85) based on CDC (Girls, 2-20 Years) BMI-for-age based on BMI available as of 06/08/2020. Physical Exam Constitutional: Patient is oriented to [...] The behavior is normal. Thought content normal. Diagnoses/Impression: 1. Sports physical Recommendations and Plan: There are no diagnoses linked to this encounter. Discussed with patient that she is in good physical health. Completed school sports physical without restrictions, signed and returned to pt. Recommended yearly flu vaccine, HPV vaccine series, and meningococcal. Discussed with the pt about accident precaution: wearing helmet while biking, no riskyactivities; also avoid etoh, drugs and friends that do such; internet safety. Aerobic exercise 3x/wk, diet with many fresh fruits and vegetables. Pt expressed understanding. We talked about avoiding tobacco, alcohol and drugs. she knows to follow-up for her regular annual physical next year. Vaccines reviewed and updated as patient and parent willing. Please see HM tab for full record See form No orders of the defined types were placed in this encounter. CHAPARRITA RODRIGUEZ 06/08/2020 Cosigned by Buddy Allen MD at 06/08/2020 7:31 PM CDT documented in this encounter Plan of Treatment Not on file documented as of this encounter Visit Diagnoses Diagnosis Sports physical- Primary Other general medical examination for administrative purposes documented in this encounter Care Teams Cleaner And Trimmer Relationship Specialty [place] [address] [place] [address] PCP - General PHYSICIAN FLIGHT TEST ENGINEER 12/29/19 10/27/23 documented as of this encounter
--- OUTSIDE RECORDS SUMMARY | 2024-10-25 16:38 | XMS_ITS | Encounter Summary ---
Author Organization [facility] Address [facility] [facility] [place] [address] [place] [address] Care Team Providers Care Branch Associate Name Role Phone Monet Silver Primary Care Provider + Reason for Referral * Imaging (Routine) - New Request Specialty Diagnoses / Procedures Referred By Vangie ash Referred To Contact Diagnoses Palpitations Procedures HOLTER MONITOR (ECG) UP TO 48 HRS COMPLETE Monet Silver FNP-BC [address], [address] [place] [id number] Phone: tel: fax: Referral ID Status Reason Start Date Expiration Date V isits Requested Visits Authorized [id number] New Request 10/28/2023 11/26/2024 1 1 ORMANCE MAKEUP ARTIST * Imaging (Routine) - New Request Specialty Diagnoses / Procedures Referred By Vangie ash Referred To Contact RADIOLOGY Diagnoses Palpitations Procedures USE ECHOCARDIOGRAM Monet Silver FNP-BC [address], [address] [place] [id number] Phone: tel: fax: Referral ID Status Reason Start Date Expiration Date V isits Requested Visits Authorized [id number] New Request 10/28/2023 10/28/2024 1 1 ORMANCE MAKEUP ARTIST Reason for Visit * Reason Comments Medication Follow up medication Encounter Details Date Type Department Care Team (Late st Contact Info) Description 10/28/2023 4:40 PM PERFORMANCE MAKEUP ARTIST Office Visit [facility] Medical Group Family & Internal Medicine [facility] [address] [place] [address] Monet Silver FNP-BC [address] [facility] [address] [place] [address] Medication (Follow up medication) Social History Tobacco Use Types Packs/Day Years [...] Sign Reading Time Taken Comments Blood Pressure 115/76 10/28/2023 4:46 PM PERFORMANCE MAKEUP ARTIST Pulse 75 10/28/2023 4:46 PM PERFORMANCE MAKEUP ARTIST Temperature 36.3 ??C (97.3 ??F) 10/28/2023 4:46 PM CS T Respiratory Rate 16 10/28/2023 4:4 6 PM PERFORMANCE MAKEUP ARTIST Oxygen Saturation 99% 10/28/2023 4:46 PM PERFORMANCE MAKEUP ARTIST Inhaled Oxygen Concentration - - Weight 75.7 kg (166 lb 12.8 oz) 10/28/2023 4:46 PM PERFORMANCE MAKEUP ARTIST Height 180.3 cm (5' 11 ) 10/28/2023 4:46 PM PERFORMANCE MAKEUP ARTIST Body Mass Index 23.26 10/28/2023 4:46 PM PERFORMANCE MAKEUP ARTIST Body Mass Index Percentile 68.53% 10/28/2023 4:4 6 PM PERFORMANCE MAKEUP ARTIST Growth Chart: [facility] (Girls, 2- 20 Years) documented in this encounter Patient Instructions * Attachments The following attachments cannot be sent through Care Everywhere. * Hydroxyzine, ADULT (Nepalese) documented in this encounter Progress Notes * Monet Silver, GENERAL MANAGER LAND DEPARTMENT-BC - 10/28/2023 4:40 PM CST Reason for Visit: Medication (Follow up medication) History of Present Illness: Azalia Neri is a healthy 17-year-old female who presents to the clinic today for follow up of anxiety. She presents with her mother today. She reports compliance with buspirone. She thinks it has helped some with anxiety. She c/o episodes of palpitations and elevated HR >100. She has noticed subsequent anxiety and then further increase in HR up to 170s. This occurs at rest mostly. Since being at home on break from school it has occurred 1-2 times per week and was maybe once monthly previously. She has associated nausea, but denies dizziness, chest pain/pressure or dizziness. She had an EKG in 2019 that showed NSR, but no further work up. Current Outpatient Medications on File Prior to Visit Medication Sig Dispense Refill busPIRone (BUSPAR) 15 MG tablet TAKE 1 TABLET(15 MG) BY MOUTH TWICE DAILY 90 tablet 0 No current facility-administered medications on file prior to visit. Review of patient's allergies indicates: No Known Allergies Past Medical History: Diagnosis Date Allergy seasonal Anxiety History reviewed. No pertinent surgical history. Social History Socioeconomic History Marital status: Single Tobacco Use Smoking status: Never Smokeless tobacco: Never Vaping Use Vaping Use: Never used Substance and Sexual Activity Alcohol use: No Drug use: No Sexual activity: Never Social History Narrative Lives with parents and siblings Family History Problem Relation Name Age of Onset Diabetes Father Aren Review of Systems Constitutional: Negative. Respiratory: Negative. Cardiovascular: Positive for palpitations. Tachycardia Gastrointestinal: Positive for nausea. Neurological: Negative for dizziness. Psychiatric/Behavioral: The patient is nervous/anxious. Physical exam: Filed Vitals: 10/28/23 1646 BP: 115/76 Pulse: 75 Resp: 16 Temp: 97.3 ??F (36.3 ??C) TempSrc: Temporal SpO2: 99% Weight: 75.7 kg (166 lb 12.8 oz) Height: 1.803 m (5' 11 ) Body mass index is 23.26 kg/m??. Physical Exam Vitals reviewed. Constitutional: General: She is not in acute distress. Appearance: Normal appearance. She is not toxic-appearing. HENT: Head: Normocephalic. Mouth/Throat: Mouth: Mucous membranes are moist. Eyes: General: No scleral icterus. Conjunctiva/sclera: Conjunctivae normal. Pupils: Pupils are equal, [...] No wheezing, rhonchi or rales. Abdominal: General: There is no distension. Musculoskeletal: Right lower leg: No edema. Left lower leg: No edema. Skin: General: Skin is warm and dry. Capillary Refill: Capillary refill takes less than 2 seconds. Findings: No lesion or rash. Neurological: General: No focal deficit present. Mental Status: She is alert. Mental status is at baseline. Psychiatric: Attention and Perception: Attention and perception normal. She does not perceive auditory or visualhallucinations. Mood and Affect: Mood normal. Speech: Speech normal. Speech is not rapid and pressured, slurred or tangential. Behavior: Behavior normal. Behavior is not hyperactive. Behavior is cooperative. Thought Content: Thought content normal. Cognition and Memory: Cognition and memory normal. Judgment: Judgment normal. Judgment is not inappropriate. Lab Results Component Value Date/Time WBC 5.23 10/23/2022 09:49 AM RBC 4.51 10/23/2022 09:49 AM HGB 13.1 10/23/2022 09:49 AM HCT 40.0 (H) 10/23/2022 09:49 AM PLT 213 10/23/2022 09:49 AM Lab Results Component Value Date/Time TSH 1.213 10/23/2022 09:49 AM Lab Results Component Value Date/Time CHOL 107 10/23/2022 09:49 AM LDL 52 10/23/2022 09:49 AM HDL 45 10/23/2022 09:49 AM NHDLC 62 10/23/2022 09:49 AM TRI 49 10/23/2022 09:49 AM VLDL 10 10/23/2022 09:49 AM CHOLRAT 2.4 10/23/2022 09:49 AM Lab Results Component Value Date/Time NA 140 10/23/2022 09:49 AM K 4.1 10/23/2022 09:49 AM CL 103 10/23/2022 09:49 AM CO2 26.6 10/23/2022 09:49 AM AGAP 10.4 10/23/2022 09:49 AM BUN 10 10/23/2022 09:49 AM CR 0.68 10/23/2022 09:49 AM BUNCREATININ 14.7 10/23/2022 09:49 AM GFREST NOT CALCULATED 10/23/2022 09:49 AM CA 9.0 10/23/2022 09:49 AM TP 7.7 10/23/2022 09:49 AM ALB 4.1 10/23/2022 09:49 AM TBIL 0.7 10/23/2022 09:49 AM ALKP 48 (L) 10/23/2022 09:49 AM AST 14 (L) 10/23/2022 09:49 AM ALT 8 (L) 10/23/2022 09:49 AM AGRATIO 1.1 10/23/2022 09:49 AM Assessment: Encounter Diagnose(s) ICD-10-CM SNOMED CT(R) 1. Palpitations R00.2 PALPITATIONS TSH W/REFLEX COMPREHENSIVE METABOLIC PANEL MAGNESIUM CBC, AUTO, NO DIFF USE ECHOCARDIOGRAM HOLTER MONITOR (ECG) UP TO 48 HRS COMPLETE 2. Tachycardia R00.0 TACHYCARDIA 3. Anxiety F41.9 ANXIETY hydrOXYzine (ATARAX) 25 MG tablet Plan: Chronic anxiety. New c/o palpitations and tachycardia. Check TSH, CMP, magnesium, CBC, echocardiogram and 48 hour event monitor given c/o HR >170 at rest. Suspect symptoms related to anxiety, but will rule out underlying metabolic disorder and cardiac disease given frequency. Continue buspirone 15 mg BID. Trial hydroxyzine 25 mg PO Q8 hours PRN anxiety. Medications were reviewed and reconciled. The patient was counseled on appropriate use of medication as well as about potential side effects. Patient verbalized understanding and agrees with treatment plan. Follow up FU pending labs and imaging. RADHA DILLON 10/28/2023 5:29 PM I spent 20 minutes today reviewing the patient's medical record, obtaining history, performing an exam, ordering medications, tests and/or procedures, documenting in the medical record, referring and/or communicating with other health care providers, counseling and educating the patient/family/caregiver. This includes time spent prior to the visit and after the visit in direct care of patient. Reviewing and communicating test results & coordination of care. ORMANCE MAKEUP ARTIST documented in this encounter Plan of Treatment Scheduled Orders Name Type Priority Associated Diagnoses Orde r Schedule TSH W/REFLEX Lab Routine Palpitations Expected: 10/28/2023, Expires: 10/27/2024 COMPREHENSIVE METABOLIC PANEL Lab Routine Palpitations Expected: 10/28/2023, Expires: 10/27/2024 MAGNESIUM Lab Routine Palpitations Expected: 10/28/2023, Expires: 10/27/2024 CBC, AUTO, NO DIFF Lab Routine Palpitations Expected: 10/28/2023, Expires: 10/27/2024 USE ECHOCARDIOGRAM ECHO Routine Palpitations Expected: 10/28/2023, Expires: 10/28/2024 HOLTER MONITOR (ECG) UP TO 48 HRS COMPLETE EKG-NonRad Routine Palpitations Expected: 10/28/2023, Expires: 10/28/2024 documented as of this encounter Visit Diagnoses Diagnosis Palpitations- Primary Tachycardia Tachycardia, unspecified Anxiety Anxiety state, unspecified documented in this encounter Additional Health Concerns Assessment Noted Time PHQ-9 Depression Total Score: 0 10/28/19 4:50 PM PERFORMANCE MAKEUP ARTIST documented as of this encounter Care Teams Branch Associate Relationship Specialty Start Date End Date Monet Silver FNP-BC [address], [address] [place] [phone] PCP - General Nurse Practitioner Family 10/28/23 documented as of this encounter
--- OUTSIDE RECORDS SUMMARY | 2024-10-25 16:38 | XMS_ITS | Encounter Summary ---
Author Organization [facility] Address [address] [place] [address]. [place] [address] [place] [address] Care Team Providers Care Stress Engineer Name Role Phone Christina Reid Primary Care Provider [phone] Encounter Details Date Type Department Care Team (Latest Contact Info) Description 11/20/2022 Travel Social History Tobacco Use Types Packs/Day [...] suspected to have Coronavirus/COVID-19? No / Unsure 11/20/2022 2:[address] REPORTER documented as of this encounter Plan of Treatment Not on file documented as of this encounter Visit Diagnoses Not on filedocumented in this encounter Additional Health Concerns Assessment Noted Time PHQ-9 Depression Total Score: 0 12/13/19 22 3:[address] REPORTER documented as of this encounter Care Teams Stress Engineer Relationship Specialty [place] [address] [place] [address] PCP - General PHYSICIAN TELETYPE CLERK 12/29/19 10/27/23 documented as of this encounter
--- OUTSIDE RECORDS SUMMARY | 2024-10-25 16:38 | XMS_ITS | Encounter Summary ---
Author Organization [facility] Address Formerly [facility], [facility] [place] [address] [place] [address] Care Team Providers Care Pre Press Proofer Name Role Phone Monet Silver [facility] Primary Care Provider + Reason for Visit * Reason Onset Date Comments Information 03/19/2024 Encounter Details Date Type Department Care Team (Late st Contact Info) Description 03/19/2024 Telephone [facility] Medical [facility] Orthopedic & Sports Medicine - [place] [address] [place] [address] Elias Boland MD [address] [place] [address] Information Social History Tobacco Use Types Packs/Day Years [...] as of this encounter Progress Notes * Stephanie Everett RN - 03/23/2024 10:54 AM CDT I do not see that Tameka called to make her an appointment. Called patient and had to leave a message for her to call us back to schedule. She will be a new patient for Dr Garcia. Unsure how urgent this is though since that was not in the instructions. * Tameka Gonzalez RN - 03/20/2024 3:44 PM CDT We will schedule appt with Dr Garcia once MRI is complete. * Rosemary Marcelino MA - 03/19/2024 4:27 PM CDT Called patient to inform her of the MRI that ordered. Pt stated she was already contacted by [facility] and scheduled for the MRI on 03/31. I informed her we would place a task to Dr. Garcia's nursing team to help assist for follow up. Pt v/u and thanked us. documented in this encounter Plan of Treatment Not on file documented as of this encounter Visit Diagnoses Not on filedocumented in this encounter Additional Health Concerns Assessment Noted Time PHQ-9 Depression Total Score: 0 10/28/19 4:50 PM AUTOMOTIVE SALES EXECUTIVE documented as of this encounter Care Teams Pre Press Proofer Relationship Specialty Start Date End Date Monet Silver, [facility]- [address], [address] [place] [address] PCP - General Nurse Practitioner Family 10/28/23 documented as of this encounter
--- OUTSIDE RECORDS SUMMARY | 2024-10-25 16:38 | XMS_ITS | Encounter Summary ---
Author Organization [facility] Address [address] [place] [address]. [place] [address] [place] [address] Care Team Providers Care Credit Controller Name Role Phone Unavailable Primary Care Provider Unavailabl e Reason for Visit * Reason Comments Chest Pain upper central Encounter Details Date Type Department Care Team (Late st Contact Info) Description 10/19/2019 11:16 AM STATEMENT SERVICES REPRESENTATIVE - 10/19/2019 12:02 PM [facility] Emergency [facility] Emergency Room [address] [place] [address] Brandyn Ingram PA [address] [place] [id number] Chest Pain (upper central) Discharge Disposition: Home or Self Care (Routine [...] Sign Reading Time Taken Comments Blood Pressure 102/57 10/19/2019 11:19 AM STATEMENT SERVICES REPRESENTATIVE Pulse 77 10/19/2019 11:19 AM STATEMENT SERVICES REPRESENTATIVE Temperature 36.2 ??C (97.2 ??F) 10/19/2019 11:[address] Respiratory Rate 16 10/19/2019 11:19 AM STATEMENT SERVICES REPRESENTATIVE Oxygen Saturation 100% 10/19/2019 11:19 AM STATEMENT SERVICES REPRESENTATIVE Inhaled Oxygen Concentration - - Weight 71.7 kg (158 lb) 10/19/2019 11:19 AM STATEMENT SERVICES REPRESENTATIVE Height 175.3 cm (5' 9 ) 10/19/2019 11:19 AM STATEMENT SERVICES REPRESENTATIVE Body Mass Index 23.33 10/19/2019 11:19 AM STATEMENT SERVICES REPRESENTATIVE Body Mass Index Percentile 82.21% 10/19/2019 11: 19 AM STATEMENT SERVICES REPRESENTATIVE Growth Chart: [facility] (Girls, 2- 20 Years) documented in this encounter Discharge Instructions * Discharge Instructions* CHAPARRITA Anaya - 10/19/2019 11:57 AM STATEMENT SERVICES REPRESENTATIVE Use zgul-ojp-ulkaqka ibuprofen as directed for pain. Follow-up with primary care provider in 5 to 7days. Return emergency department symptoms worsen or new concerns. EMENT SERVICES REPRESENTATIVE * Attachments The following attachments cannot be sent through Care Everywhere. * Chest Pain in Children and Teens Discharge Instructions (Peruvian) documented in this encounter Medications at Time of Discharge loratadine 10 MG tablet Take 10 mg by mouth as needed. 12/13/2021 documented as of this encounter ED Notes * CHAPARRITA Anaya - 10/19/2019 11:29 AM CST ED NOTE Chief Complaint Chief Complaint Patient presents with ??? Chest Pain upper central History of Present Illness 13-year-old female presenting to urgent care with complaint of chest discomfort that started yesterday. Describes as burning sensation to mid upper chest. Worsened with taking a deep breath and coughing. Some relief with ibuprofen. No history of this in the past. Patient has had recent nonproductive cough. Denies fever, chills, body aches, hemoptysis, chest pain with exertion, palpitations or lightheadedness. Patient does not take any medications on a regular basis. Denies history of DVT/PE. Noother complaints at this time. Medical History ALLERGIES: No Known Allergies MEDICATIONS: Prior to Admission medications Medication Sig Start Date End Date Taking? Authorizing Provider loratadine 10 MG tablet Take 10 mg by mouth daily. Yes Doc Abstract PAST MEDICAL HISTORY: History reviewed. No pertinent past medical history. PAST SURGICAL HISTORY: History reviewed. No pertinent surgical history. FAMILY HISTORY: No family history on file. SOCIAL HISTORY: Social History Tobacco Use ??? Smoking status: Never Smoker ??? Smokeless tobacco: Never Used Substance Use Topics ??? Alcohol use: No Frequency: Never ??? Drug use: No Review of Systems Review of Systems Constitutional: Negative for activity change and appetite change. HENT: Negative for congestion, ear discharge, ear pain and sore throat. Respiratory: Positive for cough. Negative for shortness of breath. Cardiovascular: Positive for chest pain. Gastrointestinal: Negative for abdominal pain, nausea and vomiting. Musculoskeletal: Negative for back pain and neck pain. Neurological: Negative for dizziness, syncope and light-headedness. Physical Exam Filed Vitals: 10/19/19 1119 BP: (!) 102/57 Pulse: 77 Resp: 16 Temp: 97.2 ??F (36.2 ??C) TempSrc: Temporal SpO2: 100% Weight: 71.7 kg (158 lb) Height: 5' 9 (1.753 m) Physical Exam Constitutional: She is oriented to person, place, and time. She appears well- developed and well-nourished. No distress. HENT: Head: Normocephalic. Nose: Nose normal. Mouth/Throat: Oropharynx is clear and moist. Neck: Normal range of motion. Neck supple. Cardiovascular: Normal rate, regular rhythm and normal heart sounds. Pulmonary/Chest: Effort normal and breath sounds normal. No respiratory distress. She has no wheezes. Musculoskeletal: Normal range of motion. She exhibits no tenderness. Neurological: She is alert and oriented to person, place, and time. Skin: Skin is warm and dry. Psychiatric: She has a normal mood and affect. Her behavior is normal. Judgment and thought contentnormal. Nursing note and vitals reviewed. Diagnostic Studies / Procedures ELECTROCARDIOGRAMS: Results for orders placed or performed during the hospital encounter of 10/19/19 ECG 12 lead Narrative [facility] Test Date: 2019-10-19 Pat Name: AZALIA NERI Department: Room: EXAM 404 Gender: Female Building Supervisor: : 2005 Requested By: BRANDYN INGRAM Order Number: [id number] Britta MD: Measurements Intervals [place] Rate: 66 P: 12 MD: 180 QRS: 55 QRSD: 94 T: 42 QT: 399 QTc: 420 Interpretive Statements ..PEDIATRIC ECG INTERPRETATION SINUS RHYTHM WITH PROLONGED MD FOR AGE No previous ECG available for comparison LABORATORY STUDIES: No results found for this visit on 10/19/19. IMAGING STUDIES No orders to display ED Course / Medical Decision Making PERC negative. EKG with no acute abnormalities. Symptoms are worsened with taking a deep breath andcough, consistent with pleuritis. Vital signs within normal limits. Patient in no respiratory distress. Patient will follow-up with primary care provider. Medications - No data to display Clinical Impression Pleuritic chest pain (Primary) Current Discharge Medication List Disposition: Discharge Follow-Up: Hedy Lyles NP [address] [place] [address] [place] [address] Schedule an appointment as soon as possible for a visit in 1 week As needed CHAPARRITA Anaya 10/19/2019 CHAPARRITA Anaya 10/19/19 1157 Cosigned by Eric Judd MD at 10/20/2019 5:04 PM STATEMENT SERVICES REPRESENTATIVE EMENT SERVICES REPRESENTATIVE EMENT SERVICES REPRESENTATIVE * Alecia Finney RN - 10/19/2019 11:16 AM CST Patient states chest pain started last night, upper mid chest - describes it as sharp pain almost like a burn, intermittent pain 01/28 No n/v/d Has had cough for few days, non productive Pain a little worse with cough EMENT SERVICES REPRESENTATIVE documented in this encounter Plan of Treatment Not on file documented as of this encounter Procedures Procedure Name Priority Date/Time Associated Diagnosis Comments ECG 12-LEAD Routine 10/19/2019 11:32 AM STATEMENT SERVICES REPRESENTATIVE documented in this encounter Results * ECG 12 lead (10/19/2019 11:32 AM STATEMENT SERVICES REPRESENTATIVE) 10/19/2019 11:3 2 AM STATEMENT SERVICES REPRESENTATIVE Narrative [facility] RAD - 10/23/2019 11:18 PM STATEMENT SERVICES REPRESENTATIVE ? [facility] ? Test Date: ?2019-10-19 Pat Name: ? AZALIA NERI ?Department: ? Room: ? EXAM 404 Gender: ? Female ? Building Supervisor: ?? : ?2005 ? Requested By: BRANDYN INGRAM Order Number: [id number] ? Reading MD: ?? Teresa Aldridgelas ? Measurements Intervals ?[place] ? Rate: ? 66 ? P: ?12 MD: ? 180 ?QRS: ?55 QRSD: ? 94 ? T: ?42 QT: ? 399 ? QTc: ?420 ? Interpretive Statements ..PEDIATRIC ECG INTERPRETATION SINUS RHYTHM Upright T In V1 Or V2 Probable RVH EMENT SERVICES REPRESENTATIVE Procedure Note Teresa Trevino MD - 10/23/2019 [facility] Test Date: 2019-10-19 Pat Name: AZALIA NERI Department: Room: EXAM 404 Gender: Female Building Supervisor: : 2005 Requested By: BRANDYN INGRAM Order Number: [id number] Reading AMANDA Trevino Measurements Intervals [place] Rate: 66 P: 12 MD: 180 QRS: 55 QRSD: 94 T: 42 QT: 399 QTc: 420 Interpretive Statements ..PEDIATRIC ECG INTERPRETATION SINUS RHYTHM Upright T In V1 Or V2 Probable RVH EMENT SERVICES REPRESENTATIVE us Brandyn CHEATHAM ECG ORDERABLES Final Resul t [facility] ([facility]) RAD documented in this encounter Visit Diagnoses Diagnosis Pleuritic chest pain- Primary Painful respiration documented in this encounter
--- OUTSIDE RECORDS SUMMARY | 2024-10-25 16:38 | XMS_ITS | Encounter Summary ---
Author Organization [facility] Address [facility] [place] [address] [place] [address] Care Team Providers Care Director Of Market Intelligence Name Role Phone Moent Silver [facility] Primary Care Provider + Reason for Referral * Imaging (Urgent) - Closed Specialty Diagnoses / Procedures Referred By Contac t Referred To Contact RADIOLOGY Diagnoses Left foot pain Procedures MRI FOOT LT WO CON Héctor Dumas MD [address] [place] [address] Phone: tel:[phone] fax: Referral ID Status Reason Start Date Expiration Date Visits Re quested Visits Authorized [id number] Closed 03/19/2024 04/18/2025 1 1 Reason for Visit * Imaging (Urgent) - Closed Specialty Diagnoses / Procedures Referred By Contac t Referred To Contact RADIOLOGY Diagnoses Left foot pain Procedures MRI FOOT LT WO CON Héctor Dumas MD [address] [place] [address] Phone: tel: fax: Referral ID Status Reason Start Date Expiration Date Visits Re quested Visits Authorized [id number] Closed 03/19/2024 04/18/2025 1 1 Encounter Details Date Type Department Care Team (Latest Contact Info) Description 03/31/2024 8:09 AM CDT - 03/31/2024 11:59 PM CDT Hospital Encounter [facility] [address] [place] [address] Héctor Dumas MD [address] [place] [address] Discharge Disposition: Home or Self Care (Routine [...] tablet by mouth daily. 84 tablet 04/17/2024 documented as of this encounter Plan of Treatment Not on file documented as of this encounter Procedures Procedure Name Priority Date/Time Associated Diagnosis Comments MRI FOOT LT WO CON [place] 03/31/2024 9: 09 AM CDT Left foot pain documented in this encounter Results * MRI FOOT LT [...] this encounter Visit Diagnoses Diagnosis Left foot pain Pain in limb documented in this encounter Additional Health Concerns Assessment Noted Time PHQ-9 Depression Total Score: 0 10/28/19 4:50 PM FORDER OPERATOR documented as of this encounter Care Teams Director Of Market Intelligence Relationship Specialty Start Date End Date Monet Silver, HEAD TRANSFER CLERK- [address], [address] [place] [address] PCP - General Nurse Practitioner Family 10/28/23 documented as of this encounter
--- OUTSIDE RECORDS SUMMARY | 2024-10-25 16:38 | XMS_ITS | Encounter Summary ---
Author Organization [facility] Address [address] [place] [address]. [place] [address] [place] [address] Care Team Providers Care Dialer Name Role Phone Christina Reid Primary Care Provider [phone] Encounter Details Date Type Department Care Team (Latest Contact Info) Description 07/12/2023 Travel Social History Tobacco Use Types Packs/Day [...] Total Score: 0 12/13/19 22 3:57 PM GYNECOLOGICAL ASSISTANT documented as of this encounter Care Teams Dialer Relationship Specialty [place] [address] [place] [address] PCP - General PHYSICIAN AIRCRAFT ORDNANCE SYSTEMS MECHANIC 12/29/19 10/27/23 documented as of this encounter
--- OUTSIDE RECORDS SUMMARY | 2024-10-25 16:38 | XMS_ITS | Encounter Summary ---
Author Organization [facility] Address [facility] [place] [address] [place] [address] Care Team Providers Care Ms Sql Dba Name Role Phone Christina Reid Primary Care Provider [phone] Reason for Visit * Reason Comments Follow Up right ear feels clog ged, sinus infection improving Encounter Details Date Type Department Care Team (Late st Contact Info) Description 12/29/2019 1:40 PM CDT Office Visit [facility] Medical [facility] Family & Internal Medicine [facility] [address] [place] [address] Christina [place] [address] [place] [address] Follow Up (right ear feels clogged, sinus infection improving) Social History Tobacco Use Types Packs/Day Years [...] Sign Reading Time Taken Comments Blood Pressure 98/60 12/29/2019 1:42 PM CDT Pulse 88 12/29/2019 1:42 PM CDT Temperature - - Respiratory Rate 18 12/29/2019 1:42 PM CDT Oxygen Saturation 98% 12/29/2019 1:42 PM CDT Inhaled Oxygen Concentration - - Weight 74.4 kg (164 lb) 12/29/2019 1:42 PM CDT Height 175.3 cm (5' 9 ) 12/29/2019 1:42 PM CDT Body Mass Index 24.22 12/29/2019 1:42 PM CDT Body Mass Index Percentile 85.79% 12/29/2019 1:4 2 PM CDT Growth Chart: [facility] (Girls, 2- 20 Years) documented in this encounter Progress Notes * CHAPARRITA Maria - 12/29/2019 1:40 PM CDT Images from the original note were not included. _ Reason for Visit: Follow Up (right ear feels clogged, sinus infection improving) History of Present Illness: [facility] Azalia Neri is a 14-year-old female here for ongoing symptomsof sinus drainage and congestion she states that she is a little bit better with the antibiotics but her symptoms are daily she denies fever she states the drainage is yellow she does have some ear pain also ROS: Review of Systems Feeling well. Denies headaches, vision or hearing problems. Denies [...] Outpatient Medications Marked as Taking for the 12/29/19 encounter (Office Visit) with CHAPARRITA Maria Medication Sig Dispense Refill ??? azithromycin 250 MG tablet Take 2 tablets by mouth on day one then 1 daily for four days. 6 tablet 0 ??? loratadine 10 MG tablet Take 10 mg by mouth daily. No Known Allergies History reviewed. No pertinent past medical history. History reviewed. No pertinent surgical history. Social History Tobacco Use ??? Smoking status: Never Smoker ??? Smokeless tobacco: Never Used Substance Use Topics ??? Alcohol use: No Frequency: Never ??? Drug use: No No family history on file. Family Status Relation Name Status ??? Mother Alive ??? Father Alive Physical Exam Constitutional: Patient is oriented to person, place, and time. Patient appears well-developed and well-nourished. HENT: Right Ear: External ear normal. Left Ear: External ear normal. Tympanic membrane did have air-fluid levels related the worst infection in the left ear her she is complaining more on the right head: Normocephalic. Nose: Nose normal. Nose did have a lot of yellow drainage mouth/Throat: Oropharynx is clear and moist. Postnasal drainage and tonsils are slightly enlarged Eyes: Pupils are equal, round, and reactive [...] content normal. No flowsheet data found. Vitals: 12/29/19 1342 BP: (!) 98/60 Pulse: 88 Body mass index is 24.22 kg/m??. Diagnoses/Impression: 1. Acute non-recurrent sinusitis of other sinus azithromycin 250 MG tablet Orders Placed This Encounter ??? azithromycin 250 MG tablet Recommendations and Plan: She will continue with the nnso-ham-nzvkbzt Mucinex Tylenol Motrin as needed iezt-eey-yfqtshf on antibiotics she will return if her symptoms are persistent she does not need of a note for work or school Patient should follow annual wellness exams recommended for age and sex of patient. Items to consider but not limited included yearly annual fasting labs, colonscopy or cologuard when indicated. PSA and prostate for males. Mammogram and female exam for females, Christina Reid PA-C evaluated and Dr Buddy Allen reviewed and agrees with plan. Cosigned by Buddy Allen MD at 12/30/2019 10:50 AM CDT documented in this encounter Plan of Treatment Not on file documented as of this encounter Visit Diagnoses Diagnosis Acute non-recurrent sinusitis of other sinus- Primary documented in this encounter Care Teams Ms Sql Dba Relationship Specialty [place] [address] [place] [address] PCP - General PHYSICIAN LAYOUT ARTIST 12/29/19 10/27/23 documented as of this encounter
--- OUTSIDE RECORDS SUMMARY | 2024-10-25 16:38 | XMS_ITS | Encounter Summary ---
Author Organization [facility] Address [facility] [place] [address] [place] [address] Care Team Providers Care Surgery Manager Name Role Phone Christina Reid Primary Care Provider [phone] Reason for Visit * Reason Comments Follow Up New medication follo w up feels as if it is working for her Encounter Details Date Type Department Care Team (Late st Contact Info) Description 11/20/2022 2:40 PM DATA CENTER OPERATOR Office Visit [facility] Family & Internal Medicine [facility] [address] [place] [address] [place] [address] [place] [address] Follow Up (New medication follow up feels as if it is working for her) Social History Tobacco Use Types Packs/Day Years [...] Coronavirus/COVID-19? No / Unsure 11/20/2022 2:37 PM DATA CENTER OPERATOR documented as of this encounter Last Filed Vital Signs Vital Sign Reading Time Taken Comments Blood Pressure 115/81 11/20/2022 2:47 PM DATA CENTER OPERATOR Pulse 63 11/20/2022 2:47 PM DATA CENTER OPERATOR Temperature 36.8 ??C (98.3 ??F) 11/20/2022 2:47 PM CS T Respiratory Rate 20 11/20/2022 2:47 PM DATA CENTER OPERATOR Oxygen Saturation 100% 11/20/2022 2:47 PM DATA CENTER OPERATOR Inhaled Oxygen Concentration - - Weight 71.5 kg (157 lb 9.6 oz) 11/20/2022 2:47 P M DATA CENTER OPERATOR Height 180.3 cm (5' 11 ) 11/20/2022 2:47 PM DATA CENTER OPERATOR Body Mass Index 21.98 11/20/2022 2:47 PM DATA CENTER OPERATOR Body Mass Index Percentile 58.91% 11/20/2022 2:4 7 PM DATA CENTER OPERATOR Growth Chart: [facility] (Girls, 2- 20 Years) documented in this encounter Patient Instructions * Attachments The following attachments cannot be sent through Care Everywhere. * Anxiety Discharge Instructions, Child (Ukrainian) documented in this encounter Progress Notes * CHAPARRITA Maria - 11/20/2022 2:40 PM CST Images from the original note were not included. _ Reason for Visit: Follow Up (New medication follow up feels as if it is working for her) History of Present Illness: FRANK Neri is a 16-year-old female here for evaluation of ofher response to the medication for her anxiety. She states that she seems to be doing much better. Her mother has noticed last texting about concerns when she is out in public. Well. She will generally take 5 mg in the morning 5 mg at night and occasionally take extra dose during the day. She is having no side effects of the medication she is not having any problem remembering it. ROS: Review of Systems Feeling well. Denies [...] Outpatient Medications Marked as Taking for the 11/20/22 encounter (Office Visit) with CHAPARRITA Maria Medication Sig Dispense Refill ??? busPIRone (BUSPAR) 15 MG tablet Take 1 tablet (15 mg total) by mouth 2 (two) times daily. 180 tablet 0 No Known Allergies Past Medical History: Diagnosis Date ??? Allergy seasonal ??? Anxiety History reviewed. No pertinent surgical history. Social History Tobacco Use ??? Smoking status: Never ??? Smokeless tobacco: Never Vaping Use ??? Vaping Use: Never used Substance Use Topics ??? Alcohol use: No ??? Drug use: No Family History Problem Relation Name Age of Onset ??? Diabetes Father Aren Family Status Relation Name Status ??? Mother Alive ??? Father Aren Alive 10/23/2022 11/20/2022 PHQ2/PHQ 9 DEPRESSION SCREEN QUESTIONAIRE Little interest or pleasure in doing things Not at all Not at all Feeling down, depressed, or hopeless Not at all Not at all Patient Health Questionnaire-2 Score 0 0 How difficult have these problems made it for you to do your work, take care of things at home, or get along with other people? Not difficult at all Multiple values from one day are sorted in reverse-chronological order 10/23/2022 HUANG-7 Feeling nervous, anxious and on edge 2 - more than half the days Not being able to stop or control worrying 0 - not at all Worrying too much about different things 2 - more than half the days Trouble Relaxing 2 - more than half the days Being so restless that it's hard to sit still 0 - not at all Becoming easily annoyed or irritable 2 - more than half the days Feeling afraid as if something awful might happen 0 - not at all Total Score 8 If you checked off any problems, how difficult have those problems made it for you to do your work take care of things at home or get along with other people? somewhat difficult Multiple values from one day are sorted in reverse-chronological order Physical Exam Constitutional: Patient is oriented to [...] The behavior is normal. Thought content normal. View : No data to display. Vitals: 11/20/22 1447 Patient Position: Sitting BP Location: Right arm Cuff size: Adult Regular BP: (!) 115/81 Pulse: 63 Body mass index is 21.98 kg/m??. Assessment and Plan Encounter Diagnose(s) ICD-10-CM ICD-9-CM SNOMED CT(R) 1. Situational anxiety F41.8 300.09 ANXIETY busPIRone (BUSPAR) 15 MG tablet If she continues to do well we will see her in a year. If she needs us for anything sooner she willlet us know she will be going away to college in the fall for sports. So she would like that done sports physical and some labs. Orders Placed This Encounter ??? busPIRone (BUSPAR) 15 MG tablet t. Patient should follow annual wellness exams recommended for age and sex of patient. Items to consider but not limited included yearly annual fasting labs, colonscopy or cologuard when indicated. PSA and prostate for males. Mammogram and female exam for females, Portions of this note were dictated using [employer] speech recognition software. Occasional wrong wordor sound-alike substitutions may have occurred due to the inherent limitations of voice recognition software. Please read the chart carefully and recognize, using context, where the substitutions may have occurred. Christina Reid PA-C evaluated and Dr Buddy Allen reviewed and agrees with plan. Cosigned by Buddy Allen MD at 11/20/2022 6:25 PM DATA CENTER OPERATOR CENTER OPERATOR CENTER OPERATOR documented in this encounter Plan of Treatment Not on file documented as of this encounter Visit Diagnoses Diagnosis Situational anxiety Other anxiety states documented in this encounter Additional Health Concerns Assessment Noted Time PHQ-9 Depression Total Score: 0 12/13/19 22 3:57 PM DATA CENTER OPERATOR documented as of this encounter Care Teams Surgery Manager Relationship Specialty [place] [address] [place] [address] PCP - General PHYSICIAN BASEBALL SCOUT 12/29/19 10/27/23 documented as of this encounter
--- OUTSIDE RECORDS SUMMARY | 2024-10-25 16:38 | XMS_ITS | Encounter Summary ---
Author Organization [facility] Address [facility] [place] [address] [place] [address] Care Team Providers Care Organic Preparation Technician Name Role Phone Christina Reid Primary Care Provider [phone] Encounter Details Date Type Department Care Team (Latest Contact Info) Description 08/01/2020 Scan HEALTH INFO SRVCS Scanned, Documents Social [...] on filedocumented in this encounter Care Teams Organic Preparation Technician Relationship Specialty [place] [address] [place] [address] PCP - General PHYSICIAN POTATO PEELING MACHINE OPERATOR 12/29/19 10/27/23 documented as of this encounter
--- OUTSIDE RECORDS SUMMARY | 2024-10-25 16:38 | XMS_ITS | Encounter Summary ---
Author Organization [facility] Address [address] [place] [address]. [place] [address] [place] [address] Care Team Providers Care Tree Care Foreman Name Role Phone Unavailable Primary Care Provider Unavailabl e Encounter Details Date Type Department Care Team (Latest Contact Info) Description 06/23/2016 Abstract [facility] Social History Tobacco Use Types Packs/Day [...]
--- OUTSIDE RECORDS SUMMARY | 2024-10-25 16:38 | XMS_ITS | Encounter Summary ---
Author Organization [facility] Address [facility] [place] [address] [place] [address] Care Team Providers Care Icebox Worker Name Role Phone Monet SilverP- Primary Care Provider + Encounter Details Date Type Department Care Team (Latest Contact Info) Description 04/01/2024 Travel Social History Tobacco Use Types Packs/Day [...] Total Score: 0 10/28/19 24 4:50 PM WIRE COATING OPERATOR METAL documented as of this encounter Care Teams Icebox Worker Relationship Specialty Start Date End Date Monet Silver FNP-BC [address], [address] [place] [address] PCP - General Nurse Practitioner Family 10/28/23 documented as of this encounter
--- OUTSIDE RECORDS SUMMARY | 2024-10-25 16:38 | XMS_ITS | Encounter Summary ---
Author Organization [facility] Address [address] [place] [address]. [place] [address] [place] [address] Care Team Providers Care Senior Account Clerk Name Role Phone Christina Reid Primary Care Provider [phone] Encounter Details Date Type Department Care Team (Latest Contact Info) Description 12/13/2021 Scan HEALTH INFO SRVCS Scanned, Documents Social [...] Coronavirus/COVID-19? No / Unsure 12/13/2021 3:51 PM IT CORPORATE RECRUITER documented as of this encounter Plan of Treatment Not on file documented as of this encounter Visit Diagnoses Not on filedocumented in this encounter Additional Health Concerns Assessment Noted Time PHQ-9 Depression Total Score: 0 12/13/19 22 3:57 PM IT CORPORATE RECRUITER documented as of this encounter Care Teams Senior Account Clerk Relationship Specialty [place] [address] [place] [address] PCP - General PHYSICIAN PRODUCTION LINE MANAGER 12/29/19 10/27/23 documented as of this encounter
--- OUTSIDE RECORDS SUMMARY | 2024-10-25 16:38 | XMS_ITS | Encounter Summary ---
Author Organization [facility] Address [facility] [place] [address] [place] [address] Care Team Providers Care Absorption Plant Operator Helper Name Role Phone Monet SilverP- Primary Care Provider + Encounter Details Date Type Department Care Team (Latest Contact Info) Description 03/19/2024 Travel Social History Tobacco Use Types Packs/Day [...] Total Score: 0 10/28/19 24 4:50 PM HEALTHCARE PROF documented as of this encounter Care Teams Absorption Plant Operator Helper Relationship Specialty Start Date End Date Monet Silver FNP-BC [address], [address] [place] [address] PCP - General Nurse Practitioner Family 10/28/23 documented as of this encounter
--- OUTSIDE RECORDS SUMMARY | 2024-10-25 16:38 | XMS_ITS | Encounter Summary ---
Author Organization [facility] Address [address] [place] [address]. [place] [address] [place] [address] Care Team Providers Care Stripper Cutter Machine Name Role Phone Christina Reid Primary Care Provider [phone] Encounter Details Date Type Department Care Team (Latest Contact Info) Description 12/13/2021 Travel Social History Tobacco Use Types Packs/Day [...] Coronavirus/COVID-19? No / Unsure 12/13/2021 3:51 PM CAR SALES CONSULTANT documented as of this encounter Plan of Treatment Not on file documented as of this encounter Visit Diagnoses Not on filedocumented in this encounter Additional Health Concerns Assessment Noted Time PHQ-9 Depression Total Score: 0 12/13/19 22 3:57 PM CAR SALES CONSULTANT documented as of this encounter Care Teams Stripper Cutter Machine Relationship Specialty [place] [address] [place] [address] PCP - General PHYSICIAN BLOCK CAPTAIN 12/29/19 10/27/23 documented as of this encounter
--- OUTSIDE RECORDS SUMMARY | 2024-10-25 16:38 | XMS_ITS | Encounter Summary ---
Author Organization [facility] Address [facility] [place] [address] [place] [address] Care Team Providers Care Analytical Chemist Name Role Phone Christina Reid Primary Care Provider Reason for Visit * Reason Comments Anxiety Panic Attack Encounter Details Date Type Department Care Team (Late st Contact Info) Description 10/23/2022 8:40 AM FABRIC LAY OUT WORKER Office Visit [facility] Family & Internal Medicine [facility] [address] [place] [address] [place] [address] [place] [address] Anxiety; Panic Attack Social History Tobacco Use Types Packs/Day Years [...] Coronavirus/COVID-19? No / Unsure 10/23/2022 8:40 AM FABRIC LAY OUT WORKER documented as of this encounter Last Filed Vital Signs Vital Sign Reading Time Taken Comments Blood Pressure 110/69 10/23/2022 8:43 AM FABRIC LAY OUT WORKER Pulse 93 10/23/2022 8:43 AM FABRIC LAY OUT WORKER Temperature 36.6 ??C (97.8 ??F) 10/23/2022 8:43 AM CS T Respiratory Rate 18 10/23/2022 8:43 AM FABRIC LAY OUT WORKER Oxygen Saturation 100% 10/23/2022 8:43 AM FABRIC LAY OUT WORKER Inhaled Oxygen Concentration - - Weight 69.4 kg (153 lb) 10/23/2022 8:43 AM FABRIC LAY OUT WORKER Height 180.3 cm (5' 11 ) 10/23/2022 8:43 AM FABRIC LAY OUT WORKER Body Mass Index 21.34 10/23/2022 8:43 AM FABRIC LAY OUT WORKER Body Mass Index Percentile 51.66% 10/23/2022 8:4 3 AM FABRIC LAY OUT WORKER Growth Chart: [facility] (Girls, 2- 20 Years) documented in this encounter Progress Notes * CHAPARRITA Maria - 10/23/2022 8:40 AM CST Images from the original note were not included. _ Reason for Visit: Anxiety and Panic Attack History of Present Illness: [facility] Azalia Neri is a 16-year-old female here for evaluation of anxiety symptoms. Patient is seen counselor in the past for the anxiety in the worked on some techniques for trying to control the situational anxiety patient notices it more when she is getting ready to go into a work activity or leave her home to go to the activity. She also is noticing it in schoollike when she is having testing. She notices that her heart will start racing and her stomach this drops. She feels nauseous in the car. She is here with her mother Jane. Her mother has noticed increase of her symptoms lately patient and her who have allergies and told that she is having at least 2 episodes a day since before . She denies any thoughts of depression dictate any thoughts of harm herself or others. Patient does plan softball she will be playing college sports who is concerned she will since she is having increasing anxiety that will affect her athletic career as wellas her education because of the panic-like attacks. We did review patient's record she is up-to-date on her immunizations. She has never had screening labs and is agreeable today. ROS: Review of Systems Feeling well. Denies [...] Outpatient Medications Marked as Taking for the 10/23/22 encounter (Office Visit) with CHAPARRITA Maria Medication Sig Dispense Refill ??? busPIRone (BUSPAR) 15 MG tablet Take 1 tablet (15 mg total) by mouth 2 (two) times daily. 90 tablet 0 ??? PENICILLIN G SODIUM IJ Taking for tooth extraction No Known Allergies Past Medical History: Diagnosis [...] View : No data to display. Vitals: 10/23/22 0843 Patient Position: Sitting BP Location: Right arm Cuff size: Adult Regular BP: (!) 110/69 Pulse: 93 Body mass index is 21.34 kg/m??. Assessment and Plan Encounter Diagnose(s) ICD-10-CM ICD-9-CM SNOMED CT(R) 1. [facility] Z00.00 V70.0 PATIENT ENCOUNTER STATUS CBC W/DIFF AUTOMATED TSH W/REFLEX COMPREHENSIVE METABOLIC PANEL LIPID PANEL 2. Situational anxiety F41.8 300.09 ANXIETY busPIRone (BUSPAR) 15 MG tablet We talked about starting on BuSpar 15 mg and she will start with 5 mg twice daily increase dosing over period of 1 to 2 weeks depending how she responds to therapy up to 50 mg twice daily we will touch base in approximately a month. She will continue to use her method that she was taught in therapy. She will have her screening labs. Orders Placed This Encounter ??? CBC W/DIFF AUTOMATED ??? TSH W/REFLEX ??? COMPREHENSIVE METABOLIC PANEL ??? LIPID PANEL ??? PENICILLIN G SODIUM IJ ??? busPIRone (BUSPAR) 15 MG tablet I spent 33 minutes obtaining history and performing exam. Time was also spent either ordering medications, tests, or ordering procedures. Time was also spent documenting the medical record, reviewingresults, and communicating test results to the patient. Patient should follow annual wellness exams recommended for age and sex of patient. Items to consider but not limited included yearly annual fasting labs, colonscopy or cologuard when indicated. PSA and prostate for males. Mammogram and female exam for females, Portions of this note were dictated using [employer] speech recognition software. Occasional wrong wordor sound-alike substitutions may have occurred due to the inherent limitations of voice recognition software. Please read the chart carefully and recognize, using context, where the substitutions may have occurred. Christina Reid PA-C evaluated and Dr Buddy Allen reviewed and agrees with plan. Cosigned by Buddy Allen MD at 10/23/2022 1:16 PM FABRIC LAY OUT WORKER IC LAY OUT WORKER IC LAY OUT WORKER documented in this encounter Plan of Treatment Not on file documented as of this encounter Results * LIPID PANEL (10/23/2022 9:49 AM FABRIC LAY OUT WORKER) [facility] CHOLESTEROL 107 <200.0 MG/DL 10/23/2022 10:58 AM [facility] TRIGLYCERIDES 49 <150 MG/DL 10/23/2022 10:58 AM [facility] HDL 45 >40.0 MG/DL 10/23/2022 10:58 AM [facility] LDL (CALCULATED) 52 <100 MG/DL 10/23/19 10:58 AM [facility] NON HDL CHOLESTEROL 62 <130 MG/DL 10/23 10:58 AM [facility] CHOL/HDL RATIO 2.4 0.0 - 4.5 10/23/2022 10:58 AM [facility] VLDL CALCULATION 10 5 - 55 MG/DL 10/23/2022 10:58 AM [facility] LIPID INTERPRETATION 10/23/2022 10:58 AM [facility] Comment: NIH CONCENSUS REPORT RECOMMENDATIONS: ?ADULT [...] ?LDL ? >=160 ?>=130 10/23/2022 9:49 AM FABRIC LAY OUT WORKER us [facility] Final Result Performing Organization Address [facility]/State/ZIP Co de Phone Number [facility] [address] [place] [address], * (ABNORMAL) COMPREHENSIVE METABOLIC PANEL (10/23/2022 9:49 AM FABRIC LAY OUT WORKER) GLUCOSE 91 70 - 99 MG/DL 10/23/2022 10:58 AM FABRIC LAY OUT WORKER [facility] BUN 10 7 - 18 MG/DL 10/23/2022 10:58 AM [facility] CREATININE S/P/B 0.68 0.55 - 1.02 MG/DL 10/23/2022 10:58 AM [facility] SODIUM S/P/B 140 136 - 145 MMOL/L 10/23/2022 10:58 AM [facility] POTASSIUM S/P/B 4.1 3.5 - 5.1 MMOL/L 10/23/2022 10:58 AM [facility] CHLORIDE S/P/B 103 100 - 108 MMOL/L 10/23/2022 10:58 AM [facility] CO2 26.6 21 - 32 MMOL/L 10/23/2022 10:58 AM [facility] CALCIUM S/P/B 9.0 8.5 - 10.1 MG/DL 10/23/2022 10:58 AM [facility] BILIRUBIN TOTAL S/P/B 0.7 0.2 - 1.1 MG/DL 10/23/2022 10:58 AM [facility] TOTAL PROTEIN S/P/B 7.7 6.4 - 8.2 G/DL 10/23/2022 10:58 AM [facility] ALBUMIN S/P/B 4.1 3.4 - 5.0 G/DL 10/23/2022 10:58 AM [facility] AST 14(L) 15 - 37 U/L 10/23/2022 10:58 AM [facility] ALT 8(L) 14 - 55 U/L 10/23/2022 10:58 AM [facility] ALKALINE PHOSPHATASE S/P/B 48(L) 50 - 136 U/L 10/23/2022 10:58 AM [facility] ANION GAP 10.4 5 - 15 MMOL/L 10/23/2022 10:58 AM [facility] BUN CREATININE RATIO 14.7 6 - 26 10/23/2022 10:58 AM [facility] A/G RATIO 1.1 1.0 - 2.0 RATIO 10/23/2022 10:58 AM [facility] GFR ESTIMATE NOT CALCULATED ML/MIN/1. 73 M2 10/23/2022 10:58 AM [facility] Comment: NOTE: eGFR is not calculated for patients <18 years of age. This is an estimated GFR calculation using the new CKD EPI creatinine equation without race and so does not require a correction factor for race. This estimated GFR should not be used for calculating drug doses. 10/23/2022 9:49 AM FABRIC LAY OUT WORKER Christina [facility] Final Result Performing Organization Address City/[facility]/ZIP Co de Phone Number [facility] [address] [place] [address], [place] [phone] * TSH W/REFLEX (10/23/2022 9:49 AM FABRIC LAY OUT WORKER) TSH 1.213 0.358 - 3.74 uIU/ML 10/23/2022 10:58 AM FABRIC LAY OUT WORKER [facility] Comment: HIGH DOSES OF BIOTIN MAY INTERFERE WITH THIS TEST RESULT. CORRELATION TO CLINICAL HISTORY AND PRESENTATION RECOMMENDED. FREE T4 NOT INDICATED 10/23/2022 9:49 AM FABRIC LAY OUT WORKER us Christina [facility] Final Result Performing Organization Address City/[facility]/ZIP Co de Phone Number [facility] [address] [place] [address], [place] [phone] * (ABNORMAL) CBC W/DIFF AUTOMATED (10/23/2022 9:49 AM FABRIC LAY OUT WORKER) WBC 5.23 4.2 - 9.4 x10'3/uL 10/23/2022 10:33 AM [facility] RBC 4.51 3.90 - 4.96 x10'6/uL 10/23/2022 10:33 AM [facility] HGB 13.1 10.8 - 13.3 G/DL 10/23/2022 10:33 AM [facility] HCT 40.0(H) 32.4 - 39.5 % 10/23/2022 10:33 AM [facility] MCV 88.7 76.9 - 90.6 FL 10/23/2022 10:33 AM [facility] MCH 29.0 24.8 - 29.5 PG 10/23/2022 10:33 AM [facility] MCHC 32.8 31.8 - 34.6 G/DL 10/23/2022 10:33 AM [facility] RDW 12.6 12.4 - 14.9 % 10/23/2022 10:33 AM [facility] PLT 213 189 - 394 x10'3/uL 10/23/2022 10:33 AM [facility] MPV 11.3 9.6 - 11.7 FL 10/23/2022 10:33 AM [facility] RBC MORPHOLOGY NORMAL 10/23/2022 10:33 AM [facility] PLT MORPH. NORMAL 10/23/2022 10:33 AM [facility] WBC MORPHOLOGY NORMAL 10/23/2022 10:33 AM [facility] LYMPHOCYTES % 35.2 15.8 - 45.0 % 10/23/2022 10:33 AM [facility] NEUTROPHILS % 53.5 42.1 - 71.9 % 10/23/2022 10:33 AM [facility] MONOCYTES % 7.8 5.7 - 12.5 % 10/23/2022 10:33 AM FABRIC LAY OUT WORKER [facility] EOSINOPHILS 2.5 0.0 - 5.6 % 10/23/2022 10:33 AM FABRIC LAY OUT WORKER [facility] BASOPHILS 0.6 0.0 - 1.3 % 10/23/2022 10:33 AM [facility] ABS. NEUTROPHILS 2.80 1.40 - 6.00 x10'3/uL 10/23/2022 10:33 AM [facility] IMMATURE GRANS % 0.4 0.0 - 0.5 % 10/23/2022 10:33 AM [facility] ABS. LYMPHOCYTES 1.84 0.80 - 4.70 x10'3/uL 10/23/2022 10:33 AM [facility] 10/23/2022 9:49 AM FABRIC LAY OUT WORKER us Christina [facility] Final Result Performing Organization Address City/State/[facility] Co de Phone Number [facility] [address] [place] [address], documented in this encounter Visit Diagnoses Diagnosis Routine general medical examination at a health care facility- Primary Situational anxiety Other anxiety states documented in this encounter Additional Health Concerns Assessment Noted Time PHQ-9 Depression Total Score: 0 12/13/19 22 3:57 PM FABRIC LAY OUT WORKER documented as of this encounter Care Teams Analytical Chemist Relationship Specialty [place] [address] [place] [address] PCP - General PHYSICIAN ORTHOTIC AIDE 12/29/19 10/27/23 documented as of this encounter
--- OUTSIDE RECORDS SUMMARY | 2024-10-25 16:38 | XMS_ITS | Encounter Summary ---
Author Organization [facility] Address [facility] [place] [address] [place] [address] Care Team Providers Care Sephora Product Consultant Name Role Phone Monet Silver [facility] Primary Care Provider + Reason for Visit * Reason Comments Medication Follow up medication Encounter Details Date Type Department Care Team (Late st Contact Info) Description 01/10/2024 4:40 PM CDT Office Visit [facility] Family & Internal Medicine [facility] [address] [place] [address] Monet Silver [facility] [id number] [place] [address] [address] [place] [address] Medication (Follow up medication) Social [...] Sign Reading Time Taken Comments Blood Pressure 133/80 01/10/2024 4:40 PM CDT Pulse 74 01/10/2024 4:40 PM CDT Temperature 36.6 ??C (97.8 ??F) 01/10/2024 4:40 PM CD T Respiratory Rate 16 01/10/2024 4:40 PM CDT Oxygen Saturation 99% 01/10/2024 4:40 PM CDT Inhaled Oxygen Concentration - - Weight 79.9 kg (176 lb 3.2 oz) 01/10/2024 4:40 P M CDT Height 180.3 cm (5' 11 ) 01/10/2024 4:40 PM CDT Body Mass Index 24.57 01/10/2024 4:40 PM CDT documented in this encounter Patient Instructions * Attachments The following attachments cannot be sent through Care Everywhere. * Ethinyl Estradiol and Drospirenone, ADULT (Cymraes) * Choosing control (Cymraes) documented in this encounter Progress Notes * Monet Silver, WRAPPER CASHIER-BC - 01/10/2024 4:40 PM CDT Reason for Visit: Medication (Follow up medication) History of Present Illness: Azalia Neri is a healthy 18-year-old female who presents to the clinic today for follow up of anxiety. She presents with her mother who assists with medical information. She reports compliance with buspirone and thinks it has been helping her anxiety. She is currently taking 15 mg once daily. She has had a few episodes of palpitations since being home the last few weeks. She states palpitations occur at rest and seem to occur with anxiety. She denies dizziness, chest discomfort, or diaphoresis. She would like to discuss starting control. She is not currently sexually active and no prior intercourse. Last menstrual period 12/20/2023. Menstrual cycles are regular and not exce ptionally heavy or painful. Current Outpatient Medications Medication Instructions busPIRone (BUSPAR) [...] Father Aren Review of Systems Constitutional: Negative. Negative for diaphoresis. Respiratory: Negative. Negative for chest tightness and shortness of breath. Cardiovascular: Positive for palpitations. Tachycardia Genitourinary: Negative for menstrual problem and vaginal discharge. Skin: Negative for rash and wound. Neurological: Negative for dizziness, tingling and numbness. Psychiatric/Behavioral: The patient is nervous/anxious. Physical exam: Filed Vitals: 01/10/24 1640 BP: 133/80 Pulse: 74 Resp: 16 Temp: 97.8 ??F (36.6 ??C) TempSrc: Temporal SpO2: 99% Weight: 79.9 kg (176 lb 3.2 oz) Height: 1.803 m (5' 11 ) Body mass index is 24.57 kg/m??. Physical Exam Vitals reviewed. Constitutional: General: She is not in acute distress. Appearance: Normal appearance. She is normal weight. She is not toxic-appearing. HENT: Head: Normocephalic. Mouth/Throat: Mouth: Mucous membranes are moist. Eyes: General: No scleral icterus. Conjunctiva/sclera: Conjunctivae normal. Neck: Vascular: No JVD. Cardiovascular: Rate and Rhythm: Normal rate and [...] takes less than 2 seconds. Findings: No rash. Neurological: General: No focal deficit present. Mental Status: She is alert. Mental status is at baseline. Psychiatric: Attention and Perception: Attention and perception normal. Mood and Affect: Mood normal. Speech: Speech normal. Speech is not slurred. Behavior: Behavior normal. Behavior is cooperative. Assessment: Encounter Diagnose(s) ICD-10-CM SNOMED CT(R) 1. Anxiety F41.9 ANXIETY 2. Palpitations R00.2 PALPITATIONS 3. Encounter for initial prescription of contraceptive pills Z30.011 PATIENT ENCOUNTER STATUS drospirenone-ethinyl estradiol (KISHOR) 3-0.02 MG tablet Plan: 1. Anxiety Chronic, improved. Continue buspirone 15 mg p.o. daily. Discussed taking twice daily anxiety worsens. TSH within normal limits 2. Palpitations Reported last office visit. May be secondary to anxiety. Cardiopulmonary exam unremarkable. 48-hourevent monitor and echocardiogram pending. 3. Encounter for initial prescription of contraceptive pills Discussed multiple management methods for contraception with risks/benefits, including SANCHEZ, PRP, Xulane patch, NuvaRing, progesterone IUD and Nexplanon. She does not report concern for remembering totake oral medications and would like to proceed with SANCHEZ. No history of migraines with auras, personal or family history of coagulopathy or VTE. Non-smoker. - drospirenone-ethinyl estradiol (KISHOR) 3-0.02 MG tablet; Take 1 tablet by mouth daily. Dispense: 84 tablet; Refill: 0 Follow up Follow-up in 8 weeks for contraception management RADHA DILLON 01/10/2024 5:22 PM Be advised that voice recognition software has been used on this chart and inadvertent errors may occur. These may not represent a true interpretation of the dictation given. documented in this encounter Plan of Treatment Not on file documented as of this encounter Visit Diagnoses Diagnosis Anxiety- Primary Anxiety state, unspecified Palpitations Encounter for initial prescription of contraceptive pills General counseling for prescription of oral contraceptives documented in this encounter Additional Health Concerns Assessment Noted Time PHQ-9 Depression Total Score: 0 10/28/19 24 4:50 PM FINANCIAL CONSULTANT documented as of this encounter Care Teams Sephora Product Consultant Relationship Specialty Start Date End Date Monet Silver FNP-BC [address], [address] [place] [address] PCP - General Nurse Practitioner Family 10/28/23 documented as of this encounter
--- OUTSIDE RECORDS SUMMARY | 2024-10-25 16:40 | XMS_ITS | Clinical Summary ---
Author Organization [facility] Address [address] [place] [address] Phone Care Team Providers Care Screening Technician Name Role Phone Hedy Lyles APRN, OUTSOLE BEVELER Primary Care Provider Unavailable Allergies No known active allergies Social History Tobacco Use Types Packs/Day Years Used Date Smoking Tobacco: Never Alcohol Use Standard Drinks/Week Comments Never 0 (1 standard drink = 0.6 oz pur e alcohol) AUDIT-C Answer Date Recorded Frequency of Alcohol Consumption Never 04/26/2019 Average Number of Drinks Not on file 019 Frequency of Binge Drinking Not on file 04/2019 Comments No Sex and Gender Information Value Date Recorded Sex Assigned at Not on file Legal Sex Female 12:33 AM CDT Gender Identity Not on file Sexual Orientation Not on file Last Filed Vital Signs Vital Sign Reading Time Taken Comments Blood Pressure 116/84 04/26/2019 1:29 AM CDT Pulse 83 04/26/2019 1:30 AM CDT Temperature 36.6 ??C (97.9 ??F) 04/26/2019 12:42 AM C DT Respiratory Rate 16 04/26/2019 12:42 AM CDT Oxygen Saturation 100% 04/26/2019 1:30 AM CDT Inhaled Oxygen Concentration - - Weight 69.4 kg (153 lb) 04/26/2019 12:33 AM CDT Height - - Body Mass Index - - Plan of Treatment Not on file [facility] Care Teams Screening Technician Relationship Specialty Start Date End Date Hedy Lyles APRN, MINNA PCP - General Family Medicine 04/25/19
--- OUTSIDE RECORDS SUMMARY | 2024-10-25 17:05 | XMS_ITS | Encounter Summary ---
Author Organization [facility] Address [facility] [place] [address] [place] [address] Care Team Providers Care Talent Acquisition Associate Name Role Phone Monet Silver [facility] Primary Care Provider + Reason for Visit * Reason Comments Medication Follow up medication Encounter Details Date Type Department Care Team (Late st Contact Info) Description 04/01/2024 8:20 AM CDT Office Visit [facility] Group Family & Internal Medicine [facility] [id number] [place] [address] Monet Silver, [facility] [id number] [place] [address] [address] [place] [address] Medication (Follow up medication ) [...] this encounter Progress Notes * Monet Silver, PATIENT ACCOUNTING REPRESENTATIVE-BC - 04/01/2024 8:20 AM CDT Reason for [...] Total Score: 0 10/28/19 24 4:50 PM CITY RECORDER documented as of this encounter Care Teams Talent Acquisition Associate Relationship Specialty Start Date End Date Monet Silver FNP-BC [address], [address] [place] [address] PCP - General Nurse Practitioner Family 10/28/23 documented as of this encounter
--- OUTSIDE RECORDS SUMMARY | 2024-10-25 17:05 | XMS_ITS | Encounter Summary ---
Author Organization [facility] Address [facility] [facility] [place] [address] [place] [address] Care Team Providers Care Manganese Wheeler Name Role Phone Christina Reid Primary Care Provider [phone] Reason for Visit * Reason Comments Follow Up New medication follo w up feels as if it is working for her Encounter Details Date Type Department Care Team (Late st Contact Info) Description 11/20/2022 2:40 PM DEPARTMENT COORDINATOR Office Visit [facility] Family & Internal Medicine [facility] [address] [place] [address] [place] [address] [place] [address] Follow Up (New medication follow [...] Coronavirus/COVID-19? No / Unsure 11/20/2022 2:37 PM DEPARTMENT COORDINATOR documented as of this encounter Last Filed Vital Signs Vital Sign Reading Time Taken Comments Blood Pressure 115/81 11/20/2022 2:47 PM DEPARTMENT COORDINATOR Pulse 63 11/20/2022 2:47 PM DEPARTMENT COORDINATOR Temperature 36.8 ??C (98.3 ??F) 11/20/2022 2:47 PM CS T Respiratory Rate 20 11/20/2022 2:47 PM DEPARTMENT COORDINATOR Oxygen Saturation 100% 11/20/2022 2:47 PM DEPARTMENT COORDINATOR Inhaled Oxygen Concentration - - Weight 71.5 kg (157 lb 9.6 oz) 11/20/2022 2:47 P M DEPARTMENT COORDINATOR Height 180.3 cm (5' 11 ) 11/20/2022 2:47 PM DEPARTMENT COORDINATOR Body Mass Index 21.98 11/20/2022 2:47 PM DEPARTMENT COORDINATOR Body Mass Index Percentile 58.91% 11/20/2022 2:4 7 PM DEPARTMENT COORDINATOR Growth Chart: [facility] (Girls, 2- 20 Years) documented in this encounter Patient Instructions * Attachments The following attachments cannot be sent through Care Everywhere. * Anxiety Discharge Instructions, Child (Djiboutian) documented in this encounter Progress Notes * [...] Portions of this note were dictated using [employer] speech recognition software. Occasional wrong wordor sound-alike substitutions may have occurred due to the inherent limitations of voice recognition software. Please read the chart carefully and recognize, using context, where the substitutions may have occurred. Christina Reid PA-C evaluated and Dr Buddy Allen reviewed and agrees with plan. Cosigned by Buddy Allen MD at 11/20/2022 6:25 PM DEPARTMENT COORDINATOR RTMENT COORDINATOR RTMENT COORDINATOR documented in this encounter Plan of Treatment Not on file documented as of this encounter Visit Diagnoses Diagnosis Situational anxiety Other anxiety states documented in this encounter Additional Health Concerns Assessment Noted Time PHQ-9 Depression Total Score: 0 12/13/19 22 3:57 PM DEPARTMENT COORDINATOR documented as of this encounter Care Teams Manganese Wheeler Relationship Specialty [place] [address] [place] [address] PCP - General PHYSICIAN LEAF CONDITIONER HELPER 12/29/19 10/27/23 documented as of this encounter
--- OUTSIDE RECORDS SUMMARY | 2024-10-25 17:05 | XMS_ITS | Clinical Summary ---
Author Organization [facility] Address [address] [facility] [place] [address] Care Team Providers Care Film Projector Operator Name Role Phone Samina Bui MD Unavailable Tian Jenkins MD Primary Care Provider [phone] [facility],non-owned Affiliates and Associated Physician Practices is amultiple site organization consisting of ambulatory clinics and hospital sitesin [place], [place], [place] and [place]. This disclosure is being madepursuant to the Care Everywhere program and may not contain all information available regarding this patient. Last updated 18.[facility] Allergies No known active allergies Medications * [...] age to complete this topic Care Teams Film Projector Operator Relationship Specialty Start Date End Date Samina Bui MD PCP - Pediatrics 08/25/09 Tian Jenkins MD [address] [place] [address] PCP - General 07/08/10
--- OUTSIDE RECORDS SUMMARY | 2024-10-25 17:05 | XMS_ITS | Encounter Summary ---
Author Organization [facility] Address [facility] [place] [address] [place] [address] Care Team Providers Care Fisherman Helper Name Role Phone Monet Silver [facility] Primary Care Provider + Reason for Visit * Reason Comments Medication Follow up medication Encounter Details Date Type Department Care Team (Late st Contact Info) Description 01/10/2024 4:40 PM CDT Office Visit [facility] Group Family & Internal Medicine [facility] [id number] [place] [phone] Monet Silver [facility] [address] [place] [address] [address] [place] [address] Medication (Follow up medication) Social [...] Everywhere. * Ethinyl Estradiol and Drospirenone, ADULT (Austrian) * Choosing control (Austrian) documented in this encounter Progress Notes * Monet Silver, NOVELTY MAKER-BC - 01/10/2024 4:40 PM CDT Reason for [...] Total Score: 0 10/28/19 24 4:50 PM MANUAL ARTS TEACHER documented as of this encounter Care Teams Fisherman Helper Relationship Specialty Start Date End Date Monet Silver FNP-BC [address], [address] [place] [address] PCP - General Nurse Practitioner Family 10/28/23 documented as of this encounter
--- OUTSIDE RECORDS SUMMARY | 2024-10-25 17:05 | XMS_ITS | Encounter Summary ---
Author Organization [facility] Address [address] [place] [address]. [place] [address] [place] [address] Care Team Providers Care Clinical Statistics Manager Name Role Phone Monet Silver [facility] Primary Care Provider + Reason for Visit * Reason Onset Date Comments Schedule Test 12/04/2023 48hr hm Encounter Details Date Type Department Care Team (Late st Contact Info) Description 12/04/2023 Telephone [facility] n [address] [address] Kierra العلي RMA Schedule Test (48hr hm) [...] their care back to ordering. (48hr ) CUTTING MACHINE OPERATOR documented in this encounter Plan of Treatment Not on file documented as of this encounter Visit Diagnoses Not on filedocumented in this encounter Additional Health Concerns Assessment Noted Time PHQ-9 Depression Total Score: 0 10/28/19 4:50 PM GAS CUTTING MACHINE OPERATOR documented as of this encounter Care Teams Clinical Statistics Manager Relationship Specialty Start Date End Date Monet Silver, MARBLE COPER- [address], [address] [place] [address] PCP - General Nurse Practitioner Family 10/28/23 documented as of this encounter
--- OUTSIDE RECORDS SUMMARY | 2024-10-25 17:05 | XMS_ITS | Encounter Summary ---
Author Organization [facility] Address [facility] [facility] [place] [address] [place] [address] Care Team Providers Care Cigar Tobacco Processing Supervisor Name Role Phone Monet Silver [facility] Primary Care Provider + Encounter Details Date Type Department Care Team (Late st Contact Info) Description 03/11/2024 [place] Message Enc [facility] Medical Group Family & Internal Medicine - [place] [address] [place] [address] Monet Silver, [facility] [address] [facility] [address] [place] [address] Foot Pain Social History Tobacco [...] Total Score: 0 10/28/19 24 4:50 PM BEADING MACHINE OPERATOR documented as of this encounter Care Teams Cigar Tobacco Processing Supervisor Relationship Specialty Start Date End Date Monet Silver FNP-BC [address] [facility], [address] [place] [address] PCP - General Nurse Practitioner Family 10/28/23 documented as of this encounter
--- OUTSIDE RECORDS SUMMARY | 2024-10-25 17:05 | XMS_ITS | Encounter Summary ---
Author Organization [facility] Address [address] [facility] [place] [address] [place] [address] Care Team Providers Care Truss Maker Name Role Phone Monet Silver [facility] Primary Care Provider + Reason for Referral * Imaging (Urgent) - Closed Specialty Diagnoses / Procedures Referred By Contac t Referred To Contact RADIOLOGY Diagnoses Left foot pain Procedures MRI FOOT LT WO CON Héctor Dumas MD [address] [place] [address] Phone: tel:[phone] fax: Referral ID Status Reason Start Date Expiration Date Visits Re quested Visits Authorized [id number] Closed 03/19/2024 04/18/2025 1 1 Reason for Visit * Reason Comments New Patient L foot pain that ran domly flared up end of softball season last fall. Pain under ball of foot. Worsens when bares weight. No known trauma Encounter Details Date Type Department Care Team (Late st Contact Info) Description 03/19/2024 8:00 AM CDT Office Visit [facility] Medical Group Orthopedic & Sports Medicine - [place] [address] [place] [address] Héctor Dumas MD [address] [place] [address] New Patient (L foot pain that randomly [...] foot pain. 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 She noted around July 2023 and shehad [...] Portions of this note were dictated using [employer] speech recognition software. Occasional wrong wordor sound-alike [...] Total Score: 0 10/28/19 24 4:50 PM PERSONNEL ASSOCIATE documented as of this encounter Care Teams Truss Maker Relationship Specialty Start Date End Date Monet Silver, BOILER REPAIR SUPERVISOR- [address] [facility], [address] [place] [address] PCP - General Nurse Practitioner Family 10/28/23 documented as of this encounter
--- OUTSIDE RECORDS SUMMARY | 2024-10-25 17:05 | XMS_ITS | Encounter Summary ---
Author Organization [facility] Address [address] [place] [address]. [place] [address] [place] [address] Care Team Providers Care Hogshead Cooper Name Role Phone Christina Reid Primary Care Provider [phone] Encounter Details Date Type Department Care Team [...] Coronavirus/COVID-19? No / Unsure 11/20/2022 2:37 PM SUPERINTENDENT HORTICULTURE documented as of this encounter Plan of Treatment Not on file documented as of this encounter Visit Diagnoses Not on filedocumented in this encounter Additional Health Concerns Assessment Noted Time PHQ-9 Depression Total Score: 0 12/13/19 22 3:57 PM SUPERINTENDENT HORTICULTURE documented as of this encounter Care Teams Hogshead Cooper Relationship Specialty [place] [address] [place] [address] PCP - General PHYSICIAN HALL CLERK 12/29/19 10/27/23 documented as of this encounter
--- OUTSIDE RECORDS SUMMARY | 2024-10-25 17:05 | XMS_ITS | Clinical Summary ---
Author Organization [facility] Address [facility] [facility] [place] [address] [place] [address] Care Team Providers Care Shingle Inspector Name Role Phone Monet Silver [facility] Primary Care Provider + Allergies No known [...] complete this topic Insurance [employer] Care Teams Shingle Inspector Relationship Specialty Start Date End Date Monet Silver, TEARER-BC [address], [address] [place] [address] PCP - General Nurse Practitioner Family 10/28/23
--- OUTSIDE RECORDS SUMMARY | 2024-10-25 17:05 | XMS_ITS | Encounter Summary ---
Author Organization [facility] Address [facility] [facility] [place] [address] [place] [address] Care Team Providers Care [address] Shaft And Steering Post Repairer Name Role Phone Monet Silver [facility] Primary Care Provider + Encounter Details Date Type Department Care Team (Late st Contact Info) Description 03/17/2024 Orders Only [facility] Medical Group Orthopedic & Sports Medicine - [place] [address] [place] [address] Elias Boland MD [address] [place] [address] Social History Tobacco Use Types Packs/Day Years [...] Depression Total Score: 0 10/28/19 4:50 PM POST ACUTE CARE REGISTERED NURSE documented as of this encounter Care Teams Drive Shaft And Steering Post Repairer Relationship Specialty Start Date End Date Monet Silver, SVP RESEARCH & EBUSINESS OPERATIONS-BC [address] [facility], [address] [place] [address] PCP - General Nurse Practitioner Family 10/28/23 documented as of this encounter
--- OUTSIDE RECORDS SUMMARY | 2024-10-25 17:05 | XMS_ITS | Encounter Summary ---
Author Organization [facility] Address [facility] [place] [address] [place] [address] Care Team Providers Care Illusionist Name Role Phone Christina Reid Primary Care Provider Reason for Visit * Reason Onset Date Comments Downtime Visit 07/16/2023 Encounter Details Date Type Department Care Team (Late st Contact Info) Description 06/21/2023 9:00 AM CDT Office Visit [facility] Medical Group Family & Internal Medicine [facility] [address] [place] [address] Monet Silver, [facility]- [address] [facility], [address] [place] [address] Downtime Visit Social History Tobacco [...] may be found under the media tab. RA MACHINIST * Cortney Pope RN - 06/21/2023 9:00 [...] Total Score: 0 12/13/19 22 3:57 PM CAMERA MACHINIST documented as of this encounter Care Teams Illusionist Relationship Specialty [place] [address] [place] [address] PCP - General PHYSICIAN APPLICATION SPEC 12/29/19 10/27/23 documented as of this encounter
--- OUTSIDE RECORDS SUMMARY | 2024-10-25 17:05 | XMS_ITS | Encounter Summary ---
Author Organization [facility] Address Critical access hospital[address] [facility] [place] [address] [place] [address] Care Team Providers Care Sfdc Solution Architect Name Role Phone Nika Fitzgerald [facility] Primary Care Provider + Encounter Details Date Type Department Care Team (Latest Contact Info) Description 05/20/2024 12:07 PM CDT - 05/20/2024 11:59 PM CDT Hospital Encounter [facility] Cardiopulmonary Services [address] [place], [place] [id number] Nika Fitzgerald, [facility] [address], [address] [place] [address] Discharge Disposition: Home or Self [...] CDT) 05/20/2024 11:1 3 AM CDT Narrative [facility] RAD - 05/22/2024 5:15 PM CDT ?[facility] ? Test Date: ?2024-05-20 Pat Name: ? AZALIA NERI ?Department: ?? 85 ? Room: ? Gender: ? Female ? Cap Cutter: ?? : ?2005 ? Requested By: NIKA FITZGERALD Order Number: [id number] ? Reading : ?? Buddy Allen ? Measurements Intervals ?[place] ? Rate: ? 70 ? P: ?53 AL: ? 182 ?QRS: ?47 QRSD: ? 96 ? T: ?33 QT: ? 363 ? QTc: ?392 ? Interpretive Statements SINUS RHYTHM Compared to ECG 10/19/2019 11:32:52 No significant changes Procedure Note Buddy Allen MD - 05/22/2024 [facility] Test Date: 2024-05-20 Pat Name: AZALIA NERI Department: 85 Room: Gender: Female Cap Cutter: : 2005 Requested By: NIKA FITZGERALD Order Number: [id number] Reading MD: Buddy Allen Measurements Intervals [place] Rate: 70 P: 53 AL: 182 QRS: 47 QRSD: 96 T: 33 QT: 363 QTc: 392 Interpretive Statements SINUS RHYTHM Compared to ECG 10/19/2019 11:32:52 No significant changes us Nika WOOD-TIP ECG ORDERABLES Final Re sult [facility] RAD documented in this encounter Visit Diagnoses Diagnosis Routine sports physical exam Other general medical examination for administrative purposes Family history of sudden Family history of other condition documented in this encounter Additional Health Concerns Assessment Noted Time PHQ-9 Depression Total Score: 0 10/28/19 24 4:50 PM HELIUM ARC WELDER documented as of this encounter Care Teams Sfdc Solution Architect Relationship Specialty Start Date End Date Nika Fitzgerald FNP-BC [address] [place] [address] PCP - General Nurse Practitioner Family 10/28/23 documented as of this encounter
--- OUTSIDE RECORDS SUMMARY | 2024-10-25 17:05 | XMS_ITS | Encounter Summary ---
Author Organization [facility] Address [address] [facility] [place] [address] Care Team Providers Care Cnc Operator Machinist Name Role Phone Samina Bui MD Unavailable Tian Jenkins MD Primary Care Provider [phone] Encounter Details Date Type Department Care Team [...] on filedocumented in this encounter Care Teams Cnc Operator Machinist Relationship Specialty Start Date End Date Samina Bui MD PCP - Pediatrics 08/25/09 Tian Jenkins MD [address] [place] [address] PCP - General 07/08/10 documented as of this encounter
--- OUTSIDE RECORDS SUMMARY | 2024-10-25 17:05 | XMS_ITS | Encounter Summary ---
Author Organization [facility] Address [address] [place] [address]. [place] [address] [place] [address] Care Team Providers Care Software Engineer Intern Name Role Phone Monet SilverP- Primary Care [...] Total Score: 0 10/28/19 24 4:50 PM INCLUSION SPECIAL EDUCATOR documented as of this encounter Care Teams Software Engineer Intern Relationship Specialty Start Date End Date Monet Silver FNP-TIP [address], [address] [place] [address] PCP - General Nurse Practitioner Family 10/28/23 documented as of this encounter
--- OUTSIDE RECORDS SUMMARY | 2024-10-25 17:05 | XMS_ITS | Encounter Summary ---
Author Organization [facility] Address [address] [place] [address]. [place] [address] [place] [address] Care Team Providers Care Farm Equipment Assembler Name Role Phone Monet SilverP- Primary [...] Total Score: 0 10/28/19 24 4:50 PM SERVICE INSPECTOR documented as of this encounter Care Teams Farm Equipment Assembler Relationship Specialty Start Date End Date Monet Silver FNP-TIP [address] [address], [address] [place] [address] PCP - General Nurse Practitioner Family 10/28/23 documented as of this encounter
--- OUTSIDE RECORDS SUMMARY | 2024-10-25 17:05 | XMS_ITS | Encounter Summary ---
Author Organization [facility] Address [address] [place] [address]. [place] [address] [place] [address] Care Team Providers Care Powder Cutting Operator Name Role Phone Adrianne Monet Mccollum [facility] Primary Care Provider + Reason for Visit * Reason Onset Date Comments Schedule Test 11/19/2023 48hr monitor Encounter Details Date Type Department Care Team (Late st Contact Info) Description 11/19/2023 Telephone [facility] [place] [address] [address] Kierra العلي RMA Schedule Test (48hr monitor) [...] patient to contact our office to schedule RUMENT AND CONTROLS TECHNICIAN documented in this encounter Plan of Treatment Not on file documented as of this encounter Visit Diagnoses Not on filedocumented in this encounter Additional Health Concerns Assessment Noted Time PHQ-9 Depression Total Score: 0 10/28/19 4:50 PM INSTRUMENT AND CONTROLS TECHNICIAN documented as of this encounter Care Teams Powder Cutting Operator Relationship Specialty Start Date End Date Monet Silver, PLAYER DEVELOPMENT MANAGER- [address] [address], [address] [place] [address] PCP - General Nurse Practitioner Family 10/28/23 documented as of this encounter
--- OUTSIDE RECORDS SUMMARY | 2024-10-25 17:05 | XMS_ITS | Patient Health Summary ---
Author Organization [facility] Address [address] [place] [address] Care Team Providers Care Show Girl Name Role Phone Samina Bui MD Unavailable Tian Jenkins MD Primary Care Provider [phone] Note from [facility],non-owned Affiliates and Associated Physician Practices is amultiple site organization consisting of ambulatory clinics and hospital sitesin [place], [place], [place] and [place]. This disclosure is being madepursuant to the Care Everywhere program and may not contain all information available regarding this patient. Last updated 18.[facility] Allergies No known active allergies Medications * [...] PM CDT 07/08/2010 ?6:31 PM Azalia Neri [id number] History Chief Complaint Patient presents with ? ? Laceration ??pt was running, tripped and fell into [facility]. ?? Incident around 1430. ??No LOC. [...] to verify the correct patient, procedure, equipment, wind farm support specialist and site/side marked as required. [...] to verify the correct patient, procedure, equipment, wind farm support specialist and site/side marked as required. [...] CDT 07/08/2010 6:31 PM Azalia E Halle [id number] History Chief Complaint Patient presents with ? ? Laceration pt was running, tripped and fell into [facility]. Incidentaround 1430. No LOC. No vomiting. [...] called to verifythe correct patient, procedure, equipment, wind farm support specialist and site/sidemarked as required. ASA [...] called to verifythe correct patient, procedure, equipment, wind farm support specialist and site/sidemarked as required. ASA [...] PM CDT 07/08/2010 ?6:31 PM Azalia Neri [id number] History Chief Complaint Patient presents with ? ? Laceration ??pt was running, tripped and fell into [facility]. ?? Incident around 1430. ??No LOC. [...] to verify the correct patient, procedure, equipment, wind farm support specialist and site/side marked as required. [...] to verify the correct patient, procedure, equipment, wind farm support specialist and site/side marked as required. [...] PM CDT 07/08/2010 6:31 PM Azalia Neri [id number] History Chief Complaint Patient presents with ? ? Laceration pt was running, tripped and fell into corner of [facility]. Incidentaround 1430. No LOC. No vomiting. about [...] called to verifythe correct patient, procedure, equipment, wind farm support specialist and site/sidemarked as required. ASA [...] called to verifythe correct patient, procedure, equipment, wind farm support specialist and site/sidemarked as required. ASA [...] MD PROCEDURE/MINOR SURG ICAL ORDERABLES Care Teams Show Girl Relationship Specialty Start Date End Date Samina Bui MD PCP - Pediatrics 08/25/09 Tian Jenkins MD [address] [place] [address] PCP - General 07/08/10
--- OUTSIDE RECORDS SUMMARY | 2024-10-25 17:05 | XMS_ITS | Encounter Summary ---
Author Organization [facility] Address [facility] [facility] [place] [address] [place] [address] Care Team Providers Care Sheriffs Officer Name Role Phone Monet SilverP- Primary Care [...] Total Score: 0 10/28/19 24 4:50 PM LEATHER WHITENER documented as of this encounter Care Teams Sheriffs Officer Relationship Specialty Start Date End Date Monet Silver FNP-BC [address] [address], [address] [place] [address] PCP - General Nurse Practitioner Family 10/28/23 documented as of this encounter
--- OUTSIDE RECORDS SUMMARY | 2024-10-25 17:05 | XMS_ITS | Encounter Summary ---
Author Organization [facility] Address [address] [place] [address]. [place] [address] [place] [address] Care Team Providers Care Operations Officer Afloat Name Role Phone Christina Reid Primary Care Provider [phone] Encounter Details Date Type Department Care Team [...] Coronavirus/COVID-19? No / Unsure 10/23/2022 8:40 AM DISTRIBUTION SPEC documented as of this encounter Plan of Treatment Not on file documented as of this encounter Visit Diagnoses Not on filedocumented in this encounter Additional Health Concerns Assessment Noted Time PHQ-9 Depression Total Score: 0 12/13/19 22 3:57 PM DISTRIBUTION SPEC documented as of this encounter Care Teams Operations Officer Afloat Relationship Specialty [place] [address] [place] [address] PCP - General PHYSICIAN IMPREGNATOR HELPER 12/29/19 10/27/23 documented as of this encounter
--- OUTSIDE RECORDS SUMMARY | 2024-10-25 17:05 | XMS_ITS | Encounter Summary ---
Author Organization [facility] Address [facility] [facility] [place] [address] [place] [address] Care Team Providers Care Grants Manager Name Role Phone Monet SilverP- Primary Care [...] Total Score: 0 10/28/19 24 4:50 PM BUNG SEWER documented as of this encounter Care Teams Grants Manager Relationship Specialty Start Date End Date Monet Silver FNP-BC [address] [address], [address] [place] [address] PCP - General Nurse Practitioner Family 10/28/23 documented as of this encounter
--- OUTSIDE RECORDS SUMMARY | 2024-10-25 17:05 | XMS_ITS | Encounter Summary ---
Author Organization [facility] Address [address] [place] [address]. [place] [address] [place] [address] Care Team Providers Care Measuring Machine Operator Name Role Phone Monet SilverP- Primary Care [...] Total Score: 0 10/28/19 24 4:50 PM HARNESS FITTER documented as of this encounter Care Teams Measuring Machine Operator Relationship Specialty Start Date End Date Monet Silver FNP-TIP [address] [address], [address] [place] [address] PCP - General Nurse Practitioner Family 10/28/23 documented as of this encounter
--- OUTSIDE RECORDS SUMMARY | 2024-10-25 17:05 | XMS_ITS | Encounter Summary ---
Author Organization [facility] Address [address] [place] [address]. [place] [address] [place] [address] Care Team Providers Care Manager Multicultural Name Role Phone Christina Reid Primary Care Provider [phone] Monet Silver [facility] Primary Care Provider + Encounter [...] Total Score: 0 12/13/19 22 3:57 PM WARPER CREELER documented as of this encounter Care Teams Manager Multicultural Relationship Specialty [place] [address] [place] [address] PCP - General PHYSICIAN DROP PIT WORKER 12/29/19 10/27/23 Monet Silver, [facility]- [address] [address], [address] [place] [address] PCP - General Nurse Practitioner Family 10/28/23 documented as of this encounter
--- OUTSIDE RECORDS SUMMARY | 2024-10-25 17:05 | XMS_ITS | Encounter Summary ---
Author Organization [facility] Address [facility] [place] [address] [place] [address] Care Team Providers Care Buckle Attacher Name Role Phone Adrianne Monet Mccollum [facility] Primary Care Provider + Reason for Visit * Reason Comments Follow Up Left foot Encounter Details Date Type Department Care Team (Late st Contact Info) Description 04/22/2024 10:00 AM CDT Office Visit [facility] - [place] [address] [place] [address] China Zuleta MD [address] [place] [address] Follow Up (Left foot) Social History Tobacco [...] Total Score: 0 10/28/19 24 4:50 PM SENIOR C DEVELOPER documented as of this encounter Care Teams Buckle Attacher Relationship Specialty Start Date End Date Monet Silver, METAL TILE SETTER- [address] [facility], [address] [place] [address] PCP - General Nurse Practitioner Family 10/28/23 documented as of this encounter
--- OUTSIDE RECORDS SUMMARY | 2024-10-25 17:05 | XMS_ITS | Encounter Summary ---
Author Organization [facility] Address [facility] [place] [address] [place] [address] Care Team Providers Care Seasonal Recruiter Name Role Phone Monet SilverP- Primary Care [...] Total Score: 0 10/28/19 24 4:50 PM TEXTILE CONVERTER documented as of this encounter Care Teams Seasonal Recruiter Relationship Specialty Start Date End Date Monet Silver FNP-BC [address] [address], [address] [place] [address] PCP - General Nurse Practitioner Family 10/28/23 documented as of this encounter
--- OUTSIDE RECORDS SUMMARY | 2024-10-25 17:05 | XMS_ITS | Encounter Summary ---
Author Organization [facility] Address [facility] [facility] [place] [address] [place] [address] Care Team Providers Care Magnetic Tape Typewriter Operator Name Role Phone Monet Silver [facility] Primary Care Provider + Reason for Visit * Reason Onset Date Comments Information 03/19/2024 Encounter Details Date Type Department Care Team (Late st Contact Info) Description 03/19/2024 Telephone [facility] - [place] [address] [place] [address] Elias Boland MD [address] [place] [address] Information Social History Tobacco Use Types Packs/Day [...] Pt stated she was already contacted by [facility] and scheduled for the MRI on 03/31. [...] Depression Total Score: 0 10/28/19 4:50 PM BUILDING INSPECTION ENGINEER documented as of this encounter Care Teams Magnetic Tape Typewriter Operator Relationship Specialty Start Date End Date Monet Silver, [facility]- [address], [address] [place] [address] PCP - General Nurse Practitioner Family 10/28/23 documented as of this encounter
--- OUTSIDE RECORDS SUMMARY | 2024-10-25 17:05 | XMS_ITS | Encounter Summary ---
Author Organization [facility] Address [facility] [place] [address] [place] [address] Care Team Providers Care Legal Manager Name Role Phone Christina Reid Primary Care Provider [phone] Reason for Visit * Reason Comments Anxiety Panic Attack Encounter Details Date Type Department Care Team (Late st Contact Info) Description 10/23/2022 8:40 AM HOME HOSPICE AIDE Office Visit [facility] Family [facility] Internal Medicine [facility] [address] [place] [address] [place] [address] [place] [address] Anxiety; Panic Attack Social History [...] Coronavirus/COVID-19? No / Unsure 10/23/2022 8:40 AM HOME HOSPICE AIDE documented as of this encounter Last Filed Vital Signs Vital Sign Reading Time Taken Comments Blood Pressure 110/69 10/23/2022 8:43 AM HOME HOSPICE AIDE Pulse 93 10/23/2022 8:43 AM HOME HOSPICE AIDE Temperature 36.6 ??C (97.8 ??F) 10/23/2022 8:43 AM CS T Respiratory Rate 18 10/23/2022 8:43 AM HOME HOSPICE AIDE Oxygen Saturation 100% 10/23/2022 8:43 AM HOME HOSPICE AIDE Inhaled Oxygen Concentration - - Weight 69.4 kg (153 lb) 10/23/2022 8:43 AM HOME HOSPICE AIDE Height 180.3 cm (5' 11 ) 10/23/2022 8:43 AM HOME HOSPICE AIDE Body Mass Index 21.34 10/23/2022 8:43 AM HOME HOSPICE AIDE Body Mass Index Percentile 51.66% 10/23/2022 8:4 3 AM HOME HOSPICE AIDE Growth Chart: [facility] (Girls, 2- 20 Years) documented in this encounter Progress Notes * CHAPARRITA Maria - 10/23/2022 8:40 AM CST Images from the original note were not included. _ Reason for Visit: Anxiety and Panic Attack History of Present Illness: [facility] Azalia Neri is a 16-year-old female [...] 1. Routine general medical examination at a [facility] facility Z00.00 V70.0 PATIENT ENCOUNTER STATUS [...] Portions of this note were dictated using Cynny speech recognition software. Occasional wrong wordor sound-alike substitutions may have occurred due to the inherent limitations of voice recognition software. Please read the chart carefully and recognize, using context, where the substitutions may have occurred. Christina Reid PA-C evaluated and Dr Buddy Allen reviewed and agrees with plan. Cosigned by Buddy Allen MD at 10/23/2022 1:16 PM HOME HOSPICE AIDE HOSPICE AIDE HOSPICE AIDE documented in this encounter Plan of Treatment Not on file documented as of this encounter Results * LIPID PANEL (10/23/2022 9:49 AM HOME HOSPICE AIDE) [facility] CHOLESTEROL 107 <200.0 MG/DL 10/23/2022 10:58 AM [facility] TRIGLYCERIDES 49 <150 MG/DL 10/23/2022 10:58 AM [facility] HDL 45 >40.0 MG/DL 10/23/2022 10:58 AM [facility] LDL (CALCULATED) 52 <100 MG/DL 10/23/19 10:58 AM [facility] NON HDL CHOLESTEROL 62 <130 MG/DL 10/23 10:58 AM [facility] CHOL/HDL RATIO 2.4 0.0 - 4.5 10/23/2022 10:58 AM [facility] VLDL CALCULATION 10 5 - 55 MG/DL 10/23/2022 10:58 AM [facility] LIPID INTERPRETATION 10/23/2022 10:58 AM [facility] Comment: NIH CONCENSUS REPORT RECOMMENDATIONS: [...] ?LDL ? >=160 ?>=130 10/23/2022 9:49 AM HOME HOSPICE AIDE us [facility] Final Result Performing Organization Address [facility]/State/ZIP Co de Phone Number [facility] [address] [place] [address], * (ABNORMAL) COMPREHENSIVE METABOLIC PANEL (10/23/2022 9:49 AM HOME HOSPICE AIDE) GLUCOSE 91 70 - 99 MG/DL 10/23/2022 10:58 AM HOME HOSPICE AIDE [facility] BUN 10 7 - 18 MG/DL 10/23/2022 10:58 AM [facility] CREATININE S/P/B 0.68 0.55 - 1.02 MG/DL 10/23/2022 10:58 AM [facility] SODIUM S/P/B 140 136 - 145 MMOL/L 10/23/2022 10:58 AM [facility] POTASSIUM S/P/B 4.1 3.5 - 5.1 MMOL/L 10/23/2022 10:58 AM [facility] CHLORIDE S/P/B 103 100 - 108 MMOL/L 10/23/2022 10:58 AM [facility] CO2 26.6 21 - 32 MMOL/L 10/23/2022 10:58 AM [facility] CALCIUM S/P/B 9.0 8.5 - 10.1 MG/DL 10/23/2022 10:58 AM [facility] BILIRUBIN TOTAL S/P/B 0.7 0.2 - 1.1 MG/DL 10/23/2022 10:58 AM [facility] TOTAL PROTEIN S/P/B 7.7 6.4 - 8.2 G/DL 10/23/2022 10:58 AM [facility] ALBUMIN S/P/B 4.1 3.4 - 5.0 G/DL 10/23/2022 10:58 AM [facility] AST 14(L) 15 - 37 U/L 10/23/2022 10:58 AM [facility] ALT 8(L) 14 - 55 U/L 10/23/2022 10:58 AM [facility] ALKALINE PHOSPHATASE S/P/B 48(L) 50 - 136 U/L 10/23/2022 10:58 AM [facility] ANION GAP 10.4 5 - 15 MMOL/L 10/23/2022 10:58 AM [facility] BUN CREATININE RATIO 14.7 6 - 26 10/23/2022 10:58 AM [facility] A/G RATIO 1.1 1.0 - 2.0 RATIO 10/23/2022 10:58 AM [facility] GFR ESTIMATE NOT CALCULATED ML/MIN/1. 73 M2 10/23/2022 10:58 AM [facility] Comment: NOTE: eGFR is not calculated for patients <18 years of age. This is an estimated GFR calculation using the new CKD EPI creatinine equation without race and so does not require a correction factor for race. This estimated GFR should not be used for calculating drug doses. 10/23/2022 9:49 AM HOME HOSPICE AIDE Christina [facility] Final Result Performing Organization Address City/[facility]/ZIP Co de Phone Number [facility] [address] [place] [address], [place] [phone] * TSH W/REFLEX (10/23/2022 9:49 AM HOME HOSPICE AIDE) TSH 1.213 0.358 - 3.74 uIU/ML 10/23/2022 10:58 AM HOME HOSPICE AIDE [facility] Comment: HIGH DOSES OF BIOTIN MAY INTERFERE WITH THIS TEST RESULT. CORRELATION TO CLINICAL HISTORY AND PRESENTATION RECOMMENDED. FREE T4 NOT INDICATED 10/23/2022 9:49 AM HOME HOSPICE AIDE us Christina [facility] Final Result Performing Organization Address City/[facility]/ZIP Co de Phone Number [facility] [address] [place] [address], [place] [phone] * (ABNORMAL) CBC W/DIFF AUTOMATED (10/23/2022 9:49 AM HOME HOSPICE AIDE) WBC 5.23 4.2 - 9.4 x10'3/uL 10/23/2022 10:33 AM [facility] RBC 4.51 3.90 - 4.96 x10'6/uL 10/23/2022 10:33 AM [facility] HGB 13.1 10.8 - 13.3 G/DL 10/23/2022 10:33 AM [facility] HCT 40.0(H) 32.4 - 39.5 % 10/23/2022 10:33 AM [facility] MCV 88.7 76.9 - 90.6 FL 10/23/2022 10:33 AM [facility] MCH 29.0 24.8 - 29.5 PG 10/23/2022 10:33 AM [facility] MCHC 32.8 31.8 - 34.6 G/DL 10/23/2022 10:33 AM [facility] RDW 12.6 12.4 - 14.9 % 10/23/2022 10:33 AM [facility] PLT 213 189 - 394 x10'3/uL 10/23/2022 10:33 AM [facility] MPV 11.3 9.6 - 11.7 FL 10/23/2022 10:33 AM [facility] RBC MORPHOLOGY NORMAL 10/23/2022 10:33 AM [facility] PLT MORPH. NORMAL 10/23/2022 10:33 AM [facility] WBC MORPHOLOGY NORMAL 10/23/2022 10:33 AM [facility] LYMPHOCYTES % 35.2 15.8 - 45.0 % 10/23/2022 10:33 AM [facility] NEUTROPHILS % 53.5 42.1 - 71.9 % 10/23/2022 10:33 AM [facility] MONOCYTES % 7.8 5.7 - 12.5 % 10/23/2022 10:33 AM HOME HOSPICE AIDE [facility] EOSINOPHILS 2.5 0.0 - 5.6 % 10/23/2022 10:33 AM HOME HOSPICE AIDE [facility] BASOPHILS 0.6 0.0 - 1.3 % 10/23/2022 10:33 AM [facility] ABS. NEUTROPHILS 2.80 1.40 - 6.00 x10'3/uL 10/23/2022 10:33 AM [facility] IMMATURE GRANS % 0.4 0.0 - 0.5 % 10/23/2022 10:33 AM [facility] ABS. LYMPHOCYTES 1.84 0.80 - 4.70 x10'3/uL 10/23/2022 10:33 AM [facility] 10/23/2022 9:49 AM HOME HOSPICE AIDE us Christina [facility] Final Result Performing Organization Address City/State/[facility] Co de Phone Number [facility] [address] [place] [address], documented in this encounter Visit Diagnoses Diagnosis Routine general medical examination at a health care facility- Primary Situational anxiety Other anxiety states documented in this encounter Additional Health Concerns Assessment Noted Time PHQ-9 Depression Total Score: 0 12/13/19 22 3:57 PM HOME HOSPICE AIDE documented as of this encounter Care Teams Legal Manager Relationship Specialty [place] [address] [place] [address] PCP - General PHYSICIAN AFTERSCHOOL BABYSITTER 12/29/19 10/27/23 documented as of this encounter
--- OUTSIDE RECORDS SUMMARY | 2024-10-25 17:05 | XMS_ITS | Encounter Summary ---
Author Organization [facility] Address [address] [place] [address]. [place] [address] [place] [address] Care Team Providers Care Knife Sharpener Name Role Phone Monet SilverP- Primary Care [...] Total Score: 0 10/28/19 24 4:50 PM CIGAR MAKER documented as of this encounter Care Teams Knife Sharpener Relationship Specialty Start Date End Date Monet Silver FNP-TIP [address] [address], [address] [place] [address] PCP - General Nurse Practitioner Family 10/28/23 documented as of this encounter
--- OUTSIDE RECORDS SUMMARY | 2024-10-25 17:05 | XMS_ITS | Encounter Summary ---
Author Organization [facility] Address [address] [place] [address]. [place] [address] [place] [address] Care Team Providers Care Data Collection Associate Name Role Phone Adrianne Monet Mccollum [facility] Primary Care Provider + Reason for Visit * Reason Onset Date Comments Schedule Test 11/11/2023 48hr monitor Encounter Details Date Type Department Care Team (Late st Contact Info) Description 11/11/2023 Telephone [facility] [address] [address] Kierra العلي RMA Schedule Test (48hr monitor) [...] schedule 48hr monitor per Monet Silver NP INE HAND documented in this encounter Plan of Treatment Not on file documented as of this encounter Visit Diagnoses Not on filedocumented in this encounter Additional Health Concerns Assessment Noted Time PHQ-9 Depression Total Score: 0 10/28/19 24 4:50 PM MACHINE HAND documented as of this encounter Care Teams Data Collection Associate Relationship Specialty Start Date End Date Monet Silver, DISABILITIES CAREGIVER- [address] [facility], [address] [place] [address] PCP - General Nurse Practitioner Family 10/28/23 documented as of this encounter
--- OUTSIDE RECORDS SUMMARY | 2024-10-25 17:05 | XMS_ITS | Encounter Summary ---
Author Organization [facility] Address [address] [place] [address] Care Team Providers Care Residential Roofer Helper Name Role Phone Samina Bui MD Unavailable Tian Jenkins MD Primary Care Provider + [phone] Reason for Visit * Reason Comments Laceration pt was running, trip ped and [facility] Incident around 1430. No LOC. No vomiting. about 1.5cm laceration. bleeding controlled. Encounter Details Date Type Department Care Team (Late st Contact Info) Description 07/08/2010 6:34 PM CDT - 07/08/2010 9:51 PM CDT Emergency ER at [address] [address] Conversion, Doctor Mila Love MD [address] [place] [address] [place] [address] Laceration of Face Discharge Disposition: [...] Document Re-Released: 10/26/2008 ExitCare?? Patient Information ??2009 [employer]. Lacerations on the Face Cuts on the [...] Document Re-Released: 07/24/2007 ExitCare?? Patient Information ??2009 [employer]. Post Procedural Sedation, Child Your child has [...] normal. Document Released: 10/07/2006 Document Re-Released: 04/19/2008 [employer]?? Patient Information ??2009 [employer]. * Discharge Instructions* Document, Scanned - 07/10/2010 [...] ED SEDATION 07/08/2010 6:31 PM Azalia Neri [id number] History Chief Complaint Patient presents with ??? Laceration pt was running, tripped and fell into corner of [facility] cabinet. Incident around 1430. No LOC. No [...] to verify the correct patient, procedure, equipment, support group manager and site/side marked as required. ASA Class [...] to verify the correct patient, procedure, equipment, support group manager and site/side marked as required. ASA Class [...] PM CDT 07/08/2010 6:29 PM Azalia Neri [id number] History Chief Complaint Patient presents with ??? Laceration pt was running, tripped and fell into corner of [facility] cabinet. Incident around 1430. No LOC. No [...] PM CDT 07/08/2010 ?6:31 PM Azalia Neri [id number] History Chief Complaint Patient presents with ? ? Laceration ??pt was running, tripped and fell into corner of [employer] cabinet. ?? Incident around 1430. ??No LOC. [...] to verify the correct patient, procedure, equipment, support group manager and site/side marked as required. ASA Class [...] to verify the correct patient, procedure, equipment, support group manager and site/side marked as required. ASA Class [...] PM CDT 07/08/2010 6:31 PM Azalia Neri [id number] History Chief Complaint Patient presents with ? ? Laceration pt was running, tripped and fell into corner of [facility] cabinet. Incidentaround 1430. No LOC. No vomiting. [...] called to verifythe correct patient, procedure, equipment, support group manager and site/sidemarked as required. ASA Class I-No [...] called to verifythe correct patient, procedure, equipment, support group manager and site/sidemarked as required. ASA Class I-No [...] PM CDT 07/08/2010 ?6:31 PM Azalia Neri [id number] History Chief Complaint Patient presents with ? ? Laceration ??pt was running, tripped and fell into corner of [employer] cabinet. ?? Incident around 1430. ??No LOC. [...] to verify the correct patient, procedure, equipment, support group manager and site/side marked as required. ASA Class [...] to verify the correct patient, procedure, equipment, support group manager and site/side marked as required. ASA Class [...] PM CDT 07/08/2010 6:31 PM Azalia Neri [id number] History Chief Complaint Patient presents with ? ? Laceration pt was running, tripped and fell into corner of [facility]. Incidentaround 1430. No LOC. No vomiting. [...] called to verifythe correct patient, procedure, equipment, support group manager and site/sidemarked as required. ASA Class I-No underlying medical problems Likelihood of discomfort High Ability to remain immobile Poor Anticipated level of sedation Moderate History of sleep apnea/snoring No Limited ROM-head,mouth,neck No Loose or chipped teeth No Chest assessment Clear Heart assessment Regular Rhythm Patient sedated: yes Sedation Date/Time: 07/08/2010 8:30 PM Performed by: MILA LOVE Authorized by: MIAL LOVE Consent: Written consent obtained. Consent given [...] called to verifythe correct patient, procedure, equipment, support group manager and site/sidemarked as required. ASA Class I-No [...] Given 07/08/2010 8:25 PM CDT 50 mg wqhrrnajr-hjpaebxczwu-fvrgcyaeem (LET) solution 3 mL 3 mL (0.13 [...] ($ Given - Prov ider: Ashlee Cruz) psadvklvt-tlzpfcujygs-ognjlpseyt (LET) solution 3 mL (COMPLETED) 3 mL [...] RN) documented in this encounter Care Teams Residential Roofer Helper Relationship Specialty Start Date End Date Samina Bui MD PCP - Pediatrics 08/25/09 Tian Jenkins MD [address] [place] [address] PCP - General 07/08/10 documented as of this encounter
--- OUTSIDE RECORDS SUMMARY | 2024-10-25 17:05 | XMS_ITS | Encounter Summary ---
Author Organization [facility] Address [facility] [place] [address] [place] [address] Care Team Providers Care Actor Understudy Name Role Phone Christina Reid Primary Care Provider Encounter Details Date Type Department Care Team (Latest Contact Info) Description 10/23/2022 9:25 AM HEAD AUTOMATIC SAWYER - 10/23/2022 11:59 PM [facility] Hospital Encounter [facility] [address] [place], [place] [id number] [place] [address] [place], [place] [id number] Discharge Disposition: Home or Self Care (Routine [...] Coronavirus/COVID-19? No / Unsure 10/23/2022 8:40 AM HEAD AUTOMATIC SAWYER documented as of this encounter Medications at [...] Comments TSH W/REFLEX Routine 10/23/2022 9:49 AM HEAD AUTOMATIC SAWYER Routine general medical examination at a [facility] care facility COMPREHENSIVE METABOLIC PANEL Routine 10/23/2022 9:49 AM HEAD AUTOMATIC SAWYER Routine general medical examination at a [facility] care facility LIPID PANEL Routine 10/23/2022 9:49 AM HEAD AUTOMATIC SAWYER Routine general medical examination at a [facility] care facility CBC W/DIFF AUTOMATED Routine 10/23/2022 9:49 AM HEAD AUTOMATIC SAWYER Routine general medical examination at [facility] documented in this encounter Results * LIPID PANEL (10/23/2022 9:49 AM HEAD AUTOMATIC SAWYER) CHOLESTEROL 107 <200.0 MG/DL 10/23/2022 10:58 AM HEAD AUTOMATIC SAWYER [facility] TRIGLYCERIDES 49 <150 MG/DL 10/23/2022 10:58 AM HEAD AUTOMATIC SAWYER [facility] HDL 45 >40.0 MG/DL 10/23/2022 10:58 AM [facility] LDL (CALCULATED) 52 <100 MG/DL 10/23/19 10:58 AM [facility] NON HDL CHOLESTEROL 62 <130 MG/DL 10/23 10:58 AM [facility] CHOL/HDL RATIO 2.4 0.0 - 4.5 10/23/2022 10:58 AM [facility] VLDL CALCULATION 10 5 - 55 MG/DL 10/23/2022 10:58 AM [facility] LIPID INTERPRETATION 10/23/2022 10:58 AM [facility] Comment: NIH CONCENSUS REPORT RECOMMENDATIONS: [...] ?LDL ? >=160 ?>=130 10/23/2022 9:49 AM HEAD AUTOMATIC SAWYER Christina [facility] Final Result [facility] [address] [place] [address], * (ABNORMAL) COMPREHENSIVE METABOLIC PANEL (10/23/2022 9:49 AM HEAD AUTOMATIC SAWYER) Pathologist [facility] GLUCOSE 91 70 - 99 MG/DL 10/23/2022 10:58 AM [facility] BUN 10 7 - 18 MG/DL 10/23/2022 10:58 AM [facility] CREATININE S/P/B 0.68 0.55 - 1.02 MG/DL 10/23/2022 10:58 AM [facility] SODIUM S/P/B 140 136 - 145 MMOL/L 10/23/2022 10:58 AM [facility] POTASSIUM S/P/B 4.1 3.5 - 5.1 MMOL/L 10/23/2022 10:58 AM [facility] CHLORIDE S/P/B 103 100 - 108 MMOL/L 10/23/2022 10:58 AM [facility] CO2 26.6 21 - 32 MMOL/L 10/23/2022 10:58 AM [facility] CALCIUM S/P/B 9.0 8.5 - 10.1 MG/DL 10/23/2022 10:58 AM [facility] BILIRUBIN TOTAL S/P/B 0.7 0.2 - 1.1 MG/DL 10/23/2022 10:58 AM [facility] TOTAL PROTEIN S/P/B 7.7 6.4 - 8.2 G/DL 10/23/2022 10:58 AM [facility] ALBUMIN S/P/B 4.1 3.4 - 5.0 G/DL 10/23/2022 10:58 AM [facility] AST 14(L) 15 - 37 U/L 10/23/2022 10:58 AM [facility] ALT 8(L) 14 - 55 U/L 10/23/2022 10:58 AM [facility] ALKALINE PHOSPHATASE S/P/B 48(L) 50 - 136 U/L 10/23/2022 10:58 AM [facility] ANION GAP 10.4 5 - 15 MMOL/L 10/23/2022 10:58 AM [facility] BUN CREATININE RATIO 14.7 6 - 26 10/23/2022 10:58 AM [facility] A/G RATIO 1.1 1.0 - 2.0 RATIO 10/23/2022 10:58 AM [facility] GFR ESTIMATE NOT CALCULATED ML/MIN/1. 73 M2 10/23/2022 10:58 AM [facility] Comment: NOTE: eGFR is not calculated for patients <18 years of age. This is an estimated GFR calculation using the new CKD EPI creatinine equation without race and so does not require a correction factor for race. This estimated GFR should not be used for calculating drug doses. 10/23/2022 9:49 AM HEAD AUTOMATIC SAWYER us Christina [facility] Final Result [facility] [address] [place] [address], * TSH W/REFLEX (10/23/2022 9:49 AM HEAD AUTOMATIC SAWYER) TSH 1.213 0.358 - 3.74 uIU/ML 10/23/2022 10:58 AM [facility] Comment: HIGH DOSES OF BIOTIN MAY INTERFERE WITH THIS TEST RESULT. CORRELATION TO CLINICAL HISTORY AND PRESENTATION RECOMMENDED. FREE T4 NOT INDICATED 10/23/2022 9:49 AM HEAD AUTOMATIC SAWYER Christina [facility] Final Result [facility] [address] [place] [address], * (ABNORMAL) CBC W/DIFF AUTOMATED (10/23/2022 9:49 AM HEAD AUTOMATIC SAWYER) WBC 5.23 4.2 - 9.4 x10'3/uL 10/23/2022 10:33 AM [facility] RBC 4.51 3.90 - 4.96 x10'6/uL 10/23/2022 10:33 AM [facility] HGB 13.1 10.8 - 13.3 G/DL 10/23/2022 10:33 AM [facility] HCT 40.0(H) 32.4 - 39.5 % 10/23/2022 10:33 AM [facility] MCV 88.7 76.9 - 90.6 FL 10/23/2022 10:33 AM [facility] MCH 29.0 24.8 - 29.5 PG 10/23/2022 10:33 AM [facility] MCHC 32.8 31.8 - 34.6 G/DL 10/23/2022 10:33 AM [facility] RDW 12.6 12.4 - 14.9 % 10/23/2022 10:33 AM [facility] PLT 213 189 - 394 x10'3/uL 10/23/2022 10:33 AM [facility] MPV 11.3 9.6 - 11.7 FL 10/23/2022 10:33 AM [facility] RBC MORPHOLOGY NORMAL 10/23/2022 10:33 AM [facility] PLT MORPH. NORMAL 10/23/2022 10:33 AM [facility] WBC MORPHOLOGY NORMAL 10/23/2022 10:33 AM [facility] LYMPHOCYTES % 35.2 15.8 - 45.0 % 10/23/2022 10:33 AM [facility] NEUTROPHILS % 53.5 42.1 - 71.9 % 10/23/2022 10:33 AM [facility] MONOCYTES % 7.8 5.7 - 12.5 % 10/23/2022 10:33 AM [facility] EOSINOPHILS 2.5 0.0 - 5.6 % 10/23/2022 10:33 AM [facility] BASOPHILS 0.6 0.0 - 1.3 % 10/23/2022 10:33 AM [facility] ABS. NEUTROPHILS 2.80 1.40 - 6.00 x10'3/uL 10/23/2022 10:33 AM [facility] IMMATURE GRANS % 0.4 0.0 - 0.5 % 10/23/2022 10:33 AM [facility] ABS. LYMPHOCYTES 1.84 0.80 - 4.70 x10'3/uL 10/23/2022 10:33 AM [facility] 10/23/2022 9:49 AM HEAD AUTOMATIC SAWYER Christina [facility] Final Result [facility] [address] [place] [address], documented in this encounter Visit Diagnoses Diagnosis Routine general medical examination at a health care facility documented in this encounter Additional Health Concerns Assessment Noted Time PHQ-9 Depression Total Score: 0 12/13/19 22 3:57 PM HEAD AUTOMATIC SAWYER documented as of this encounter Care Teams Actor Understudy Relationship Specialty [place] [address] [place] [address] PCP - General PHYSICIAN PACKING MACHINE INSPECTOR 12/29/19 10/27/23 documented as of this encounter
--- OUTSIDE RECORDS SUMMARY | 2024-10-25 17:05 | XMS_ITS | Encounter Summary ---
Author Organization [facility] Address [address] [place] [address]. [place] [address] [place] [address] Care Team Providers Care Patient Financial Coordinator Name Role Phone Christina Reid Primary Care Provider [phone] Encounter Details Date Type Department Care Team [...] Total Score: 0 12/13/19 22 3:57 PM RPG PROGRAMMER ANALYST documented as of this encounter Care Teams Patient Financial Coordinator Relationship Specialty [place] [address] [place] [address] PCP - General PHYSICIAN BRIDGE INSPECTOR 12/29/19 10/27/23 documented as of this encounter
--- OUTSIDE RECORDS SUMMARY | 2024-10-25 17:05 | XMS_ITS | Encounter Summary ---
Author Organization [facility] Address [facility]6 [facility] [place] [address] [place] [address] Care Team Providers Care Container Packer Operator Name Role Phone Monet Silver [facility] Primary Care Provider + Encounter Details Date Type Department Care Team (Late st Contact Info) Description 07/24/2024 Orders Only [facility] Medical Group Orthopedic & Sports Medicine - [place] [address] [place] [address] Mike Garcia MD [address] [place] [address] Social History Tobacco Use Types Packs/Day Years [...] Depression Total Score: 0 10/28/19 4:50 PM IT CONSULTING DIRECTOR documented as of this encounter Care Teams Container Packer Operator Relationship Specialty Start Date End Date Monet Silver, ROUTE SALES DELIVERY DRIVER- [address], [address] [place] [address] PCP - General Nurse Practitioner Family 10/28/23 documented as of this encounter
--- OUTSIDE RECORDS SUMMARY | 2024-10-25 17:05 | XMS_ITS | Encounter Summary ---
Author Organization [facility] Address [facility] [place] [address] [place] [address] Care Team Providers Care Tc Operator Name Role Phone Monet SilverP- Primary [...] Total Score: 0 10/28/19 24 4:50 PM HEALTH AND SAFETY REPRESENTATIVE documented as of this encounter Care Teams Tc Operator Relationship Specialty Start Date End Date Monet Silver FNP-BC [address], [address] [place] [address] PCP - General Nurse Practitioner Family 10/28/23 documented as of this encounter
--- OUTSIDE RECORDS SUMMARY | 2024-10-25 17:05 | XMS_ITS | Encounter Summary ---
Author Organization [facility] Address [facility] [place] [address] [place] [address] Care Team Providers Care Collections Rep Name Role Phone Monet SilverP- Primary Care [...] Total Score: 0 10/28/19 24 4:50 PM GREEN PIPEFITTER documented as of this encounter Care Teams Collections Rep Relationship Specialty Start Date End Date Monet Silver FNP-BC [address], [address] [place] [address] PCP - General Nurse Practitioner Family 10/28/23 documented as of this encounter
--- OUTSIDE RECORDS SUMMARY | 2024-10-25 17:05 | XMS_ITS | Encounter Summary ---
Author Organization [facility] Address [facility] [place] [address] [place] [address] Care Team Providers Care Station Cook Name Role Phone Monet Silver [facility] Primary Care Provider + Encounter Details Date Type Department Care Team (Late st Contact Info) Description 04/22/2024 NaviExpertt Message Enc [facility] Medical Group Family & Internal Medicine [facility] [address] [place] [address] Monet Silver, [facility] [address] [facility] [address] [place] [address] Upcoming Appt. 04/30/24 Social History [...] Total Score: 0 10/28/19 24 4:50 PM ASSESSMENT COUNSELOR documented as of this encounter Care Teams Station Cook Relationship Specialty Start Date End Date Monet Silver, VICE PRESIDENT OF CONSULTING SERVICES- [address], [address] [place] [address] PCP - General Nurse Practitioner Family 10/28/23 documented as of this encounter
--- OUTSIDE RECORDS SUMMARY | 2024-10-25 17:05 | XMS_ITS | Encounter Summary ---
Author Organization [facility] Address [facility] [place] [address] [place] [address] Care Team Providers Care White Hat Hacker Name Role Phone Monet Silver [facility] Primary Care Provider + Reason for Visit * Reason Onset Date Comments Appointment Reminder 03/17/2024 Encounter Details Date Type Department Care Team (Late st Contact Info) Description 03/17/2024 Telephone [facility] Medical Group Orthopedic & Sports Medicine - [place] [address] [place], [place] [id number] Elias Boland MD [address] [place] [address] Appointment Reminder Social History Tobacco Use Types [...] Total Score: 0 10/28/19 24 4:50 PM COMPENSATION AND BENEFITS ADMINISTRATOR documented as of this encounter Care Teams White Hat Hacker Relationship Specialty Start Date End Date Monet Silver, NOISE ABATEMENT ENGINEER- [address], [address] [place] [address] PCP - General Nurse Practitioner Family 10/28/23 documented as of this encounter
--- OUTSIDE RECORDS SUMMARY | 2024-10-25 17:05 | XMS_ITS | Encounter Summary ---
Author Organization [facility] Address [facility] [place] [address] [place] [address] Care Team Providers Care Customs Compliance Manager Name Role Phone Monet Silver [facility] Primary Care Provider + Reason for Referral * Imaging (Urgent) - Closed Specialty Diagnoses / Procedures Referred By Contac t Referred To Contact RADIOLOGY Diagnoses Left foot pain Procedures MRI FOOT LT WO CON Héctor Dumas MD [address] [place] [address] Phone: tel:[phone] fax: Referral ID Status Reason Start Date Expiration Date Visits Re quested Visits Authorized [id number] Closed 03/19/2024 04/18/2025 1 1 Reason for Visit * Imaging (Urgent) - Closed Specialty Diagnoses / Procedures Referred By Contac t Referred To Contact RADIOLOGY Diagnoses Left foot pain Procedures MRI FOOT LT WO CON Héctor Dumas MD [address] [place] [address] Phone: tel: fax: Referral ID Status Reason Start Date Expiration Date Visits Re quested Visits Authorized [id number] Closed 03/19/2024 04/18/2025 1 1 Encounter Details Date Type Department Care Team (Latest Contact Info) Description 03/31/2024 8:09 AM CDT - 03/31/2024 11:59 PM CDT Hospital Encounter [facility] [address] [place] [address] Héctor Dumsa MD [address] [place] [address] Discharge Disposition: Home or Self Care (Routine [...] Depression Total Score: 0 10/28/19 4:50 PM TELECOMMUNICATIONS LINE MECHANIC documented as of this encounter Care Teams Customs Compliance Manager Relationship Specialty Start Date End Date oMnet Silver, SENIOR MATERIALS PLANNER- [address], [address] [place] [address] PCP - General Nurse Practitioner Family 10/28/23 documented as of this encounter
--- OUTSIDE RECORDS SUMMARY | 2024-10-25 17:05 | XMS_ITS | Encounter Summary ---
Author Organization [facility] Address [facility]6 [facility] [place] [address] [place] [address] Care Team Providers Care Governor Assembler Name Role Phone Monet SilverP- Primary [...] Total Score: 0 10/28/19 24 4:50 PM GASOLINE LOCOMOTIVE CRANE OPERATOR documented as of this encounter Care Teams Governor Assembler Relationship Specialty Start Date End Date Monet Silver FNP-BC [address], [address] [place] [address] PCP - General Nurse Practitioner Family 10/28/23 documented as of this encounter
--- OUTSIDE RECORDS SUMMARY | 2024-10-25 17:05 | XMS_ITS | Encounter Summary ---
Author Organization [facility] Address [address] [place] [address]. [place] [address] [place] [address] Care Team Providers Care Cabinet Assembler Name Role Phone Monet Silver [facility] Primary Care Provider + Encounter Details Date Type Department Care Team (Late st Contact Info) Description 05/25/2024 Snakk Media Message Enc [facility] Medical Group Family & Internal Medicine [facility] [address] [place] [address] Britany, [facility] Provider Sports Physical Social History Tobacco Use [...] Total Score: 0 10/28/19 24 4:50 PM BILLET CUTTER documented as of this encounter Care Teams Cabinet Assembler Relationship Specialty Start Date End Date Monet Silver, [facility]- [address], [address] [place] [address] PCP - General Nurse Practitioner Family 10/28/23 documented as of this encounter
--- OUTSIDE RECORDS SUMMARY | 2024-10-25 17:05 | XMS_ITS | Referral Summary ---
Author Organization [facility] Address [address] [facility] [place] [address] Care Team Providers Care Master [place] Name Role Phone Samina Bui MD Unavailable Tian Jenkins MD Primary Care Provider [phone] Source Comments [facility],non-owned Affiliates and Associated Physician Practices is amultiple site organization consisting of ambulatory clinics and hospital sitesin [place], [place], [place] and [place]. This disclosure is being madepursuant to the Care Everywhere program and may not contain all information available regarding this patient. Last updated 18.[facility] [employer] Allergies No known active allergies Medications * [...] of Treatment Not on file Care Teams Master [place] Relationship Specialty Start Date End Date Samina Bui MD PCP - Pediatrics 08/25/09 Tian Jenkins MD [address] [place] [address] PCP - General 07/08/10
--- OUTSIDE RECORDS SUMMARY | 2024-10-25 17:05 | XMS_ITS | Encounter Summary ---
Author Organization [facility] Address [facility]6 [place] [address] [place] [address] Care Team Providers Care Machine Lacer Name Role Phone Monet Silver Primary Care Provider + Reason for Referral * Imaging (Routine) - New Request Specialty Diagnoses / Procedures Referred By Vangie ash Referred To Contact Diagnoses Palpitations Procedures HOLTER MONITOR (ECG) UP TO 48 HRS COMPLETE Monet Silver FNP-BC [address], [address] [place] [phone] Phone: tel: fax: Referral ID Status Reason Start Date Expiration Date V isits Requested Visits Authorized [id number] New Request 10/28/2023 11/26/2024 1 1 CHELL OPERATOR * Imaging (Routine) - New Request Specialty Diagnoses / Procedures Referred By Vangie ash Referred To Contact RADIOLOGY Diagnoses Palpitations Procedures USE ECHOCARDIOGRAM Monet Silver FNP-BC [address], [address] [place] [phone] Phone: tel: fax: Referral ID Status Reason Start Date Expiration Date V isits Requested Visits Authorized [id number] New Request 10/28/2023 10/28/2024 1 1 CHELL OPERATOR Reason for Visit * Reason Comments Medication Follow up medication Encounter Details Date Type Department Care Team (Late st Contact Info) Description 10/28/2023 4:40 PM TWITCHELL OPERATOR Office Visit [facility] Medical Group Family & Internal Medicine [facility] [address] [place] [address] Monet Silver FNP-BC [address] [facility] [address] [place] [address] Medication (Follow up medication) Social [...] Comments Blood Pressure 115/76 10/28/2023 4:46 PM TWITCHELL OPERATOR Pulse 75 10/28/2023 4:46 PM TWITCHELL OPERATOR Temperature 36.3 ??C (97.3 ??F) 10/28/2023 4:46 PM CS T Respiratory Rate 16 10/28/2023 4:4 6 PM TWITCHELL OPERATOR Oxygen Saturation 99% 10/28/2023 4:46 PM TWITCHELL OPERATOR Inhaled Oxygen Concentration - - Weight 75.7 kg (166 lb 12.8 oz) 10/28/2023 4:46 PM TWITCHELL OPERATOR Height 180.3 cm (5' 11 ) 10/28/2023 4:46 PM TWITCHELL OPERATOR Body Mass Index 23.26 10/28/2023 4:46 PM TWITCHELL OPERATOR Body Mass Index Percentile 68.53% 10/28/2023 4:4 6 PM TWITCHELL OPERATOR Growth Chart: [facility] (Girls, 2- 20 Years) documented in this encounter Patient Instructions * Attachments The following attachments cannot be sent through Care Everywhere. * Hydroxyzine, ADULT ([place]ese) documented in this encounter Progress Notes * Monet Silver, TUBE SIZER OPERATOR-BC - 10/28/2023 4:40 PM CST Reason for [...] communicating test results & coordination of care. CHELL OPERATOR documented in this encounter Plan of [...] Depression Total Score: 0 10/28/19 4:50 PM TWITCHELL OPERATOR documented as of this encounter Care Teams Machine Lacer Relationship Specialty Start Date End Date Monet Silver FNP-BC [address], [address] [place] [id number] PCP - General Nurse Practitioner Family 10/28/23 documented as of this encounter
--- OUTSIDE RECORDS SUMMARY | 2024-10-25 17:05 | XMS_ITS | Encounter Summary ---
Author Organization [facility] Address [facility]6 [facility] [place] [address] [place] [address] Care Team Providers Care Educational Assistant Name Role Phone Monet SilverP- Primary Care [...] Total Score: 0 10/28/19 24 4:50 PM CASING TIER documented as of this encounter Care Teams Educational Assistant Relationship Specialty Start Date End Date Monet Silver FNP-BC [address], [address] [place] [address] PCP - General Nurse Practitioner Family 10/28/23 documented as of this encounter
--- OUTSIDE RECORDS SUMMARY | 2024-10-25 17:05 | XMS_ITS | Encounter Summary ---
Author Organization [facility] Address [facility] [place] [address] [place] [address] Care Team Providers Care Printing Plate Maker Name Role Phone Nika Fitzgerald [facility] Primary Care Provider + Reason for Visit * Reason Comments Medication Follow up medication renewal Encounter Details Date Type Department Care Team (Late st Contact Info) Description 04/30/2024 4:40 PM CDT Office Visit [facility] Medical Group Family & Internal Medicine [facility] [address] [place] [address] Nika Fitzgerald, [facility] [id number] [place] [address] [address] [place] [address] Medication (Follow up medication renewal) [...] this encounter Progress Notes * Nika Fitzgerald, RIVET SPINNER-BC - 04/30/2024 4:40 PM CDT Reason for [...] be released to patient pending EKG results. [facility] Certificate of Child Health Examination Form [...] AM CDT Narrative [facility] RAD - 05/22/2024 5:15 PM CDT ?[facility] ? Test Date: ?2024-05-20 Pat Name: ? AZALIAMAYRA BUSCHKODAK ?Department: ?? 85 ? Room: ? Gender: ? Female ? Packing House Supervisor: ?? : ?2005 ? Requested By: NIKA FITZGERALD Order Number: [id number] ? Reading : ?? Buddy Allen ? Measurements Intervals ?Whitt ? Rate: ? 70 ? P: ?53 HI: ? 182 ?QRS: ?47 QRSD: ? 96 ? T: ?33 QT: ? 363 ? QTc: ?392 ? Interpretive Statements SINUS RHYTHM Compared to ECG 10/19/2019 11:32:52 No significant changes Procedure Note Buddy Allen MD - 05/22/2024 [facility] Test Date: 2024-05-20 Pat Name: AZALIA NERI Department: 85 Room: Gender: Female Packing House Supervisor: : 2005 Requested By: NIKA FITZGERALD Order Number: [id number] Reading MD: Buddy Allen Measurements Intervals Whitt Rate: 70 P: 53 HI: 182 QRS: 47 QRSD: 96 T: 33 QT: 363 QTc: 392 Interpretive Statements SINUS RHYTHM Compared to ECG 10/19/2019 11:32:52 No significant changes us Nika WOOD-TIP ECG ORDERABLES Final Re sult [facility] RAD documented in this encounter Visit [...] Total Score: 0 10/28/19 24 4:50 PM SANDWICH HAND documented as of this encounter Care Teams Printing Plate Maker Relationship Specialty Start Date End Date Nika Fitzgerald FNP-BC [address], [address] [place] [address] PCP - General Nurse Practitioner Family 10/28/23 documented as of this encounter
--- OUTSIDE RECORDS SUMMARY | 2024-10-25 17:05 | XMS_ITS | Encounter Summary ---
Author Organization [facility] Address [facility] [place] [address] [place] [address] Care Team Providers Care Drupal Developer Name Role Phone Monet SilverP- Primary Care [...] Total Score: 0 10/28/19 24 4:50 PM INTENSIVE CARE MEDICINE SPECIALIST documented as of this encounter Care Teams Drupal Developer Relationship Specialty Start Date End Date Monet Silver FNP-BC [address], [address] [place] [address] PCP - General Nurse Practitioner Family 10/28/23 documented as of this encounter
--- OUTSIDE RECORDS SUMMARY | 2024-10-25 17:06 | XMS_ITS | Encounter Summary ---
Author Organization [facility] Address [address] [place] [address]. [place] [address] [place] [address] Care Team Providers Care Chip Unloader Name Role Phone Unavailable Primary Care Provider Unavailabl e Encounter Details Date Type Department Care Team (Latest Contact Info) Description 06/23/2016 Abstract [facility] Medical Group Social History Tobacco Use Types [...]
--- OUTSIDE RECORDS SUMMARY | 2024-10-25 17:06 | XMS_ITS | Encounter Summary ---
Author Organization [facility] Address [address] [place] [address]. [place] [address] [place] [address] Care Team Providers Care Rn Transplant Name Role Phone Unavailable Primary Care Provider Unavailabl e Encounter Details Date Type Department Care Team (Late st Contact Info) Description 04/28/2018 Abstract [facility] Medical Group Family & Internal Medicine [facility] [address] [place] [address] Lena Brown MD Social History [...] in this encounter Progress Notes * Hedy Lyles SYSTEM ADMINISTRATOR - 04/28/2018 1:20 PM CDT Reason For Visit New Patient Visit, Health Software Quality Specialist Complaint Pt. is here to establish care with Hedy. She is here with her mother and her older sister. [facility] Pt. is needing a sports physical done [...] 1. No Known Drug Allergies Vitals Recorded: [id number] 01:23PM Temperature 98.5 F Heart Rate 85 [...] date on vaccinations today. Recommend to see recovery operator. F/U annually and PRN. Recommended influenza vaccination in the fall. Signatures Electronically signed by : Hedy Lyles APN; Apr 29 2018 2:53PM OPTIMIZATION CONSULTANT (Author) documented in this encounter Plan of Treatment Not on file documented as of this encounter Visit Diagnoses Not on filedocumented in this encounter
--- OUTSIDE RECORDS SUMMARY | 2024-10-25 17:06 | XMS_ITS | Encounter Summary ---
Author Organization [facility] Address [facility] [place] [address] [place] [address] Care Team Providers Care Site Coordinator Name Role Phone Unavailable Primary Care Provider Unavailabl e Encounter Details Date Type Department Care Team (Late st Contact Info) Description 09/29/2015 Abstract [facility] Diagnostic Imaging [address] [place] [address] Jeffrey Galloway MD [address] [place] [address] Social History Tobacco Use Types Packs/Day Years [...]
--- OUTSIDE RECORDS SUMMARY | 2024-10-25 17:06 | XMS_ITS | Encounter Summary ---
Author Organization [facility] Address [address] [place] [address]. [place] [address] [place] [address] Care Team Providers Care Human Geography Faculty Member Name Role Phone Unavailable Primary Care Provider Unavailabl e Encounter Details Date Type Department Care Team (Latest Contact Info) Description 05/09/2018 Abstract [facility] Medical Group Hedy Lyles NP Social History [...]
--- OUTSIDE RECORDS SUMMARY | 2024-10-25 17:06 | XMS_ITS | Encounter Summary ---
Author Organization [facility] Address [address] [place] [address]. [place] [address] [place] [address] Care Team Providers Care Veneer Redrier Name Role Phone Christina Reid Primary Care Provider [phone] Encounter Details Date Type Department Care Team [...] on filedocumented in this encounter Care Teams Veneer Redrier Relationship Specialty [place] [address] [address] [place], [place] [id number] PCP - General PHYSICIAN MUTUEL CLERK 12/29/19 10/27/23 documented as of this encounter
--- OUTSIDE RECORDS SUMMARY | 2024-10-25 17:06 | XMS_ITS | Encounter Summary ---
Author Organization [facility] Address [address] [place] [address]. [place] [address] [place] [address] Care Team Providers Care Shale Miner Name Role Phone Unavailable Primary Care Provider Unavailabl e Reason for Visit * Reason Comments Chest Pain upper central Encounter Details Date Type Department Care Team (Late st Contact Info) Description 10/19/2019 11:16 AM INCOME TAX ANALYST - 10/19/2019 12:02 PM [facility] Emergency [facility] Emergency Room [address] [place] [address] Brandyn Ingram PA [address] [place] [address] Chest Pain (upper central) Discharge Disposition: Home [...] Comments Blood Pressure 102/57 10/19/2019 11:19 AM INCOME TAX ANALYST Pulse 77 10/19/2019 11:19 AM INCOME TAX ANALYST Temperature 36.2 ??C (97.2 ??F) 10/19/2019 11:[address] Respiratory Rate 16 10/19/2019 11:19 AM INCOME TAX ANALYST Oxygen Saturation 100% 10/19/2019 11:19 AM INCOME TAX ANALYST Inhaled Oxygen Concentration - - Weight 71.7 kg (158 lb) 10/19/2019 11:19 AM INCOME TAX ANALYST Height 175.3 cm (5' 9 ) 10/19/2019 11:19 AM INCOME TAX ANALYST Body Mass Index 23.33 10/19/2019 11:19 AM INCOME TAX ANALYST Body Mass Index Percentile 82.21% 10/19/2019 11: 19 AM INCOME TAX ANALYST Growth Chart: [facility] (Girls, 2- 20 Years) documented in this encounter Discharge Instructions * Discharge Instructions* CHAPARRITA Anaya - 10/19/2019 11:57 AM INCOME TAX ANALYST Use pern-aaq-uukuspy ibuprofen as directed for pain. Follow-up with primary care provider in 5 to 7days. Return emergency department symptoms worsen or new concerns. ME TAX ANALYST * Attachments The following attachments cannot be sent through Care Everywhere. * Chest Pain in Children and Teens Discharge Instructions (Bangladeshi) documented in this encounter Medications at Time [...] encounter of 10/19/19 ECG 12 lead Narrative [facility] Test Date: 2019-10-19 Pat Name: AZALIA NERI Department: Room: EXAM 404 Gender: Female Pony Ride Operator: : 2005 Requested By: BRANDYN INGRAM Order Number: [id number] Britta MD: Measurements Intervals [place] Rate: 66 P: 12 MA: 180 QRS: 55 QRSD: 94 T: 42 QT: 399 QTc: 420 Interpretive Statements ..PEDIATRIC ECG INTERPRETATION SINUS RHYTHM WITH PROLONGED MA FOR AGE No previous ECG available for [...] List Disposition: Discharge Follow-Up: Hedy Lyles NP [address] [place] [address] [place] [address] Schedule an appointment as soon as possible for a visit in 1 week As needed CHAPARRITA Anaya 10/19/2019 CHAPARRITA Anaya 10/19/19 1157 Cosigned by Eric Judd MD at 10/20/2019 5:04 PM INCOME TAX ANALYST ME TAX ANALYST ME TAX ANALYST * Alecia Finney RN - 10/19/2019 11:16 AM CST Patient states chest pain started last night, upper mid chest - describes it as sharp pain almost like a burn, intermittent pain 01/28 No n/v/d Has had cough for few days, non productive Pain a little worse with cough ME TAX ANALYST documented in this encounter Plan of Treatment Not on file documented as of this encounter Procedures Procedure Name Priority Date/Time Associated Diagnosis Comments ECG 12-LEAD Routine 10/19/2019 11:32 AM INCOME TAX ANALYST documented in this encounter Results * ECG 12 lead (10/19/2019 11:32 AM INCOME TAX ANALYST) 10/19/2019 11:3 2 AM INCOME TAX ANALYST Narrative [facility] ([facility]) RAD - 10/23/2019 11:18 PM INCOME TAX ANALYST ? [facility] ? Test Date: ?2019-10-19 Pat Name: ? AZALIA NERI ?Department: ? Room: ? EXAM 404 Gender: ? Female ? Pony Ride Operator: ?? : ?2005 ? Requested By: BRANDYN INGRAM Order Number: [id number] ? Reading MD: ?? Teresa Aldridgelas ? Measurements Intervals ?[place] ? Rate: ? 66 ? P: ?12 MA: ? 180 ?QRS: ?55 QRSD: ? 94 ? T: ?42 QT: ? 399 ? QTc: ?420 ? Interpretive Statements ..PEDIATRIC ECG INTERPRETATION SINUS RHYTHM Upright T In V1 Or V2 Probable RVH ME TAX ANALYST Procedure Note Teresa Trevino MD - 10/23/2019 [facility] Test Date: 2019-10-19 Pat Name: AZALIA NERI Department: Room: EXAM 404 Gender: Female Pony Ride Operator: : 2005 Requested By: BRANDYN INGRAM Order Number: [id number] Reading AMANDA Trevino Measurements Intervals [place] Rate: 66 P: 12 MA: 180 QRS: 55 QRSD: 94 T: 42 QT: 399 QTc: 420 Interpretive Statements ..PEDIATRIC ECG INTERPRETATION SINUS RHYTHM Upright T In V1 Or V2 Probable RVH ME TAX ANALYST us Brandyn CHEATHAM ECG ORDERABLES Final Resul t [facility] RAD documented in this encounter Visit Diagnoses Diagnosis Pleuritic chest pain- Primary Painful respiration documented in this encounter
--- OUTSIDE RECORDS SUMMARY | 2024-10-25 17:06 | XMS_ITS | Encounter Summary ---
Author Organization [facility] Address [address] [place] [address]. [place] [address] [place] [address] Care Team Providers Care Oil And Gas Lease Pumper Name Role Phone Christina Reid Primary Care Provider [phone] Encounter Details Date Type Department Care Team [...] Coronavirus/COVID-19? No / Unsure 12/10/2021 8:52 AM CONTROL CLERK SUBASSEMBLY documented as of this encounter Plan of Treatment Not on file documented as of this encounter Visit Diagnoses Not on filedocumented in this encounter Care Teams Oil And Gas Lease Pumper Relationship Specialty [place] [address] [place] [address] PCP - General PHYSICIAN ACADEMIC COORDINATOR 12/29/19 10/27/23 documented as of this encounter
--- OUTSIDE RECORDS SUMMARY | 2024-10-25 17:06 | XMS_ITS | Encounter Summary ---
Author Organization [facility] Address [facility] [place] [address] [place] [address] Care Team Providers Care Vp Foundation Name Role Phone Christina Reid Primary Care Provider Reason for Visit * Reason Comments Follow Up right ear feels clog ged, sinus infection improving Encounter Details Date Type Department Care Team (Late st Contact Info) Description 12/29/2019 1:40 PM CDT Office Visit [facility] Family & Internal Medicine [facility] [address] [place] [address] [place] [id number] [place] [address] Follow Up (right ear feels clogged, [...] 12/29/2019 1:4 2 PM CDT Growth Chart: [facility] (Girls, 2- 20 Years) documented in this encounter Progress Notes * CHAPARRITA Maria - 12/29/2019 1:40 PM CDT Images from the original note were not included. _ Reason for Visit: Follow Up (right ear feels clogged, sinus infection improving) History of Present Illness: [facility] Azalia Neri is a 14-year-old female here [...] and Plan: She will continue with the hkev-zkd-vgucnwr Mucinex Tylenol Motrin as needed mdba-qwr-bnnrnuw on antibiotics she will return if her [...] Primary documented in this encounter Care Teams Vp Foundation Relationship Specialty [place] [address] [place] [address] PCP - General PHYSICIAN OIL FURNACE INSTALLER 12/29/19 10/27/23 documented as of this encounter
--- OUTSIDE RECORDS SUMMARY | 2024-10-25 17:06 | XMS_ITS | Encounter Summary ---
Author Organization [facility] Address [facility] [place] [address] [place] [address] Care Team Providers Care Optical Goods Drill Operator Name Role Phone Unavailable Primary Care Provider Unavailabl e Reason for Visit * Reason Comments URI/ENT Symptoms Sore throat, headach es, chest congestion, productive cough. Symptoms for almost a week. Has been taking dayquil with some relief Encounter Details Date Type Department Care Team (Late st Contact Info) Description 11/23/2019 3:20 PM RN RENAL Office Visit [facility] Medical Group Family & Internal Medicine [facility] [address] [place] [address] [place] [address] [place] [address] URI/ENT Symptoms (Sore throat, headaches, [...] Comments Blood Pressure 102/66 11/23/2019 3:34 PM RN RENAL Pulse 77 11/23/2019 3:34 PM RN RENAL Temperature 36.7 ??C (98.1 ??F) 11/23/2019 3:34 PM CS T Respiratory Rate 18 11/23/2019 3:34 PM RN RENAL Oxygen Saturation 98% 11/23/2019 3:34 PM RN RENAL Inhaled Oxygen Concentration - - Weight 73.9 kg (163 lb) 11/23/2019 3:34 PM RN RENAL Height 176.5 cm (5' 9.5 ) 11/23/2019 3:34 PM RN RENAL Body Mass Index 23.73 11/23/2019 3:34 PM RN RENAL Body Mass Index Percentile 83.91% 11/23/2019 3:3 4 PM RN RENAL Growth Chart: [facility] (Girls, 2- 20 Years) documented in this encounter Patient Instructions * Patient Instructions* CHAPARRITA Maria - 11/23/2019 3:20 PM RN RENAL Images from the original note were not [...] a week. Where can I learn more? [employer] https://americanmigrainefoundation.org/understanding-migraine/sinus-headaches/ NHS Choices http://www.nhs.uk/conditions/sinus-headache/Pages/Introduction.aspx Last [...] right for you. Copyright Copyright ?? 2019 [employer]. and its affiliates and/or licensors. All rights reserved. RENAL documented in this encounter Progress Notes * [...] the 11/23/19 encounter (Office Visit) with CHAPARRITA Marai Medication Sig Dispense Refill ??? amoxicillin 500 MG capsule Take 1 capsule (500 mg total) by mouth 3 (three) times daily for 10 days. 30 capsule 0 ??? loratadine 10 MG tablet Take 10 mg by mouth daily. ??? Acluhauffpdcofh-ZX-AL-APAP (DAYQUIL LIQUICAPS OR) Take 2 tablets by [...] MG capsule Orders Placed This Encounter ??? Qpahrjxxavjalob-DY-BL-APAP (DAYQUIL LIQUICAPS OR) ??? amoxicillin 500 MG [...] Buddy Allen MD at 11/23/2019 5:09 PM RN RENAL RENAL RENAL documented in this encounter Plan of Treatment Not on file documented as of this encounter Visit Diagnoses Diagnosis Acute non-recurrent frontal sinusitis- Primary documented in this encounter
--- OUTSIDE RECORDS SUMMARY | 2024-10-25 17:06 | XMS_ITS | Encounter Summary ---
Author Organization [facility] Address [facility] [place] [address] [place] [address] Care Team Providers Care Minibus Driver Name Role Phone Christina Reid Primary Care Provider [phone] Reason for Visit * Reason Comments Sports Physical Encounter Details Date Type Department Care Team (Late st Contact Info) Description 12/13/2021 4:00 PM SECURITY DEVELOPER Office Visit [facility] Medical Group Family & Internal Medicine - [place] [address] [place] [address] [place] [address] [place], [place] [id number] Sports Physical Social History Tobacco Use Types [...] Coronavirus/COVID-19? No / Unsure 12/13/2021 3:51 PM SECURITY DEVELOPER documented as of this encounter Last Filed Vital Signs Vital Sign Reading Time Taken Comments Blood Pressure 102/70 12/13/2021 3:55 PM SECURITY DEVELOPER Pulse 85 12/13/2021 3:55 PM SECURITY DEVELOPER Temperature 36.6 ??C (97.9 ??F) 12/13/2021 3:55 PM CS T Respiratory Rate 18 12/13/2021 3:55 PM SECURITY DEVELOPER Oxygen Saturation 99% 12/13/2021 3:55 PM SECURITY DEVELOPER Inhaled Oxygen Concentration - - Weight 76.7 kg (169 lb) 12/13/2021 3:55 PM SECURITY DEVELOPER Height 176.5 cm (5' 9.5 ) 12/13/2021 3:55 PM SECURITY DEVELOPER Body Mass Index 24.6 12/13/2021 3:55 PM SECURITY DEVELOPER Body Mass Index Percentile 82.39% 12/13/2021 3:5 5 PM SECURITY DEVELOPER Growth Chart: [facility] (Girls, 2- 20 Years) documented in [...] Portions of this note were dictated using [employer] speech recognition software. Occasional wrong wordor sound-alike substitutions may have occurred due to the inherent limitations of voice recognition software. Please read the chart carefully and recognize, using context, where the substitutions may have occurred. Christina Reid PA-C evaluated and Dr Buddy Allen reviewed and agrees with plan. Cosigned by Buddy Allen MD at 12/14/2021 7:40 AM SECURITY DEVELOPER RITY DEVELOPER RITY DEVELOPER documented in this encounter Plan of Treatment Not on file documented as of this encounter Visit Diagnoses Diagnosis Routine sports physical exam- Primary Other general medical examination for administrative purposes documented in this encounter Additional Health Concerns Assessment Noted Time PHQ-9 Depression Total Score: 0 12/13/19 22 3:57 PM SECURITY DEVELOPER documented as of this encounter Care Teams Minibus Driver Relationship Specialty [place] [address] [place] [address] PCP - General PHYSICIAN MANAGER OF CUSTOMER BILLING 12/29/19 10/27/23 documented as of this encounter
--- OUTSIDE RECORDS SUMMARY | 2024-10-25 17:06 | XMS_ITS | Encounter Summary ---
Author Organization [facility] Address [facility] [place] [address] [place] [address] Care Team Providers Care National Business Director Name Role Phone Unavailable Primary Care Provider Unavailabl e Encounter Details Date Type Department Care Team (Late st Contact Info) Description 07/08/2010 Abstract [facility] [address] [place] [address] Monique Fair MD [address] [place], [place] [address] Social History Tobacco Use Types Packs/Day Years [...]
--- OUTSIDE RECORDS SUMMARY | 2024-10-25 17:06 | XMS_ITS | Encounter Summary ---
Author Organization [facility] Address [facility] access hospital[facility] [place] [address] [place] [address] Care Team Providers Care Biotech Production Specialist Name Role Phone Christina Reid Primary Care Provider [phone] Encounter Details Date Type Department Care Team [...] on filedocumented in this encounter Care Teams Biotech Production Specialist Relationship Specialty [place] [address] [place] [address] PCP - General PHYSICIAN HAT LINING PASTER 12/29/19 10/27/23 documented as of this encounter
--- OUTSIDE RECORDS SUMMARY | 2024-10-25 17:06 | XMS_ITS | Encounter Summary ---
Author Organization [facility] Address [address] [place] [address]. [place] [address] [place] [address] Care Team Providers Care Concaver Name Role Phone Christina Reid Primary Care Provider [phone] Encounter Details Date Type Department Care Team [...] Coronavirus/COVID-19? No / Unsure 12/13/2021 3:51 PM FRONT LOADER RESIDENTIAL DRIVER documented as of this encounter Plan of Treatment Not on file documented as of this encounter Visit Diagnoses Not on filedocumented in this encounter Additional Health Concerns Assessment Noted Time PHQ-9 Depression Total Score: 0 12/13/19 22 3:57 PM FRONT LOADER RESIDENTIAL DRIVER documented as of this encounter Care Teams Concaver Relationship Specialty [place] [address] [place] [address] PCP - General PHYSICIAN CANTEEN ATTENDANT 12/29/19 10/27/23 documented as of this encounter
--- OUTSIDE RECORDS SUMMARY | 2024-10-25 17:06 | XMS_ITS | Encounter Summary ---
Author Organization [facility] Address [facility] [place] [address] [place] [address] Care Team Providers Care Equal Opportunity Officer Name Role Phone Unavailable Primary Care Provider Unavailabl e Encounter Details Date Type Department Care Team (Latest Contact Info) Description 05/26/2018 Abstract [facility] Martinez Myers MD [...] Md, MD - 05/26/2018 2:19 PM CDT [facility] Authorization Release of Information First Name: Azalia Ryan initial: Last Name: Halle Álvarez Maggie authorize [facility] to release any and all healthcare information about me to my [facility] personal health record for my own [...] history. I acknowledge that with this authorization [facility] may disclose any information or records (within the scope of the authorization) that [facility] has received about me from other healthcare Practices or facilities. [facility] may, within its discretion, withhold from disclosure any of the above information as permitted or required by law. Access to treatment or services may not be denied to me if I decline to sign this Authorization or revoke my Authorization. However, without this Authorization, my Practice will not electronically release my healthcare information to my [facility] personal health record. I may revoke this Authorization at any time. Such revocation will promptly take effect except to the extent that [facility] already has acted based on this Authorization. I may revoke this Authorization by removing [facility] as a health care Practice with whichI want to be connected on my [employer] account or providing my request to [facility]. However, I acknowledge that data previously submitted by [facility] as authorized by me prior to my subsequent revocation of this Authorization will remain in my Follow [employer] account. I understand that I may delete my [employer] account any time. This authorization shall end upon the earliest of: a) the termination of the connection between my healthcare Practice and my [employer] Account; or b) upon my written request submitted to [email or web address]. For Authorized Representatives of Patients younger than 18 years old: This Authorization shall upon the earliest of: (1) the date the minor reaches the age of 18; or (2) the date [facility] receives written revocation from the minor, as an emancipated minor with legal authority to managehis/her own healthcare. I understand that the information submitted to my [facility] account is subject to the privacy and security protections of applicable Federal and State laws. I further understand and acknowledge that the manner in which [facility] protects my personal information is detailed in the [facility] Privacy Policy and the [facility] Terms of Use. I understand that [facility] is not responsible for the security of data stored in the [facility] database, and that the owners of [facility] are responsible for ensuring the securityof the data stored in [employer]. I have the right to receive a copy of this Authorization and may do so by clicking [Print] above. Signed on 05/26/2018 Please complete the following information: Halle Azalia 2005 If signing on behalf of a Patient, please complete the following: Relationship to Patient: [Place x in the appropriate box below] [ ] Patient [X] Parent/Guardian/Other Legal Slip Caster By clicking [I ACCEPT], I acknowledge and agree to the terms of this Authorization. * Generic Parveen Myers MD - 05/26/2018 2:19 PM CDT [employer] Authorized Individual Authorization - Full Access By accepting where indicated below, I hereby authorize Jane Neri (hereinafter, Authorized Individual ) to have full access to my [employer] personal health record. By authorizing Authorized Individual to have full access to my [employer] account, I acknowledge and agree that I am authorizing Authorized Individual to: *Review and update my personal health record as maintained on [employer]; *Communicate with my health care providers with regard to my health status and otherwise; *Engage, on my behalf, in such transactions as are permitted between me and my health care providers through all existing communication channels including, but not limited to, Health As We Age I understand that that once my information is disclosed to Authorized Individual, I will no longer have control over my health information and Authorized Individual may re-disclose my health information in such manner as Authorized Individual may determine from time to time. [employer] will not be resp onsible for re-disclosures by Authorized Individual. Authorization for Disclosure of PHI from [facility] to Authorized Individual By accepting where indicated below, I hereby authorize: [facility], on its own behalf and on behalf of: (1) all of its subsidiaries and otherwise affiliated entities for which it has the authority to act; (2) each of their respective employees, independent contractors and agents; and (3) each of their respective employed or contracted health care providers, as applicable (collectively, [facility] , to disclose the following information to the above named Authorized Individual: Any and all data and health information about me maintained by [facility], including but not limited to information related to the following types of records or information: billing and account statements, prescription drug information, secured e-mail transmissions between myself and [facility], and clinical testing and laboratory results, including but not limited, to genetic testing information, mental health treatment information (excluding psychotherapy notes), infectious disease information (including HIV status), information regarding mental, physical or sexual abuse; and substance abuse treatment information. [facility] may, within its discretion, elect to [...] (within the scope of this authorization) that [facility] has received from other healthcare providers or facilities. The purpose of this authorization is to enable Authorized Individual, on my behalf and in my stead,to access and maintain my personal health record on [employer], and otherwise to communicate with and engage in transactions with my health care providers, subject to my control and direction. This authorization shall upon (1) my termination of my FollowMy[employer] account; or (2) my removal of Authorized Individual as an authorized user of [employer]. I may terminate my FollowMy[employer] Account or terminate an Authorized Individual by following the directions on my [employer] account at any time. In addition, I can request assistance from [employer] in so doing by sending an email to [email or web address] By signing where indicated below, I acknowledge that: I may revoke this Authorization at any time. Such revocation will promptly take effect except to the extent that my health care provider has already acted based on this Authorization. I may revoke this Authorization by removing Authorized Individual as an authorized user of my [employer] account. I understand that when I remove Authorized Individual as an authorized user of my [employer] a ccount, I will be prompted by [employer] to submit a Revocation of Authorization form [...] found in the documents section of my [employer] account. Signed on 05/26/2018 Fill in the following information: Last Name, First Name and AL: Jane Neri Proxy For Azalia Neri Date of : [DD/MM/YYYY] 2005 Contact Information for Jane Neri Phone Number Mailing Address Relationship to subject of information: [Place x in the appropriate box below] [] Patient [X] Parent/Guardian/Other Legal Slip Caster By clicking [I ACCEPT], I acknowledge and agree to the terms of this authorization. documented in this encounter Plan of Treatment Not on file documented as of this encounter Visit Diagnoses Not on filedocumented in this encounter
--- OUTSIDE RECORDS SUMMARY | 2024-10-25 17:06 | XMS_ITS | Encounter Summary ---
Author Organization [facility] Address Formerly [facility] [place] [address] [place] [address] Care Team Providers Care Assurance Engineer Name Role Phone Christina Reid Primary Care Provider [phone] Encounter Details Date Type Department Care Team [...] on filedocumented in this encounter Care Teams Assurance Engineer Relationship Specialty [place] [address] [place] [address] PCP - General PHYSICIAN PLANER STONE 12/29/19 10/27/23 documented as of this encounter
--- OUTSIDE RECORDS SUMMARY | 2024-10-25 17:06 | XMS_ITS | Encounter Summary ---
Author Organization [facility] Address Formerly [facility] [place] [address] [place] [address] Care Team Providers Care Sales Representative Advertising Name Role Phone Christina Reid Primary Care Provider Reason for Visit * Reason Comments School Physical Sports- sophomore Encounter Details Date Type Department Care Team (Late st Contact Info) Description 06/08/2020 4:00 PM CDT Office Visit [facility] Family & Internal Medicine [facility] [address] [place] [address] Christina [place] [id number] [place] [address] School Physical (Sports- sophomore ) Social [...] 06/08/2020 4:0 4 PM CDT Growth Chart: [facility] (Girls, 2- 20 Years) documented in this encounter Progress Notes * CHAPARRITA Rodriguez - 06/08/2020 4:00 PM CDT Images from the original note were not included. Office Progress Note Encounter Date: 06/08/2020 Reason for Visit: School Physical (Sports- sophomore ) Physical for basketball possibly softball Patient reports she did the echocardiogram screening through the [facility] and hada normal exam. History of Present [...] as needed. , Disp: , Rfl: ??? Sforbcnyaakywkh-OY-NG-APAP (DAYQUIL LIQUICAPS OR), Take 2 tablets by [...] purposes documented in this encounter Care Teams Sales Representative Advertising Relationship Specialty [place] [address] [place] [address] PCP - General PHYSICIAN TRAPPER BIRD 12/29/19 10/27/23 documented as of this encounter
--- OUTSIDE RECORDS SUMMARY | 2024-10-25 17:06 | XMS_ITS | Encounter Summary ---
Author Organization [facility] Address [address] [place] [address]. [place] [address] [place] [address] Care Team Providers Care Poultry Dressing Worker Name Role Phone Christina Reid Primary Care Provider [phone] Encounter Details Date Type Department Care Team [...] Coronavirus/COVID-19? No / Unsure 12/13/2021 3:51 PM CORE LAYER MACHINE OPERATOR documented as of this encounter Plan of Treatment Not on file documented as of this encounter Visit Diagnoses Not on filedocumented in this encounter Additional Health Concerns Assessment Noted Time PHQ-9 Depression Total Score: 0 12/13/19 22 3:57 PM CORE LAYER MACHINE OPERATOR documented as of this encounter Care Teams Poultry Dressing Worker Relationship Specialty [place] [address] [place] [address] PCP - General PHYSICIAN SKY LINE YARDER 12/29/19 10/27/23 documented as of this encounter
--- OUTSIDE RECORDS SUMMARY | 2024-10-25 17:06 | XMS_ITS | Encounter Summary ---
Author Organization [facility] Address [address] [place] [address]. [place] [address] [place] [address] Care Team Providers Care Experimental Mechanic Electrical Name Role Phone Christina Reid Primary Care Provider [phone] Encounter Details Date Type Department Care Team [...] on filedocumented in this encounter Care Teams Experimental Mechanic Electrical Relationship Specialty [place] [address] [place] [address] PCP - General PHYSICIAN SKIVER MACHINE 12/29/19 10/27/23 documented as of this encounter
--- OUTSIDE RECORDS SUMMARY | 2024-10-25 17:06 | XMS_ITS | Encounter Summary ---
Author Organization [facility] Address [address] [place] [address]. [place] [address] [place] [address] Care Team Providers Care Compliance Engineer Products Name Role Phone Unavailable Primary Care Provider Unavailabl e Encounter Details Date Type Department Care Team (Late st Contact Info) Description 04/13/2008 Abstract [facility] CONVERSION [address] [place] [address] , Generic Conversion, Social History Tobacco Use [...]
--- OUTSIDE RECORDS SUMMARY | 2024-10-25 17:06 | XMS_ITS | Encounter Summary ---
Author Organization [facility] Address [address] [place] [address]. [place] [address] [place] [address] Care Team Providers Care Auto Radiator Mechanic Name Role Phone Christina Reid Primary Care Provider [phone] Encounter Details Date Type Department Care Team [...] Total Score: 0 12/13/19 22 3:57 PM NEEDLEMAKER documented as of this encounter Care Teams Auto Radiator Mechanic Relationship Specialty [place] [address] [place] [address] PCP - General PHYSICIAN CONSULTING SYSTEMS ENGINEER 12/29/19 10/27/23 documented as of this encounter
--- OUTSIDE RECORDS SUMMARY | 2024-10-25 17:06 | XMS_ITS | Encounter Summary ---
Author Organization [facility] Address [facility]6 [facility] [place] [address] [place] [address] Care Team Providers Care Farmworker Livestock Name Role Phone Christina Reid Primary Care Provider Reason for Visit * Reason Comments Physical Pt here for well chi ld and sports physical and meningitis shot Encounter Details Date Type Department Care Team (Late st Contact Info) Description 07/18/2022 3:00 PM CDT Office Visit [facility] Medical Group Family & Internal Medicine [facility] [address] [place] [address] Christina Reid [place] [id number] [place] [address] Physical (Pt here for well child [...] 07/18/2022 2:5 1 PM CDT Growth Chart: [facility] (Girls, 2- 20 Years) documented in this [...] 16 ounces (2 cups) per day. 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 Before your teen considers this, make sure that he/she is fulfilling his/her goals at home and at school. The [employer] of the [employer] suggests these guidelines: No more than [...] encounter Progress Notes * CHAPARRITA Maria - 07/18/2022 3:00 PM CDT Images from [...] meningococcus Z23 V03.89 REQUIRES A MENINGITIS VACCINATION [68317] MenQuadfi (MENINGOCOCCAL CONJUGATE VAC) 2. Encounter for routine child health examination without abnormal findings Z00.129 V20.2 PATIENT ENCOUNTER STATUS See forms completed for patient's physical. Orders Placed This Encounter ??? [[id number]] MenQuadfi (MENINGOCOCCAL CONJUGATE VAC) Patient should follow annual wellness exams recommended for age and sex of patient. Items to consider but not limited included yearly annual fasting labs, colonscopy or cologuard when indicated. PSA and prostate for males. Mammogram and female exam for females, Portions of this note were dictated using [employer] speech recognition software. Occasional wrong wordor sound-alike [...] Total Score: 0 12/13/19 22 3:57 PM ANAESTHETIC TECHNICIAN documented as of this encounter Care Teams Farmworker Livestock Relationship Specialty [place] [address] [place] [address] PCP - General PHYSICIAN ASSIGNMENT MANAGER 12/29/19 10/27/23 documented as of this encounter
--- OUTSIDE RECORDS SUMMARY | 2024-10-25 17:06 | XMS_ITS | Encounter Summary ---
Author Organization [facility] Address [address] [place] [address]. [place] [address] [place] [address] Care Team Providers Care Microwave Supervisor Name Role Phone Unavailable Primary Care Provider Unavailabl e Encounter Details Date Type Department Care Team (Late st Contact Info) Description 08/23/2005 Abstract [facility] CONVERSION [address] [place] [address] Ashlee Prasad MD [address] [place] [address] Social History Tobacco Use Types [...]
--- OUTSIDE RECORDS SUMMARY | 2024-10-25 17:06 | XMS_ITS | Encounter Summary ---
Author Organization [facility] Address Formerly [facility]6 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 Medications: Current Outpatient Medications: ??? kvbwtjpv-kmfiknpwp-xrfanntvtipqem otic solution, Place 3 drops in ear(s) [...] file Gets together: Not on file Attends hoahaoism service: Not on file Active member of [...] and Plan: Orders Placed This Encounter ??? ltbvcevb-cafcuiegd-wpgyacuaxetrhy otic solution Normal physical today and forms [...]
--- OUTSIDE RECORDS SUMMARY | 2024-10-25 17:08 | XMS_ITS | Clinical Summary ---
Author Organization [facility] Address [address] [place] [address] Phone Care Team Providers Care Schedule Checker Name Role Phone Hedy Lyles APRN, BATTERY CONTAINER FINISHING HAND Primary Care Provider Unavailable Allergies No known [...] Plan of Treatment Not on file Insurance [facility] Care Teams Schedule Checker Relationship Specialty Start Date End Date Hedy Lyles APRN, MIN[place] PCP - General Family Medicine 04/25/19
== END 2024-10-18 14:58 | disposition home or self-care (01) ==
PROVIDERS: Emergency Provider Nurse Practitioner Family; PCP Nurse Practitioner Family
DX: J06.9 Acute upper respiratory infection, unspecified (principal); Z20.822 Contact with and (suspected) exposure to COVID-19
CPT/HCPCS: 87081; 87426; 87804; 87880; 99213; G0463